=== PATIENT | female | born 1980 | race Caucasian/White ===

== ENCOUNTER 2016-12-03 22:26 | Emergency (ER) | payer OTHER ==
[~2016-12-03] VITALS: Ht 157.5 cm; Wt 65.0 kg
[~2016-12-03 22:26] MED LIST: BUSP10 PO; SOMA350T PO; VIST50CA PO
[2016-12-03 22:33] VITALS: BP 161/77; PULSE 98; RESP 18; TEMP 97.9; O2SAT 18; O2SAT 98
--- NOTE | 2016-12-03 22:41 | PD ---
HPI Chief Complaint: Fall Time Seen by Provider: 22:34 Travel History International Travel<30 days: No Contact w/Intl Traveler<30days: No Traveled to known affect area: No History of Present Illness HPI This is a 36-year-old female who presents to the emergency department having fallen in the bathroom being found by her . The patient hit her head. The patient has been drinking alcohol today. She also took some of her ' s Xanax yesterday. She says she's been very depressed. She is a full-time student and she has 4 children. She has been hospitalized at [facility] before in the setting of depression. She says her problems with alcohol have been more recent. She does intermittently have thoughts of hurting herself and she think she needs to talk to a psychiatrist. [facility] Past Medical History Arthritis: No Bipolar Disorder: Yes Depression: Yes Cancer: No Cardiovascular Problems: Yes (htn ) Cerebrovascular Accident: No Diabetes: No Diminished Hearing: No Endocrine: No Gastrointestinal Disorders: No Genitourinary: No Headaches: Yes Hypertension: Yes Immune Disorder: No Implanted Vascular Access Dvce: No Musculoskeletal: Yes (SCOLIOSIS) Neurologic: Yes (MIGRAINES, HEADACHES) Psychiatric: No Reproductive: No Respiratory: No Immunizations Current: Yes Migraines: No Seizures: No Influenza Vaccination: No ?: Not LMP: 2012- tubal : 5 Para: 4 Miscarriage: 1 Tubal Ligation: Yes (2011) Past Surgical History Abdominal Surgery: Yes (gastric bypass: 2008) Cardiac Surgery: No Section: Yes (X2) Ear Surgery: No Endocrine Surgery: No Eye Surgery: No Genitourinary Surgery: No Gynecologic Surgery: Yes (C SECTION, TUBAL LIGATION) Oral Surgery: No Thoracic Surgery: No Other Surgery: Yes (GASTRIC BYPASS, TUMMY TUCK, BREAST LIFT) Social History Alcohol Use: Yes ("I AM AN ALCOHOLIC, DRINK 4 TIMES PER WEEK" STATED 05/13/16) Tobacco Use: No Substance Use: No Allergies-Medications (Allergen,Severity, Reaction): Coded Allergies: No Known Allergies (Verified , 12/03/16) Reported Meds & Prescriptions Reported Meds & Active Scripts Active No Active Prescriptions or Reported Medications Review of Systems Except as stated in HPI: all other systems reviewed are Neg Physical Exam Narrative GENERAL:Well appearing, no acute distress SKIN: Warm and dry. HEAD: Atraumatic. Normocephalic. EYES: Pupils equal and round. No injection or drainage. ENT: Moist mucous membranes NECK: Trachea midline. CARDIOVASCULAR: Regular rate and rhythm. No murmur appreciated. RESPIRATORY: Clear to auscultation. Breath sounds equal bilaterally. GASTROINTESTINAL: Abdomen soft, non-tender, nondistended. MUSCULOSKELETAL: No obvious deformities. NEUROLOGICAL: Awake and alert. No obvious cranial nerve deficits. Moving all extremities. Some slurred speech. PSYCHIATRIC: Depressed mood. Poor insight and judgment. Data Data Last Documented VS Vital Signs Date Time Temp Pulse Resp B/P Pulse Ox O2 Delivery O2 Flow Rate FiO2 12/04/16 04:20 92 14 126/65 98 Room Air 12/03/16 22:33 97.9 Orders Complete Blood Count With Diff (12/03/16 22:38) Comprehensive Metabolic Panel (12/03/16 22:38) Alcohol (Ethanol) (12/03/16 22:38) Drug Screen, Random Urine (12/03/16 22:38) ^ Insert Iv (12/03/16 22:38) Sodium Chlor 0.9% 1000 Ml Inj (Ns 1000 M (12/03/16 22:45) Tylenol (Acetaminophen) (12/03/16 22:38) Salicylates (Aspirin) (12/03/16 22:38) Ct Brain W/O Iv Contrast(Rout) (12/03/16 ) Ed Urine Pregnancytest Poc (12/03/16 22:38) Thiamine Inj (Thiamine Inj) (12/03/16 22:45) Psych Screen (12/04/16 00:10) Labs Laboratory Tests Test 12/03/16 12/03/16 22:45 22:53 White Blood Count 7.2 TH/MM3 Red Blood Count 4.60 MIL/MM3 Hemoglobin 9.0 GM/DL Hematocrit 29.2 % Mean Corpuscular Volume 63.6 FL Mean Corpuscular Hemoglobin 19.5 PG Mean Corpuscular Hemoglobin 30.7 % Concent Red Cell Distribution Width 17.3 % Platelet Count 362 TH/MM3 Mean Platelet Volume 7.2 FL Neutrophils (%) (Auto) 60.1 % Lymphocytes (%) (Auto) 28.2 % Monocytes (%) (Auto) 8.0 % Eosinophils (%) (Auto) 2.5 % Basophils (%) (Auto) 1.2 % Neutrophils # (Auto) 4.3 TH/MM3 Lymphocytes # (Auto) 2.0 TH/MM3 Monocytes # (Auto) 0.6 TH/MM3 Eosinophils # (Auto) 0.2 TH/MM3 Basophils # (Auto) 0.1 TH/MM3 CBC Comment AUTO DIFF Differential Comment AUTO DIFF CONFIRMED Platelet Estimate NORMAL Platelet Morphology Comment NORMAL Ovalocytes 1+ Acanthocytes OCC Keratocytes OCC Sodium Level 146 MEQ/L Potassium Level 3.4 MEQ/L Chloride Level 112 MEQ/L Carbon Dioxide Level 23.2 MEQ/L Anion Gap 11 MEQ/L Blood Urea Nitrogen 5 MG/DL Creatinine 0.72 MG/DL Estimat Glomerular Filtration 92 ML/MIN Rate Random Glucose 108 MG/DL Calcium Level 8.5 MG/DL Total Bilirubin LESS THAN 0.1 MG/DL Aspartate Amino Transf 21 U/L (AST/SGOT) Alanine Aminotransferase 21 U/L (ALT/SGPT) Alkaline Phosphatase 92 U/L Total Protein 7.7 GM/DL Albumin 3.7 GM/DL Urine Opiates Screen NEG Acetaminophen Level LESS THAN 2.0 MCG/ML Urine Barbiturates Screen NEG Urine Amphetamines Screen NEG Urine Benzodiazepines Screen NEG Urine Cocaine Screen NEG Urine Cannabinoids Screen NEG Ethyl Alcohol Level 297 MG/DL Salicylates Level LESS THAN 1.7 MG/DL MDM Medical Decision Making Medical Screen Exam Complete: Yes Emergency Medical Condition: Yes Interpretation(s) Afebrile, mild tachycardia, hypertensive Anemia Mild hypokalemia Alcohol [address] head: No acute process Differential Diagnosis Intracranial hemorrhage, electrolyte abnormality, alcohol intoxication, substance intoxication Narrative Course This is a 36-year-old female who presents to the emergency department having had a closed head injury in the setting of alcohol intoxication. She expressed some depression when I was speaking to her when intoxicated. She was placed in a monitor and an IV was established. Labs were obtained which were reassuring with the exception of an elevated alcohol level. CT the head was negative for intracranial hemorrhage. She was ablated by psychiatry and found not to have any emergent needs at this time. Patient will be discharged home. Diagnosis Primary Impression: Closed head injury Qualified Code: S09.90XA - Closed head injury, initial encounter Additional Impression: Alcohol intoxication Qualified Code: F10.120 - Alcohol intoxication, uncomplicated Patient Instructions: General Instructions Additional Instructions: Follow up with Lucio Schwarz in regards to psychiatric or substance related issues at: [phone] [place] [id number] Med/Other Pt SpecificInfo: No Change to Meds Scripts No Active Prescriptions or Reported Meds Disposition: 01 DISCHARGE HOME Condition: Stable Marci Walton MD Dec 03, 2016 22:41
[2016-12-03] MEDS ORDERED: THIAMINE INJ 100 MG in SODIUM CHLORIDE 0.9% INJ 100 ML IV ONE (22:45)
[2016-12-03] MEDS ORDERED: SODIUM CHLOR 0.9% 1000 ML INJ 1,000 ML IV ONE (22:45)
[2016-12-03 22:53] VITALS: BP 143/69; PULSE 107; RESP 18; O2SAT 98
[2016-12-03 23:01] LABS: AUTOMATED NEUTROPHIL # 4.3 TH/MM3 (1.8-7.7); BASOPHIL # 0.1 TH/MM3 (0-0.2); BASOPHIL % 1.2 % (0.0-2.0); EOSINOPHIL # 0.2 TH/MM3 (0-0.4); EOSINOPHIL % 2.5 % (0.0-4.0); HEMATOCRIT 29.2 % (35.0-46.0); LYMPH % 28.2 % (9.0-44.0); MEAN CELL VOLUME 63.6 FL (80.0-100.0); MEAN CORPUSCULAR HEMOGLOBIN 19.5 PG (27.0-34.0); MEAN CORPUSCULAR HGB CONC 30.7 % (32.0-36.0); NEUT % 60.1 % (16.0-70.0); PLATELET COUNT 362 TH/MM3 (150-450); RED CELL DISTRIBUTION WIDTH 17.3 % (11.6-17.2); WHITE BLOOD COUNT 7.2 TH/MM3 (4.0-11.0)
[2016-12-03 23:05] LABS: HEMO FLAGS AUTO DIFF
[2016-12-03 23:08] LABS: AMPHETAMINE, URINE NEG (NEG); BARBITURATES, URINE NEG (NEG); COCAINE, URINE NEG (NEG)
[2016-12-03 23:13] LABS: ALT (GPT) 21 U/L (10-53); ANION GAP 11 MEQ/L (5-15); AST (GOT) 21 U/L (15-37); BICARBONATE 23.2 MEQ/L (21.0-32.0); BLOOD UREA NITROGEN 5 MG/DL (7-18); CHLORIDE 112 MEQ/L (98-107); GLOMERULAR FILTRATION RATE 92 ML/MIN (>89); POTASSIUM 3.4 MEQ/L (3.5-5.1); SODIUM (NA) 146 MEQ/L (136-145)
[2016-12-03 23:15] LABS: ACETAMINOPHEN LESS THAN 2.0 MCG/ML (10.0-30.0); ALKALINE PHOSPHATASE 92 U/L (45-117); TOTAL BILIRUBIN ADULT LESS THAN 0.1 MG/DL (0.2-1.0)
[2016-12-03 23:33] LABS: ACANTHOCYTES OCC (NORMAL); KERATOCYTES OCC (NORMAL); PLATELET ESTIMATE SMEAR NORMAL (NORMAL); PLATELET MORPHOLOGY NORMAL (NORMAL)
[2016-12-03 23:34] LABS: OVALOCYTES 1+ (NORMAL); SCAN/DIFF AUTO DIFF CONFIRMED
--- NOTE | 2016-12-03 23:41 | RADRPT ---
EXAM DATE/TIME: 12/03/2016 23:21 [facility] COMPARISON: CT BRAIN W/O CONTRAST, May 13, 2016, 23:56. INDICATIONS : Fell and hit head. RADIATION DOSE: 56.35 CTDIvol (mGy) MEDICAL HISTORY : Hypertension. SURGICAL HISTORY : None. ENCOUNTER: Initial ACUITY: 1 day PAIN SCALE: 5/10 LOCATION: cranial TECHNIQUE: Multiple contiguous axial images were obtained of the head. Using automated exposure control and adj ustment of the mA and/or kV according to patient size, radiation dose was kept as low as reasonably a chievable to obtain optimal diagnostic quality images. FINDINGS: CEREBRUM: The ventricles are normal for age. No evidence of midline shift, mass lesion, hemorrhage or acute in farction. No extra-axial fluid collections are seen. POSTERIOR FOSSA: The cerebellum and brainstem are intact. The 4th ventricle is midline. The cerebellopontine angle i s unremarkable. EXTRACRANIAL: The visualized portion of the orbits is intact. SKULL: The calvaria is intact. No evidence of skull fracture. CONCLUSION: Normal examination. Naun Priest MD on December 03, 2016 at 23:39 Board Certified Radiologist. This report was verified electronically.
[2016-12-04 04:20] VITALS: BP 126/65; PULSE 92; RESP 14; O2SAT 98
[2017-01-11] MEDS ORDERED: BUTA1CAP PO (16:24)
[2017-01-11] MEDS ORDERED: ROPI2 PO (16:26)
[2017-01-11] MEDS ORDERED: TOPA50TA7 PO (16:27)
[2017-01-11] MEDS ORDERED: PROZ40CA PO (16:27)
[2017-01-11] MEDS ORDERED: ZIPR40 PO (16:27)
[2017-01-11] MEDS ORDERED: FERR1TAB36 PO (17:41)
[2017-01-20] MEDS ORDERED: AMLO10 PO (14:41)
[2017-01-20] MEDS ORDERED: ROPI2 PO (14:41)
[2017-01-20] MEDS ORDERED: FERR1TAB36 PO (14:41)
[2017-02-02] MEDS ORDERED: LORA-474 PO (14:45)
[2017-02-02] MEDS ORDERED: ZOFR4TAB3 SL (14:46)
[2017-02-09] MEDS ORDERED: BUTA1CAP PO (15:16)
[2017-02-25] MEDS ORDERED: LACT10SO PO (11:19)
[2017-03-11] MEDS ORDERED: LORA-474 PO (10:51)
[2017-03-11] MEDS ORDERED: PERC10TA27 PO (10:59)
[2017-03-11] MEDS ORDERED: DEXA4TAB PO (10:59)
[2017-03-11] MEDS ORDERED: PROM25TA5 PO (10:59)
[2017-03-11] MEDS ORDERED: PROT40TA PO (10:59)
[2017-03-11] MEDS ORDERED: CARA1SUS3 PO (10:59)
[2017-03-11] MEDS ORDERED: MUPI2OIN TOPICAL (11:04)
[2017-03-11] MEDS ORDERED: BACT800T5 PO (11:04)
[2017-03-25] MEDS ORDERED: VITA500C9 CHEW (11:31)
[2017-03-25] MEDS ORDERED: [UNRECOGNIZED DRUG - CODE] RECTAL (11:32)
[2017-04-14] MEDS ORDERED: CYAN1000P IM (12:05)
[2017-04-14] MEDS ORDERED: BUTA1CAP PO (12:18)
[2017-04-19] MEDS ORDERED: AUGM875T3 PO (10:47)
[2017-04-30] MEDS ORDERED: BUTA1CAP PO (16:10)
== END 2016-12-04 07:18 | disposition home or self-care (01) ==
LOC: NEPE 22:26 → NEPA 12-04 07:18
DX: S09.90XA Unspecified injury of head, initial encounter (principal); F10.120 Alcohol abuse with intoxication, uncomplicated; I10 Essential (primary) hypertension; D64.9 Anemia, unspecified; E87.6 Hypokalemia; F32.9 Major depressive disorder, single episode, unspecified; Z86.59 Personal history of other mental and behavioral disorders; Z87.39 Personal history of other diseases of the musculoskeletal system and connective tissue; Z86.69 Personal history of other diseases of the nervous system and sense organs; W19.XXXA Unspecified fall, initial encounter; Y92.002 Bathroom of unspecified non-institutional (private) residence as the place of occurrence of the external cause
CPT/HCPCS: 70450; 80053; 80307; 80320; 84703; 85025; 96365; 99284; J3411; J7030; 80329; G0480

== ENCOUNTER 2016-12-07 13:38 | Emergency (ER) | payer OTHER ==
[~2016-12-07] VITALS: Ht 157.5 cm; Wt 67.0 kg
[2016-12-07 13:41] VITALS: BP 162/91; PULSE 86; RESP 16; TEMP 98.8; O2SAT 100
[2016-12-07] MEDS ORDERED: ACETAMINOPHEN/HYDROcodone 325 MG/5 MG TAB PO ONE (14:15)
--- NOTE | 2016-12-07 14:28 | RADHPO ---
EXAM DATE/TIME: 12/07/2016 14:12 [facility] COMPARISON: No previous studies available for comparison. INDICATIONS : Right foot pain after fall MEDICAL HISTORY : None. SURGICAL HISTORY : None. ENCOUNTER: Initial ACUITY: 1 day PAIN SCORE: 10/10 LOCATION: Right first digit. FINDINGS: Three view examination of the right foot demonstrates no soft tissue swelling, dislocation, or fractu re. The tarsal bones appear intact. The interphalangeal and metatarsophalangeal joints are intact. The calcaneus is intact. Bony mineralization is normal. CONCLUSION: Negative for fracture or dislocation. Followup in 7-10 days is suggested if symptoms persist. Dustin Loja MD FACR on December 07, 2016 at 14:26 Board Certified Radiologist. This report was verified electronically.
[2016-12-07] MEDS ORDERED: ULTR50TA5 PO ×2 (14:35→14:37)
--- NOTE | 2016-12-07 14:36 | PD ---
HPI Chief Complaint: Injury Time Seen by Provider: 13:52 Travel History International Travel<30 days: No Contact w/Intl Traveler<30days: No Traveled to known affect area: No History of Present Illness HPI Patient 36-year-old female presents emergency department for evaluation of right great toe and foot pain. Patient states she is walking the house and stubbed her toe on her son's toy approximately 45 minutes prior to arrival. States had immediate pain and has noticed bruising and swelling since. Isolates the pain to the right great toe MTP joint. Denies any other injuries. Denies any injuries to head neck back and other extremities abdomen torso. Otherwise healthy takes no blood thinners. PFSH Past Medical History Arthritis: No Bipolar Disorder: Yes Depression: Yes Cancer: No Cardiovascular Problems: Yes (htn ) Cerebrovascular Accident: No Diabetes: No Diminished Hearing: No Endocrine: No Gastrointestinal Disorders: No Genitourinary: No Headaches: Yes Hypertension: Yes Immune Disorder: No Implanted Vascular Access Dvce: No Musculoskeletal: Yes (SCOLIOSIS) Neurologic: Yes (MIGRAINES, HEADACHES) Psychiatric: No Reproductive: No Respiratory: No Immunizations Current: Yes Migraines: No Seizures: No Tetanus Vaccination: Unknown ?: Not LMP: ENDOMETRIAL ABLATION : 5 Para: 4 Miscarriage: 1 Tubal Ligation: Yes (2011) Past Surgical History Abdominal Surgery: Yes (gastric bypass: 2008) Cardiac Surgery: No Section: Yes (X2) Ear Surgery: No Endocrine Surgery: No Eye Surgery: No Genitourinary Surgery: No Gynecologic Surgery: Yes (C SECTION, TUBAL LIGATION) Neurologic Surgery: No Oral Surgery: No Thoracic Surgery: No Other Surgery: Yes (GASTRIC BYPASS, TUMMY TUCK, BREAST LIFT) Social History Alcohol Use: Yes ("I AM AN ALCOHOLIC, DRINK 4 TIMES PER WEEK" STATED 05/13/16) Tobacco Use: No Substance Use: Yes (ALCOHOL) Allergies-Medications (Allergen,Severity, Reaction): Coded Allergies: No Known Allergies (Verified , 12/07/16) Reported Meds & Prescriptions Reported Meds & Active Scripts Active Ultram (Tramadol HCl) 50 Mg Tab 50 Mg PO Q8H PRN Physical Exam Narrative GENERAL: Well-nourished, well-developed patient. SKIN: Warm and dry. HEAD: Normocephalic. EYES: No scleral icterus. No injection or drainage. NECK: Supple, trachea midline. No JVD or lymphadenopathy. CARDIOVASCULAR: Regular rate and rhythm without murmurs, gallops, or rubs. RESPIRATORY: Breath sounds equal bilaterally. No accessory muscle use. GASTROINTESTINAL: Abdomen soft, non-tender, nondistended. MUSCULOSKELETAL: Right lower extremity: There is some mild edema and bruising as well as tenderness to the right MTP joint. The bruising extends to the mid foot. Ankle is normal, and he is normal. Patient is a in emergency department albeit antalgic. Left lower extremity shows no apparent traumatic injury to foot ankle knee or hip. BACK: Nontender without obvious deformity. No midline CT or L-spine tenderness. Data Data Last Documented VS Vital Signs Date Time Temp Pulse Resp B/P Pulse Ox O2 Delivery O2 Flow Rate FiO2 12/07/16 13:41 98.8 86 16 162/91 100 Orders Foot, Complete ([id number]) (12/07/16 ) Acetamin-Hydrocod 325-5 Mg ([place] 5-325 (12/07/16 14:15) Splint Or Brace Apply/Monitor (12/07/16 14:38) Shoe Cast (12/07/16 ) MDM Medical Decision Making Medical Screen Exam Complete: Yes Emergency Medical Condition: Yes Differential Diagnosis Fracture, strain, contusion, sprain. Narrative Course Patient was given pain medicine emerge department if she has a ride home. X- rays obtain official read is negative however I believe I see a very subtle nondisplaced intra-articular fracture of the proximal phalanx of the great toe. I discussed this with the patient and recommended hard sole shoe and repeat x- rays in a week to 2 weeks. Need follow-up with her primary care physician. Otherwise symptomatically management. Diagnosis Primary Impression: Contusion of right great toe without damage to nail Qualified Code: S90.111A - Contusion of right great toe without damage to nail , initial encounter Additional Instructions: If he still hurting and weak recommend repeat x-rays with her primary care physician. There may be a small hairline fracture of the proximal phalanx of the right great toe. Med/Other Pt SpecificInfo: Prescription(s) given Scripts Tramadol (Ultram)50 Mg Tab50 Mg PO Q8H PRN (PAIN) #10 TAB Ref 0 Prov:Atif Miller MD 12/07/16 Disposition: 01 DISCHARGE HOME Condition: Stable Atif Miller MD Dec 07, 2016 14:36
[2017-01-11] MEDS ORDERED: BUTA1CAP PO (16:24)
[2017-01-11] MEDS ORDERED: ROPI2 PO (16:26)
[2017-01-11] MEDS ORDERED: PROZ40CA PO (16:27)
[2017-01-11] MEDS ORDERED: TOPA50TA7 PO (16:27)
[2017-01-11] MEDS ORDERED: ZIPR40 PO (16:27)
[2017-01-11] MEDS ORDERED: FERR1TAB36 PO (17:41)
[2017-01-20] MEDS ORDERED: ROPI2 PO (14:41)
[2017-01-20] MEDS ORDERED: AMLO10 PO (14:41)
[2017-01-20] MEDS ORDERED: FERR1TAB36 PO (14:41)
[2017-02-02] MEDS ORDERED: LORA-474 PO (14:45)
[2017-02-02] MEDS ORDERED: ZOFR4TAB3 SL (14:46)
[2017-02-09] MEDS ORDERED: BUTA1CAP PO (15:16)
[2017-02-25] MEDS ORDERED: LACT10SO PO (11:19)
[2017-03-11] MEDS ORDERED: LORA-474 PO (10:51)
[2017-03-11] MEDS ORDERED: DEXA4TAB PO (10:59)
[2017-03-11] MEDS ORDERED: CARA1SUS3 PO (10:59)
[2017-03-11] MEDS ORDERED: PROT40TA PO (10:59)
[2017-03-11] MEDS ORDERED: PERC10TA27 PO (10:59)
[2017-03-11] MEDS ORDERED: PROM25TA5 PO (10:59)
[2017-03-11] MEDS ORDERED: MUPI2OIN TOPICAL (11:04)
[2017-03-11] MEDS ORDERED: BACT800T5 PO (11:04)
[2017-03-25] MEDS ORDERED: VITA500C9 CHEW (11:31)
[2017-03-25] MEDS ORDERED: [UNRECOGNIZED DRUG - CODE] RECTAL (11:32)
[2017-04-14] MEDS ORDERED: CYAN1000P IM (12:05)
[2017-04-14] MEDS ORDERED: BUTA1CAP PO (12:18)
[2017-04-19] MEDS ORDERED: AUGM875T3 PO (10:47)
[2017-04-30] MEDS ORDERED: BUTA1CAP PO (16:10)
== END 2016-12-07 14:50 | disposition home or self-care (01) ==
LOC: PHEFT 13:38
DX: S90.111A Contusion of right great toe without damage to nail, initial encounter (principal); I10 Essential (primary) hypertension; Z86.79 Personal history of other diseases of the circulatory system; Z87.39 Personal history of other diseases of the musculoskeletal system and connective tissue; Z86.69 Personal history of other diseases of the nervous system and sense organs; Z86.59 Personal history of other mental and behavioral disorders; W22.09XA Striking against other stationary object, initial encounter; Y92.009 Unspecified place in unspecified non-institutional (private) residence as the place of occurrence of the external cause
CPT/HCPCS: 73630; 99283; L3260

== ENCOUNTER 2016-12-30 01:15 | Emergency (ER) | payer OTHER ==
[~2016-12-30 01:15] MED LIST changes: -BUSP10 PO; -SOMA350T PO; +ULTR50TA5 PO; -VIST50CA PO
[2016-12-30 01:25] VITALS: BP 166/90; PULSE 82; RESP 16; TEMP 98; O2SAT 98
[2016-12-30] MEDS ORDERED: ONDANSETRON ODT 4 MG TAB PO ONE (01:45)
--- NOTE | 2016-12-30 01:50 | PD ---
HPI Chief Complaint: Psychiatric Symptoms Time Seen by Provider: 01:41 Travel History International Travel<30 days: No Contact w/Intl Traveler<30days: No Traveled to known affect area: No History of Present Illness HPI 36-year-old white female presents to emergency department under [place] act by PD. She had called police notifying that she was feeling increasingly depressed and suicidal. She admits to drinking too high alcohol content beers tonight. She states she has a history of bipolar disorder but does not take any medications. She also has a history of hypertension which is also untreated. She has had thoughts of cutting herself. 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 She is raising 5 boys at home. She denies any toxic ingestions. No homicidal ideation. She feels very overwhelmed. She had some nausea and vomiting earlier today. She also states that she has had dumping syndrome since having gastric bypass. Her diabetes has resolved after her weight loss from her gastric bypass. PFSH Past Medical History Narrative Medical Bipolar, hypertension, diabetes Arthritis: No Bipolar Disorder: Yes Depression: Yes Cancer: No Cardiovascular Problems: Yes (htn ) Cerebrovascular Accident: No Diabetes: No Diminished Hearing: No Endocrine: No Gastrointestinal Disorders: No Genitourinary: No Headaches: Yes Hypertension: Yes Immune Disorder: No Implanted Vascular Access Dvce: No Musculoskeletal: Yes (SCOLIOSIS) Neurologic: Yes (MIGRAINES, HEADACHES) Psychiatric: Yes (BIPOLAR ) Reproductive: No Respiratory: No Immunizations Current: Yes Migraines: No Seizures: No Tetanus Vaccination: < 5 Years ?: Not LMP: 08/2016 : 6 Para: 5 Miscarriage: 1 Tubal Ligation: Yes (2011) Past Surgical History Narrative Surgical Gastric bypass, bowel obstruction, C-sections 3, tubal ligation, tummy tuck, breast lift Abdominal Surgery: Yes (gastric bypass: 2009) Cardiac Surgery: No Section: Yes (X2) Ear Surgery: No Endocrine Surgery: No Eye Surgery: No Genitourinary Surgery: No Gynecologic Surgery: Yes (C SECTION, TUBAL LIGATION) Neurologic Surgery: No Oral Surgery: No Thoracic Surgery: No Other Surgery: Yes (GASTRIC BYPASS, TUMMY TUCK, BREAST LIFT) Social History Alcohol Use: Yes (3X PER WEEK ) Tobacco Use: No Substance Use: Yes (ALCOHOL) Allergies-Medications (Allergen,Severity, Reaction): Coded Allergies: No Known Allergies (Verified , 12/07/16) Reported Meds & Prescriptions Reported Meds & Active Scripts Active No Active Prescriptions or Reported Medications Review of Systems Except as stated in HPI: all other systems reviewed are Neg General / Constitutional: No: Fever, Chills Eyes: No: Diploplia HENT: No: Headaches, Lightheadedness Cardiovascular: No: Chest Pain or Discomfort, Palpitations Respiratory: No: Cough, Shortness of Breath Gastrointestinal: Positive: Nausea, Vomiting, Diarrhea, Loss of Appetite, No: Abdominal Pain, Indigestion Genitourinary: No: Frequency, Dysuria Musculoskeletal: No: Myalgias, Arthralgias Skin: No Rash, No Itching Neurologic: No: Weakness, Dizziness Psychiatric: Positive: Depression, Suicidal Ideations, Mood Disorder, Substance Abuse, No: Anxiety, Disorder of Thought, Homicidal Ideation Physical Exam Narrative GENERAL: Well-nourished, well-developed patient. Slurred speech and appears intoxicated SKIN: Warm and dry. HEAD: Normocephalic and atraumatic. EYES: No scleral icterus. No injection or drainage. ENT: No nasal drainage noted. Mucous membranes pink. Airway patent. NECK: Supple, trachea midline. Moves head freely without obvious discomfort. CARDIOVASCULAR: Regular rate and rhythm without murmurs, gallops, or rubs. RESPIRATORY: Breath sounds equal bilaterally. No accessory muscle use. GASTROINTESTINAL: Abdomen soft, non-tender, nondistended. EXTREMITIES: No cyanosis or edema. BACK: Nontender without obvious deformity. No CVA tenderness. NEURO: Patient is alert and oriented. no sensorimotor deficits. Nonfocal. Slurred speech. PSYCH: No delusions. No auditory or visual hallucinations. Data Data Last Documented VS Vital Signs Date Time Temp Pulse Resp B/P Pulse Ox O2 Delivery O2 Flow Rate FiO2 12/30/16 01:27 16 12/30/16 01:25 98.0 82 166/90 98 Orders Complete Blood Count With Diff (12/30/16 01:38) Comprehensive Metabolic Panel (12/30/16 01:38) Urinalysis - C+S If Indicated (12/30/16 01:38) Ed Urine Pregnancytest Poc (12/30/16 01:38) Psych Screen (12/30/16 01:38) Drug Screen, Random Urine (12/30/16 01:38) Alcohol (Ethanol) (12/30/16 01:38) Salicylates (Aspirin) (12/30/16 01:38) Tylenol (Acetaminophen) (12/30/16 01:38) Ondansetron Odt (Zofran Odt) (12/30/16 01:45) Lipase (12/30/16 01:38) Potassium Chloride (Kcl) (12/30/16 03:00) Labs Laboratory Tests Test 12/30/16 01:45 White Blood Count 12.2 TH/MM3 Red Blood Count 4.81 MIL/MM3 Hemoglobin 8.8 GM/DL Hematocrit 29.2 % Mean Corpuscular Volume 60.8 FL Mean Corpuscular Hemoglobin 18.4 PG Mean Corpuscular Hemoglobin 30.2 % Concent Red Cell Distribution Width 17.5 % Platelet Count 385 TH/MM3 Mean Platelet Volume 8.4 FL Neutrophils (%) (Auto) 64.2 % Lymphocytes (%) (Auto) 26.7 % Monocytes (%) (Auto) 6.0 % Eosinophils (%) (Auto) 1.5 % Basophils (%) (Auto) 1.6 % Neutrophils # (Auto) 7.8 TH/MM3 Lymphocytes # (Auto) 3.2 TH/MM3 Monocytes # (Auto) 0.7 TH/MM3 Eosinophils # (Auto) 0.2 TH/MM3 Basophils # (Auto) 0.2 TH/MM3 CBC Comment AUTO DIFF Differential Comment AUTO DIFF CONFIRMED Platelet Estimate NORMAL Platelet Morphology Comment NORMAL Ovalocytes 1+ Acanthocytes OCC Keratocytes OCC Urine Color COLORLESS Urine Turbidity CLEAR Urine pH 5.5 Urine Specific Laura 1.001 Urine Protein NEG mg/dL Urine Glucose (UA) NEG mg/dL Urine Ketones NEG mg/dL Urine Occult Blood NEG Urine Nitrite NEG Urine Bilirubin NEG Urine Urobilinogen LESS THAN 2.0 MG/DL Urine Leukocyte Esterase NEG Urine RBC LESS THAN 1 /hpf Urine WBC LESS THAN 1 /hpf Urine Squamous Epithelial 1 /hpf Cells Microscopic Urinalysis Comment CULT NOT INDICATED Sodium Level 141 MEQ/L Potassium Level 3.2 MEQ/L Chloride Level 108 MEQ/L Carbon Dioxide Level 20.6 MEQ/L Anion Gap 12 MEQ/L Blood Urea Nitrogen 3 MG/DL Creatinine 0.65 MG/DL Estimat Glomerular Filtration 104 ML/MIN Rate Random Glucose 104 MG/DL Calcium Level 8.3 MG/DL Total Bilirubin 0.2 MG/DL Aspartate Amino Transf 14 U/L (AST/SGOT) Alanine Aminotransferase 17 U/L (ALT/SGPT) Alkaline Phosphatase 101 U/L Total Protein 7.8 GM/DL Albumin 3.8 GM/DL Lipase 290 U/L Salicylates Level LESS THAN 1.7 MG/DL Urine Opiates Screen NEG Urine Barbiturates Screen NEG Urine Amphetamines Screen NEG Urine Benzodiazepines Screen NEG Urine Cocaine Screen NEG Urine Cannabinoids Screen NEG Ethyl Alcohol Level 258 MG/DL MDM Medical Decision Making Medical Screen Exam Complete: Yes Emergency Medical Condition: Yes Medical Record Reviewed: Yes Interpretation(s) Laboratory Tests Test 12/30/16 01:45 White Blood Count 12.2 TH/MM3 Red Blood Count 4.81 MIL/MM3 Hemoglobin 8.8 GM/DL Hematocrit 29.2 % Mean Corpuscular Volume 60.8 FL Mean Corpuscular Hemoglobin 18.4 PG Mean Corpuscular Hemoglobin 30.2 % Concent Red Cell Distribution Width 17.5 % Platelet Count 385 TH/MM3 Mean Platelet Volume 8.4 FL Neutrophils (%) (Auto) 64.2 % Lymphocytes (%) (Auto) 26.7 % Monocytes (%) (Auto) 6.0 % Eosinophils (%) (Auto) 1.5 % Basophils (%) (Auto) 1.6 % Neutrophils # (Auto) 7.8 TH/MM3 Lymphocytes # (Auto) 3.2 TH/MM3 Monocytes # (Auto) 0.7 TH/MM3 Eosinophils # (Auto) 0.2 TH/MM3 Basophils # (Auto) 0.2 TH/MM3 CBC Comment AUTO DIFF Differential Comment AUTO DIFF CONFIRMED Platelet Estimate NORMAL Platelet Morphology Comment NORMAL Ovalocytes 1+ Acanthocytes OCC Keratocytes OCC Urine Color COLORLESS Urine Turbidity CLEAR Urine pH 5.5 Urine Specific Laura 1.001 Urine Protein NEG mg/dL Urine Glucose (UA) NEG mg/dL Urine Ketones NEG mg/dL Urine Occult Blood NEG Urine Nitrite NEG Urine Bilirubin NEG Urine Urobilinogen LESS THAN 2.0 MG/DL Urine Leukocyte Esterase NEG Urine RBC LESS THAN 1 /hpf Urine WBC LESS THAN 1 /hpf Urine Squamous Epithelial 1 /hpf Cells Microscopic Urinalysis Comment CULT NOT INDICATED Sodium Level 141 MEQ/L Potassium Level 3.2 MEQ/L Chloride Level 108 MEQ/L Carbon Dioxide Level 20.6 MEQ/L Anion Gap 12 MEQ/L Blood Urea Nitrogen 3 MG/DL Creatinine 0.65 MG/DL Estimat Glomerular Filtration 104 ML/MIN Rate Random Glucose 104 MG/DL Calcium Level 8.3 MG/DL Total Bilirubin 0.2 MG/DL Aspartate Amino Transf 14 U/L (AST/SGOT) Alanine Aminotransferase 17 U/L (ALT/SGPT) Alkaline Phosphatase 101 U/L Total Protein 7.8 GM/DL Albumin 3.8 GM/DL Lipase 290 U/L Salicylates Level LESS THAN 1.7 MG/DL Urine Opiates Screen NEG Urine Barbiturates Screen NEG Urine Amphetamines Screen NEG Urine Benzodiazepines Screen NEG Urine Cocaine Screen NEG Urine Cannabinoids Screen NEG Ethyl Alcohol Level 258 MG/DL Differential Diagnosis MDM: High Differential diagnoses: Schizophrenia, schizoaffective disorder, bipolar, anxiety, depression, adjustment reaction, mood disorder NOS, ODD, depressive disorder NOS, dementia, dementia with agitation, psychosis NOS, substance induced mood disorder, intermittent explosive disorder, Asperger syndrome, infection,electrolyte abnormality, malingering. Narrative Course Mental health screening discussed with the patient. Psychiatric screen ordered. The patient is medically cleared. Patient given 20 mEq potassium by mouth. This in under that she has anemia on her last ER visit. This is alcohol induced mood disorder, bipolar Diagnosis Primary Impression: Alcohol-induced mood disorder Additional Impressions: Bipolar 1 disorder, depressed Chronic anemia Hypokalemia Patient Instructions: General Instructions Scripts No Active Prescriptions or Reported Meds Disposition: 01 DISCHARGE HOME Condition: Stable Yg Sandoval Dec 30, 2016 01:49
[2016-12-30 02:10] LABS: AUTOMATED NEUTROPHIL # 7.8 TH/MM3 (1.8-7.7); BASOPHIL # 0.2 TH/MM3 (0-0.2); BASOPHIL % 1.6 % (0.0-2.0); EOSINOPHIL # 0.2 TH/MM3 (0-0.4); EOSINOPHIL % 1.5 % (0.0-4.0); HEMATOCRIT 29.2 % (35.0-46.0); LYMPH % 26.7 % (9.0-44.0); LYMPHOCYTE # 3.2 TH/MM3 (1.0-4.8); MEAN CELL VOLUME 60.8 FL (80.0-100.0); MEAN CORPUSCULAR HEMOGLOBIN 18.4 PG (27.0-34.0); MEAN CORPUSCULAR HGB CONC 30.2 % (32.0-36.0); NEUT % 64.2 % (16.0-70.0); PLATELET COUNT 385 TH/MM3 (150-450); RED BLOOD COUNT 4.81 MIL/MM3 (4.00-5.30); RED CELL DISTRIBUTION WIDTH 17.5 % (11.6-17.2); WHITE BLOOD COUNT 12.2 TH/MM3 (4.0-11.0)
[2016-12-30 02:14] LABS: HEMO FLAGS AUTO DIFF
[2016-12-30 02:22] LABS: BLOOD, URINE NEG (NEG); GLUCOSE,URINE NEG (NEG); KETONE, URINE NEG (NEG); NITRITE,URINE NEG (NEG); PH, URINE 5.5 (5.0-8.5); SQUAMOUS EPITHELIAL CELL URINE 1 /hpf (0-5); URINE COLOR COLORLESS (YELLW/STRAW)
[2016-12-30 02:26] LABS: COMMENT (UR) CULT NOT INDICATED; CULTURE IF INDICATED CULT NOT INDICATED
[2016-12-30 02:29] LABS: AMPHETAMINE, URINE NEG (NEG); BARBITURATES, URINE NEG (NEG); COCAINE, URINE NEG (NEG)
[2016-12-30 02:41] LABS: ACANTHOCYTES OCC (NORMAL); ANION GAP 12 MEQ/L (5-15); AST (GOT) 14 U/L (15-37); BICARBONATE 20.6 MEQ/L (21.0-32.0); BLOOD UREA NITROGEN 3 MG/DL (7-18); CHLORIDE 108 MEQ/L (98-107); GLOMERULAR FILTRATION RATE 104 ML/MIN (>89); KERATOCYTES OCC (NORMAL); OVALOCYTES 1+ (NORMAL); POTASSIUM 3.2 MEQ/L (3.5-5.1); SODIUM (NA) 141 MEQ/L (136-145)
[2016-12-30 02:42] LABS: PLATELET ESTIMATE SMEAR NORMAL (NORMAL); PLATELET MORPHOLOGY NORMAL (NORMAL); SCAN/DIFF AUTO DIFF CONFIRMED
[2016-12-30 02:46] LABS: ALKALINE PHOSPHATASE 101 U/L (45-117); ALT (GPT) 17 U/L (10-53); TOTAL BILIRUBIN ADULT 0.2 MG/DL (0.2-1.0)
[2016-12-30] MEDS ORDERED: POTASSIUM CHLORIDE 20 MEQ CONTROLLED RELEASE TAB PO ONE (03:00)
[2016-12-30 03:07] LABS: ACETAMINOPHEN LESS THAN 2.0 MCG/ML (10.0-30.0)
[2016-12-30 08:15] VITALS: BP 131/61; PULSE 98; RESP 18; O2SAT 98
[2016-12-30] MEDS ORDERED: chlordiazePOXIDE 25 MG CAP PO STA (08:46)
[2017-01-11] MEDS ORDERED: BUTA1CAP PO (16:24)
[2017-01-11] MEDS ORDERED: ROPI2 PO (16:26)
[2017-01-11] MEDS ORDERED: ZIPR40 PO (16:27)
[2017-01-11] MEDS ORDERED: PROZ40CA PO (16:27)
[2017-01-11] MEDS ORDERED: TOPA50TA7 PO (16:27)
[2017-01-11] MEDS ORDERED: FERR1TAB36 PO (17:41)
[2017-01-20] MEDS ORDERED: FERR1TAB36 PO (14:41)
[2017-01-20] MEDS ORDERED: ROPI2 PO (14:41)
[2017-01-20] MEDS ORDERED: AMLO10 PO (14:41)
[2017-02-02] MEDS ORDERED: LORA-474 PO (14:45)
[2017-02-02] MEDS ORDERED: ZOFR4TAB3 SL (14:46)
[2017-02-09] MEDS ORDERED: BUTA1CAP PO (15:16)
[2017-02-25] MEDS ORDERED: LACT10SO PO (11:19)
[2017-03-11] MEDS ORDERED: LORA-474 PO (10:51)
[2017-03-11] MEDS ORDERED: PROT40TA PO (10:59)
[2017-03-11] MEDS ORDERED: PERC10TA27 PO (10:59)
[2017-03-11] MEDS ORDERED: CARA1SUS3 PO (10:59)
[2017-03-11] MEDS ORDERED: PROM25TA5 PO (10:59)
[2017-03-11] MEDS ORDERED: DEXA4TAB PO (10:59)
[2017-03-11] MEDS ORDERED: BACT800T5 PO (11:04)
[2017-03-11] MEDS ORDERED: MUPI2OIN TOPICAL (11:04)
[2017-03-25] MEDS ORDERED: VITA500C9 CHEW (11:31)
[2017-03-25] MEDS ORDERED: [UNRECOGNIZED DRUG - CODE] RECTAL (11:32)
[2017-04-14] MEDS ORDERED: CYAN1000P IM (12:05)
[2017-04-14] MEDS ORDERED: BUTA1CAP PO (12:18)
[2017-04-19] MEDS ORDERED: AUGM875T3 PO (10:47)
[2017-04-30] MEDS ORDERED: BUTA1CAP PO (16:10)
== END 2016-12-30 10:12 ==
LOC: NEPA 01:15
DX: F10.94 Alcohol use, unspecified with alcohol-induced mood disorder (principal); F31.9 Bipolar disorder, unspecified; E87.6 Hypokalemia; D64.9 Anemia, unspecified; I10 Essential (primary) hypertension; E11.9 Type 2 diabetes mellitus without complications; M41.9 Scoliosis, unspecified; Y90.8 Blood alcohol level of 240 mg/100 ml or more
CPT/HCPCS: 80053; 80307; 80320; 80329; 81001; 83690; 85025; 99284; G0480

== ENCOUNTER 2017-02-18 18:02 | Emergency (ER) | payer OTHER ==
[~2017-02-18] VITALS: Ht 160 cm; Wt 58.0 kg
[~2017-02-18 18:02] MED LIST changes: +AMLO10 PO; +BUTA1CAP PO; +FERR1TAB36 PO; +LORA-474 PO; +PROZ40CA PO; +ROPI2 PO; +TOPA50TA7 PO; -ULTR50TA5 PO; +ZIPR40 PO; +ZOFR4TAB3 SL
[2017-02-18 18:08] VITALS: BP 152/97; PULSE 82; RESP 18; TEMP 98.1; O2SAT 100
[2017-02-18 18:27] LABS: BLOOD, URINE NEG (NEG); GLUCOSE,URINE NEG (NEG); KETONE, URINE NEG (NEG); PH, URINE 5.5 (5.0-8.5)
[2017-02-18 18:33] LABS: NITRITE,URINE POS (NEG); URINE COLOR YELLOW (YELLW/STRAW)
[2017-02-18 18:34] LABS: BACTERIA, URINE MANY /hpf; COMMENT (UR) CULTURE INDICATED; CULTURE IF INDICATED CULTURE INDICATED; SQUAMOUS EPITHELIAL CELL URINE 0-5 /hpf (0-5)
[2017-02-18] MEDS ORDERED: MACR100C2 PO (18:55)
--- NOTE | 2017-02-18 18:57 | PD ---
HPI Chief Complaint: Complaint Time Seen by Provider: 18:55 Travel History International Travel<30 days: No Contact w/Intl Traveler<30days: No Traveled to known affect area: No History of Present Illness HPI 36-year-old female presents to the emergency department for evaluation of low back pain, burning with urination and nausea with 1 episode of vomiting today. Patient states that all these symptoms began today. States that she had one episode of nonbloody nonbilious emesis. Describes the back pain as sharp on both sides. States that the back pain radiates to her abdomen. Denies any fever, chills, diarrhea, constipation, hematuria, vaginal discharge. Prior abdominal surgeries include section 3, tubal ligation, colectomy status post bowel obstruction. No other complaints. PFSH Past Medical History Arthritis: No Bipolar Disorder: Yes Depression: Yes Cancer: No Cardiovascular Problems: Yes (HTN) Cerebrovascular Accident: No Diabetes: No Diminished Hearing: No Endocrine: No Gastrointestinal Disorders: No Genitourinary: No Headaches: Yes Hypertension: Yes Immune Disorder: No Implanted Vascular Access Dvce: No Musculoskeletal: Yes (SCOLIOSIS) Neurologic: Yes (MIGRAINES, HEADACHES) Psychiatric: Yes (BIPOLAR ) Reproductive: No Respiratory: No Immunizations Current: Yes Migraines: No Seizures: No Influenza Vaccination: No ?: Not LMP: 20 MONTHS : 6 Para: 5 Miscarriage: 1 Tubal Ligation: Yes (2011) Past Surgical History Abdominal Surgery: Yes (gastric bypass: 2009) Cardiac Surgery: No Section: Yes (X2) Ear Surgery: No Endocrine Surgery: No Eye Surgery: No Genitourinary Surgery: No Gynecologic Surgery: Yes (C SECTION, TUBAL LIGATION) Neurologic Surgery: No Oral Surgery: No Thoracic Surgery: No Other Surgery: Yes (GASTRIC BYPASS, TUMMY TUCK, BREAST LIFT) Social History Alcohol Use: Yes (3X PER WEEK ) Tobacco Use: No Substance Use: Yes (ALCOHOL) Allergies-Medications (Allergen,Severity, Reaction): Coded Allergies: No Known Allergies (Verified , 02/18/17) Reported Meds & Prescriptions Reported Meds & Active Scripts Active Macrobid (Nitrofurantoin Monoh/Nitrofur Macro) 100 Mg Cap 100 Mg PO BID 10 Days Fioricet (Dfxjtadvkl-Mnimutdclpmio-Hptjgthq) 50-300-40 Mg Cap 1-2 Cap PO Q6H PRN Norvasc (Amlodipine Besylate) 10 Mg Tab 10 Mg PO DAILY Iron (Ferrous Sulfate) 325 Mg Tab 325 Mg PO BIDPC Take after a meal. Requip (Ropinirole HCl) 2 Mg Tab 2 Mg PO HS Reported Topamax (Topiramate) 50 Mg Tab 50 Mg PO BID Prozac (Fluoxetine HCl) 40 Mg Cap 40 Mg PO DAILY Geodon (Ziprasidone) 40 Mg Cap 40 Mg PO HS Review of Systems Except as stated in HPI: all other systems reviewed are Neg Physical Exam Narrative GENERAL: Well-nourished and well-developed pleasant female patient in no acute distress who is nontoxic appearing. SKIN: Warm and dry. HEAD: Normocephalic and atraumatic. EYES: No injection, drainage, or hyphema noted. PERRLA. EOMI. ENT: No nasal drainage noted. Oropharynx is clear. NECK: Supple and the trachea is midline. CARDIOVASCULAR: Regular rate and rhythm. RESPIRATORY: Breath sounds are equal bilaterally with no accessory muscle use, wheezing, rhonchi, or crackles. GASTROINTESTINAL: Abdomen is soft, non-tender, and nondistended. Negative McBurney's point. Negative Walton sign. No rebound tenderness or guarding. MUSCULOSKELETAL: No obvious deformities, swelling, cyanosis, or ecchymosis is present throughout the upper and lower extremities. Patient has full range of motion without any signs of neurovascular compromise. BACK: CVA tenderness bilaterally. NEUROLOGICAL: Awake, alert, and oriented. Normal speech and gait. Cranial nerves are grossly intact. Data Data Last Documented VS Vital Signs Date Time Temp Pulse Resp B/P Pulse Ox O2 Delivery O2 Flow Rate FiO2 02/18/17 18:08 98.1 82 18 152/97 100 Orders Urinalysis - C+S If Indicated (02/18/17 18:16) Urine Culture (02/18/17 18:20) Ed Urine Pregnancytest Poc (02/18/17 18:43) Labs Laboratory Tests Test 02/18/17 18:20 Urine Color YELLOW Urine Turbidity CLOUDY Urine pH 5.5 Urine Specific [place] 1.020 Urine Protein TRACE mg/dL Urine Glucose (UA) NEG mg/dL Urine Ketones NEG mg/dL Urine Occult Blood NEG Urine Nitrite POS Urine Bilirubin NEG Urine Leukocyte Esterase MOD Urine RBC 3-5 /hpf Urine WBC 25-49 /hpf Urine Squamous Epithelial 0-5 /hpf Cells Urine Bacteria MANY /hpf Microscopic Urinalysis Comment CULTURE INDICATED MDM Medical Decision Making Medical Screen Exam Complete: Yes Emergency Medical Condition: Yes Differential Diagnosis Pyelonephritis versus cystitis versus urethritis versus kidney stone Narrative Course 36-year-old female presents to the emergency department for evaluation of back pain and burning with urination. Patient is afebrile, vital signs are stable. Abdominal examination is benign. ED urine test is negative. Urinalysis shows positive nitrites, moderate leukocyte esterase, 25-49 white blood cells and many bacteria. This is consistent with a urinary tract infection. She'll be treated with Macrobid. Instructed to return to the emergency department should she have any worsening of symptoms. Patient verbalizes understanding and agreement with treatment plan. Diagnosis Primary Impression: Urinary tract infection Qualified Code: N39.0 - Urinary tract infection without hematuria, site unspecified Referrals: Primary Care Physician Patient Instructions: General Instructions, Urinary Tract Infection in Women ( ED) Additional Instructions: Take medication as prescribed. Follow-up with your Primary Care Physician. Return to the ED for any acute worsening of symptoms. Med/Other Pt SpecificInfo: Prescription(s) given Scripts Nitrofurantoin Monohydrate Macrocrystals (Macrobid)100 Mg Hyp263 Mg PO BID 10 Days Ref 0 Prov:Aris Jimenez MD 02/18/17 Disposition: 01 DISCHARGE HOME Condition: Stable Micaela Li Feb 18, 2017 18:56
[2017-02-25] MEDS ORDERED: LACT10SO PO (11:19)
[2017-03-11] MEDS ORDERED: LORA-474 PO (10:51)
[2017-03-11] MEDS ORDERED: PROM25TA5 PO (10:59)
[2017-03-11] MEDS ORDERED: DEXA4TAB PO (10:59)
[2017-03-11] MEDS ORDERED: CARA1SUS3 PO (10:59)
[2017-03-11] MEDS ORDERED: PERC10TA27 PO (10:59)
[2017-03-11] MEDS ORDERED: PROT40TA PO (10:59)
[2017-03-11] MEDS ORDERED: BACT800T5 PO (11:04)
[2017-03-11] MEDS ORDERED: MUPI2OIN TOPICAL (11:04)
[2017-03-25] MEDS ORDERED: VITA500C9 CHEW (11:31)
[2017-03-25] MEDS ORDERED: [UNRECOGNIZED DRUG - CODE] RECTAL (11:32)
[2017-04-14] MEDS ORDERED: CYAN1000P IM (12:05)
[2017-04-14] MEDS ORDERED: BUTA1CAP PO (12:18)
[2017-04-19] MEDS ORDERED: AUGM875T3 PO (10:47)
[2017-04-30] MEDS ORDERED: BUTA1CAP PO (16:10)
== END 2017-02-18 19:08 | disposition home or self-care (01) ==
LOC: PHEFT 18:02
DX: N39.0 Urinary tract infection, site not specified (principal); F31.9 Bipolar disorder, unspecified; I10 Essential (primary) hypertension; M41.9 Scoliosis, unspecified; Z98.84 Bariatric surgery status
CPT/HCPCS: 81001; 84703; 87077; 87086; 87186; 99283

== ENCOUNTER 2017-02-21 12:57 | Emergency (ER) | payer OTHER ==
[~2017-02-21] VITALS: Ht 157.5 cm; Wt 57.4 kg
[~2017-02-21 12:57] MED LIST changes: -LORA-474 PO; +MACR100C2 PO; -ZOFR4TAB3 SL
[2017-02-21 13:01] VITALS: BP 146/92; PULSE 101; RESP 16; TEMP 98.5; O2SAT 100
[2017-02-21] MEDS ORDERED: SODIUM CHLOR 0.9% 1000 ML INJ 1,000 ML IV SCH (13:11)
[2017-02-21] MEDS ORDERED: MORPHINE SULFATE 4 MG/ML INJ IV PUSH ONE (13:15)
[2017-02-21] MEDS ORDERED: ONDANSETRON HCL 4 MG/2 ML VIAL IVP ONE (13:15)
[2017-02-21] MEDS ORDERED: SODIUM CHLORIDE 0.9% FLUSH 10 ML FLUSH IV FLUSH PRN (13:15)
--- NOTE | 2017-02-21 13:20 | PD ---
HPI Chief Complaint: Abdominal Pain Time Seen by Provider: 13:04 Travel History International Travel<30 days: No Contact w/Intl Traveler<30days: No Traveled to known affect area: No History of Present Illness HPI The patient is a 36-year-old female who presents to the emergency department for abdominal pain. The patient notes a one-day history of abdominal pain, started this morning, was originally. Umbilical, now is located in the right lower quadrant. The patient states she was diagnosed with urinary tract infection several days ago, however, has no current dysuria, frequency, or urgency. The patient does note a history of 3 previous sections, endometrial ablation, tummy tuck, and surgery for previous small bowel obstruction. The patient also states she gastric bypass that was performed in [place], [place]. The patient then had surgery performed for small bowel obstruction by Dr. Rockwell. The patient denies any current fever , chills, or sweats. She does complain of nausea and states she's not had a bowel movement in 2 weeks. She has continued to pass flatus. Symptoms are moderate, there are no alleviating or exacerbating factors. PFSH Past Medical History Hx Anticoagulant Therapy: No Arthritis: No Bipolar Disorder: Yes Depression: Yes Cancer: No Cardiovascular Problems: Yes (HTN) Cerebrovascular Accident: No Diabetes: Yes (BORDERLINE) Diminished Hearing: No Endocrine: No Gastrointestinal Disorders: No Genitourinary: No Headaches: Yes Hypertension: Yes Immune Disorder: No Implanted Vascular Access Dvce: No Musculoskeletal: Yes (SCOLIOSIS) Neurologic: Yes (MIGRAINES, HEADACHES) Psychiatric: Yes (BIPOLAR ) Reproductive: No Respiratory: No Immunizations Current: Yes Migraines: No Seizures: No ?: Not : 6 Para: 5 Miscarriage: 1 Tubal Ligation: Yes (2011) Past Surgical History Abdominal Surgery: Yes (gastric bypass: 2008) Cardiac Surgery: No Section: Yes (X2) Ear Surgery: No Endocrine Surgery: No Eye Surgery: No Genitourinary Surgery: No Gynecologic Surgery: Yes (C SECTION, TUBAL LIGATION) Neurologic Surgery: No Oral Surgery: No Thoracic Surgery: No Other Surgery: Yes (GASTRIC BYPASS, TUMMY TUCK, BREAST LIFT) Social History Alcohol Use: Yes (3X PER WEEK ) Tobacco Use: No Substance Use: Yes (ALCOHOL) Allergies-Medications (Allergen,Severity, Reaction): Coded Allergies: No Known Allergies (Verified , 02/21/17) Reported Meds & Prescriptions Reported Meds & Active Scripts Active Macrobid (Nitrofurantoin Monoh/Nitrofur Macro) 100 Mg Cap 100 Mg PO BID 10 Days Fioricet (Cybpcgywir-Byqhmjzadhufj-Psbgkpvt) 50-300-40 Mg Cap 1-2 Cap PO Q6H PRN Norvasc (Amlodipine Besylate) 10 Mg Tab 10 Mg PO DAILY Iron (Ferrous Sulfate) 325 Mg Tab 325 Mg PO BIDPC Take after a meal. Requip (Ropinirole HCl) 2 Mg Tab 2 Mg PO HS Reported Topamax (Topiramate) 50 Mg Tab 50 Mg PO BID Prozac (Fluoxetine HCl) 40 Mg Cap 40 Mg PO DAILY Geodon (Ziprasidone) 40 Mg Cap 40 Mg PO HS Review of Systems Except as stated in HPI: all other systems reviewed are Neg General / Constitutional: No: Fever Cardiovascular: No: Chest Pain or Discomfort Respiratory: No: Shortness of Breath Gastrointestinal: Positive: Nausea, Abdominal Pain, Constipation, No: Vomiting , Diarrhea Genitourinary: No: Urgency, Frequency, Dysuria Musculoskeletal: No: Weakness Physical Exam Narrative GENERAL: Awake, alert, pleasant 36-year-old female who appears her stated age and is in no acute respiratory distress. SKIN: Focused skin assessment warm/dry. HEAD: Atraumatic. Normocephalic. EYES: Pupils equal and round. No scleral icterus. No injection or drainage. ENT: No nasal bleeding or discharge. Mucous membranes pink and moist. NECK: Trachea midline. No JVD. CARDIOVASCULAR: Regular rate and rhythm. No murmur appreciated. RESPIRATORY: No accessory muscle use. Clear to auscultation. Breath sounds equal bilaterally. GASTROINTESTINAL: Abdomen soft, tender palpation right lower quadrant and right upper quadrant. No rebound tenderness, guarding, or rigidity. No obvious distention. Back: No CVA tenderness. MUSCULOSKELETAL: No obvious deformities. No clubbing. No cyanosis. No edema. NEUROLOGICAL: Awake and alert. No obvious cranial nerve deficits. Motor grossly within normal limits. Normal speech. PSYCHIATRIC: Appropriate mood and affect; insight and judgment normal. Data Data Last Documented VS Vital Signs Date Time Temp Pulse Resp B/P Pulse Ox O2 Delivery O2 Flow Rate FiO2 02/21/17 13:49 91 16 160/83 99 Room Air 02/21/17 13:01 98.5 Orders Complete Blood Count With Diff (02/21/17 13:11) Comprehensive Metabolic Panel (02/21/17 13:11) Lipase (02/21/17 13:11) Lactic Acid (02/21/17 13:11) Urinalysis - C+S If Indicated (02/21/17 13:11) Ct Abd/Pel W Iv Contrast(Rout) (02/21/17 13:11) Iv Access Insert/Monitor (02/21/17 13:11) Ecg Monitoring (02/21/17 13:11) Oximetry (02/21/17 13:11) Morphine Inj (Morphine Inj) (02/21/17 13:15) Ondansetron Inj (Zofran Inj) (02/21/17 13:15) Sodium Chlor 0.9% 1000 Ml Inj (Ns 1000 M (02/21/17 13:11) Sodium Chloride 0.9% Flush (Ns Flush) (02/21/17 13:15) Oral Contrast - Adult (02/21/17 ) Diatrizoate Liq ( [place] Liq) (02/21/17 13:46) Urine Culture (02/21/17 13:10) Iohexol 350 Inj (Omnipaque 350 Inj) (02/21/17 15:13) Labs Laboratory Tests Test 02/21/17 02/21/17 13:10 13:30 Urine Collection Type CLEAN CATCH Urine Color YELLOW Urine Turbidity MARKED Urine pH 7.0 Urine Specific [place] 1.022 Urine Protein 30 mg/dL Urine Glucose (UA) NEG mg/dL Urine Ketones NEG mg/dL Urine Occult Blood TRACE Urine Nitrite NEG Urine Bilirubin NEG Urine Leukocyte Esterase SMALL Urine RBC 0-3 /hpf Urine WBC 15-19 /hpf Urine Squamous Epithelial > 8 /hpf Cells Urine Amorphous Sediment LARGE Urine Bacteria FEW /hpf Microscopic Urinalysis Comment CULTURE INDICATED Urine Collection Time 13:10 White Blood Count 7.4 TH/MM3 Red Blood Count 5.32 MIL/MM3 Hemoglobin 10.0 GM/DL Hematocrit 32.9 % Mean Corpuscular Volume 61.8 FL Mean Corpuscular Hemoglobin 18.8 PG Mean Corpuscular Hemoglobin 30.4 % Concent Red Cell Distribution Width 24.8 % Platelet Count 357 TH/MM3 Mean Platelet Volume 7.8 FL Neutrophils (%) (Auto) 70.3 % Lymphocytes (%) (Auto) 18.5 % Monocytes (%) (Auto) 9.1 % Eosinophils (%) (Auto) 1.6 % Basophils (%) (Auto) 0.5 % Neutrophils # (Auto) 5.2 TH/MM3 Lymphocytes # (Auto) 1.4 TH/MM3 Monocytes # (Auto) 0.7 TH/MM3 Eosinophils # (Auto) 0.1 TH/MM3 Basophils # (Auto) 0.0 TH/MM3 CBC Comment AUTO DIFF Differential Comment AUTO DIFF CONFIRMED Target Cells 1+ Ovalocytes 1+ Acanthocytes OCC Keratocytes OCC Sodium Level 143 MEQ/L Potassium Level 3.3 MEQ/L Chloride Level 108 MEQ/L Carbon Dioxide Level 22.0 MEQ/L Anion Gap 13 MEQ/L Blood Urea Nitrogen 6 MG/DL Creatinine 0.70 MG/DL Estimat Glomerular Filtration 95 ML/MIN Rate Random Glucose 105 MG/DL Lactic Acid Level 1.3 mmol/L Calcium Level 8.6 MG/DL Total Bilirubin 0.2 MG/DL Aspartate Amino Transf 24 U/L (AST/SGOT) Alanine Aminotransferase 43 U/L (ALT/SGPT) Alkaline Phosphatase 104 U/L Total Protein 7.3 GM/DL Albumin 3.4 GM/DL Lipase 310 U/L MDM Medical Decision Making Medical Screen Exam Complete: Yes Emergency Medical Condition: Yes Medical Record Reviewed: Yes Interpretation(s) Laboratory Tests Test 02/21/17 02/21/17 13:10 13:30 Urine Collection Type CLEAN CATCH Urine Color YELLOW Urine Turbidity MARKED Urine pH 7.0 Urine Specific [place] 1.022 Urine Protein 30 mg/dL Urine Glucose (UA) NEG mg/dL Urine Ketones NEG mg/dL Urine Occult Blood TRACE Urine Nitrite NEG Urine Bilirubin NEG Urine Leukocyte Esterase SMALL Urine RBC 0-3 /hpf Urine WBC 15-19 /hpf Urine Squamous Epithelial > 8 /hpf Cells Urine Amorphous Sediment LARGE Urine Bacteria FEW /hpf Microscopic Urinalysis Comment CULTURE INDICATED Urine Collection Time 13:10 White Blood Count 7.4 TH/MM3 Red Blood Count 5.32 MIL/MM3 Hemoglobin 10.0 GM/DL Hematocrit 32.9 % Mean Corpuscular Volume 61.8 FL Mean Corpuscular Hemoglobin 18.8 PG Mean Corpuscular Hemoglobin 30.4 % Concent Red Cell Distribution Width 24.8 % Platelet Count 357 TH/MM3 Mean Platelet Volume 7.8 FL Neutrophils (%) (Auto) 70.3 % Lymphocytes (%) (Auto) 18.5 % Monocytes (%) (Auto) 9.1 % Eosinophils (%) (Auto) 1.6 % Basophils (%) (Auto) 0.5 % Neutrophils # (Auto) 5.2 TH/MM3 Lymphocytes # (Auto) 1.4 TH/MM3 Monocytes # (Auto) 0.7 TH/MM3 Eosinophils # (Auto) 0.1 TH/MM3 Basophils # (Auto) 0.0 TH/MM3 CBC Comment AUTO DIFF Sodium Level 143 MEQ/L Potassium Level 3.3 MEQ/L Chloride Level 108 MEQ/L Carbon Dioxide Level 22.0 MEQ/L Anion Gap 13 MEQ/L Blood Urea Nitrogen 6 MG/DL Creatinine 0.70 MG/DL Estimat Glomerular Filtration 95 ML/MIN Rate Random Glucose 105 MG/DL Lactic Acid Level 1.3 mmol/L Calcium Level 8.6 MG/DL Total Bilirubin 0.2 MG/DL Aspartate Amino Transf 24 U/L (AST/SGOT) Alanine Aminotransferase 43 U/L (ALT/SGPT) Alkaline Phosphatase 104 U/L Total Protein 7.3 GM/DL Albumin 3.4 GM/DL Lipase 310 U/L CT of the abdomen and pelvis reveals a 3.1 cm right adnexal cyst with trace free fluid in the pelvis. No bowel obstruction or free air. Mild biliary ductal dilatation to 13 mm of the common bile duct. Postoperative gastric bypass surgery and small bowel surgery. Differential Diagnosis Differential diagnosis includes partial small bowel obstruction, colitis, appendicitis, pyelonephritis, nephrolithiasis, atypical cholecystitis, pancreatitis, dehydration. Narrative Course IV was established, labs are drawn and sent, and the patient was placed on cardiac telemetry monitoring and continuous pulse oximetry monitoring. The patient was administered morphine, Zofran, and IV fluids. UA was sent to lab. CT of the abdomen and pelvis with IV and oral contrast was ordered. UA does reveal WBCs, last UA also WBCs blood culture was negative. Laboratory evaluation is otherwise unremarkable. CT the abdomen and pelvis reveals a 3.1 cm right adnexal cyst with trace free fluid in the pelvis, pain may be secondary to ovarian cyst. No evidence of appendicitis. The patient was noted of mild biliary ductal dilatation to 13 mm the common bile duct, and the gallbladder is mildly distended, however, LFTs, lipase, white count normal. The patient was reevaluated at 3:40 PM, her pain was now 1/10. The patient be discharged home in an inflammatory's and pain medication. She is currently taking nitrofurantoin and has no UTI symptoms. Diagnosis Primary Impression: Abdominal pain Qualified Code: R10.31 - Right lower quadrant abdominal pain Additional Impression: Adnexal cyst Patient Instructions: General Instructions Additional Instructions: Medications as directed. Please provide the patient a copy of her CT results and lab results at discharge. Follow-up with her primary physician. Return if symptoms worsen or progress. Med/Other Pt SpecificInfo: Prescription(s) given Scripts Ibuprofen 600 Mg [id number] Mg PO Q6H PRN (Pain/Inflammation) #20 TAB Ref 0 Prov:Wild Urbina MD 02/21/17 Hydrocodone-Acetaminophen ([place])5-325 mg Tab1 Tab PO Q6H PRN (PAIN) #20 TAB Ref 0 Prov:Wild Urbina MD 02/21/17 Disposition: 01 DISCHARGE HOME Condition: Stable Wild Urbina MD Feb 21, 2017 13:20
[2017-02-21 13:41] LABS: AUTOMATED NEUTROPHIL # 5.2 TH/MM3 (1.8-7.7); BASOPHIL % 0.5 % (0.0-2.0); EOSINOPHIL # 0.1 TH/MM3 (0-0.4); EOSINOPHIL % 1.6 % (0.0-4.0); HEMATOCRIT 32.9 % (35.0-46.0); LYMPH % 18.5 % (9.0-44.0); LYMPHOCYTE # 1.4 TH/MM3 (1.0-4.8); MEAN CELL VOLUME 61.8 FL (80.0-100.0); MEAN CORPUSCULAR HEMOGLOBIN 18.8 PG (27.0-34.0); MEAN CORPUSCULAR HGB CONC 30.4 % (32.0-36.0); MONO % 9.1 % (0.0-8.0); NEUT % 70.3 % (16.0-70.0); PLATELET COUNT 357 TH/MM3 (150-450); RED BLOOD COUNT 5.32 MIL/MM3 (4.00-5.30); RED CELL DISTRIBUTION WIDTH 24.8 % (11.6-17.2); WHITE BLOOD COUNT 7.4 TH/MM3 (4.0-11.0)
[2017-02-21 13:42] LABS: BLOOD, URINE TRACE (NEG); GLUCOSE,URINE NEG (NEG); KETONE, URINE NEG (NEG); NITRITE,URINE NEG (NEG)
[2017-02-21 13:43] LABS: HEMO FLAGS AUTO DIFF
[2017-02-21 13:45] VITALS: RESP 16; O2SAT 99
[2017-02-21] MEDS ORDERED: DIATRIZOATE MEGLUM/DIATRIZOATE SOD 9 ML CUP ONE (13:46)
[2017-02-21 13:48] LABS: METHOD OF COLLECTION CLEAN CATCH; URINE COLOR YELLOW (YELLW/STRAW)
[2017-02-21 13:49] VITALS: BP 160/83; PULSE 91; RESP 16; O2SAT 99
[2017-02-21 13:49] LABS: RBC, URINE 0-3 /hpf (0-3); SQUAMOUS EPITHELIAL CELL URINE > 8 /hpf (0-5); WBC, URINE 15-19 /hpf (0-5)
[2017-02-21 13:50] LABS: BACTERIA, URINE FEW /hpf
[2017-02-21 13:52] LABS: CULTURE IF INDICATED CULTURE INDICATED
[2017-02-21 13:54] LABS: CHLORIDE 108 MEQ/L (98-107); POTASSIUM 3.3 MEQ/L (3.5-5.1); SODIUM (NA) 143 MEQ/L (136-145)
[2017-02-21 13:58] LABS: ANION GAP 13 MEQ/L (5-15)
[2017-02-21 13:59] LABS: BLOOD UREA NITROGEN 6 MG/DL (7-18)
[2017-02-21 14:01] LABS: ALT (GPT) 43 U/L (10-53); AST (GOT) 24 U/L (15-37); GLOMERULAR FILTRATION RATE 95 ML/MIN (>89)
[2017-02-21 14:03] LABS: TOTAL BILIRUBIN ADULT 0.2 MG/DL (0.2-1.0)
[2017-02-21 14:04] LABS: ALKALINE PHOSPHATASE 104 U/L (45-117)
[2017-02-21 14:30] LABS: COMMENT (UR) CULTURE INDICATED
[2017-02-21 14:43] LABS: ACANTHOCYTES OCC (NORMAL); KERATOCYTES OCC (NORMAL); OVALOCYTES 1+ (NORMAL); TARGET CELLS 1+ (NORMAL)
[2017-02-21 14:44] LABS: SCAN/DIFF AUTO DIFF CONFIRMED
[2017-02-21 14:45] VITALS: BP 171/96; PULSE 78; RESP 16; O2SAT 100
[2017-02-21] MEDS ORDERED: IOHEXOL 350 MG/ML 10 ML VIAL (for RAD DIAG) IV ONE (15:13)
--- NOTE | 2017-02-21 15:37 | RADHPO ---
EXAM DATE/TIME: 02/21/2017 15:02 [facility] COMPARISON: No previous studies available for comparison. INDICATIONS : Right lower quadrant pain. IV CONTRAST: 90 cc Omnipaque 350 (iohexol) IV ORAL CONTRAST: Partial prescribed oral contrast ingested. RADIATION DOSE: 5.74 CTDIvol (mGy) MEDICAL HISTORY : Hypertension. SURGICAL HISTORY : Gastric bypass. Tubal ligation.Small bowel obstruction surgery ENCOUNTER: Initial ACUITY: 1 day PAIN SCALE: 4/10 LOCATION: Right lower quadrant TECHNIQUE: Volumetric scanning of the abdomen and pelvis was performed. Using automated exposure control and ad justment of the mA and/or kV according to patient size, radiation dose was kept as low as reasonably achievable to obtain optimal diagnostic quality images. FINDINGS: Lung bases are clear. Postoperative gastric bypass surgery. No acute findings in the spleen, adrenals , kidneys or pancreas. The gallbladder is mildly distended and there is biliary ductal dilatation to about 13 mm. Cassia are noted in the small bowel on the right. Currently there is no obstruction. Trace free flui d in the pelvis. No free air. The appendix is not definitively visualized but no inflammatory changes are seen in the right lower quadrant. There is a 3.1 cm cyst in the right adnexal region. Trace free fluid in the pelvis. CONCLUSION: 1. 3.1 cm right adnexal cyst with trace free fluid in the pelvis. No bowel obstruction or free air. 2. Mild biliary ductal dilatation to 13 mm at the common bile duct. 3. Postoperative gastric bypass surgery and small bowel surgery. Yg Damico MD on February 21, 2017 at 15:22 Board Certified Radiologist. This report was verified electronically.
[2017-02-21] MEDS ORDERED: NORC5TAB PO (15:44)
[2017-02-21] MEDS ORDERED: IBUP-232 PO (15:44)
[2017-02-21 15:45] VITALS: BP 141/80; PULSE 80; RESP 16; O2SAT 99
[2017-02-25] MEDS ORDERED: LACT10SO PO (11:19)
[2017-03-11] MEDS ORDERED: LORA-474 PO (10:51)
[2017-03-11] MEDS ORDERED: CARA1SUS3 PO (10:59)
[2017-03-11] MEDS ORDERED: PROM25TA5 PO (10:59)
[2017-03-11] MEDS ORDERED: DEXA4TAB PO (10:59)
[2017-03-11] MEDS ORDERED: PERC10TA27 PO (10:59)
[2017-03-11] MEDS ORDERED: PROT40TA PO (10:59)
[2017-03-11] MEDS ORDERED: BACT800T5 PO (11:04)
[2017-03-11] MEDS ORDERED: MUPI2OIN TOPICAL (11:04)
[2017-03-25] MEDS ORDERED: VITA500C9 CHEW (11:31)
[2017-03-25] MEDS ORDERED: [UNRECOGNIZED DRUG - CODE] RECTAL (11:32)
[2017-04-14] MEDS ORDERED: CYAN1000P IM (12:05)
[2017-04-14] MEDS ORDERED: BUTA1CAP PO (12:18)
[2017-04-19] MEDS ORDERED: AUGM875T3 PO (10:47)
[2017-04-30] MEDS ORDERED: BUTA1CAP PO (16:10)
== END 2017-02-21 16:04 | disposition home or self-care (01) ==
LOC: PHED 12:57
DX: R10.31 Right lower quadrant pain (principal); R82.90 Unspecified abnormal findings in urine; R11.0 Nausea; I10 Essential (primary) hypertension; E11.9 Type 2 diabetes mellitus without complications; Z98.84 Bariatric surgery status
CPT/HCPCS: 74177; 80053; 81001; 83605; 83690; 85025; 87086; 96361; 96374; 96375; 99284; J2270; J2405; J7030; Q9963; Q9967

== ENCOUNTER 2017-03-14 21:34 | Inpatient (IN) | payer OTHER ==
[~2017-03-14] VITALS: Ht 157.5 cm; Wt 68.6 kg
[~2017-03-14 21:34] MED LIST changes: +BACT800T5 PO; +CARA1SUS3 PO; +DEXA4TAB PO; +LORA-474 PO; -MACR100C2 PO; +MUPI2OIN TOPICAL; +PERC10TA27 PO; +PROM25TA5 PO; +PROT40TA PO
[2017-03-14] MEDS ORDERED: SODIUM CHLOR 0.9% 1000 ML INJ 1,000 ML IV SCH (21:50)
[2017-03-14 21:56] VITALS: BP 176/86; PULSE 103; RESP 20; TEMP 98.7; O2SAT 100
--- NOTE | 2017-03-14 21:56 | PD ---
HPI Chief Complaint: Abdominal Pain Time Seen by Provider: 21:54 Travel History International Travel<30 days: No Contact w/Intl Traveler<30days: No History of Present Illness HPI 36-year-old female presents to the ED for evaluation of 3 week history of abdominal pain. Patient states pain was initially in the lower part of the abdomen but over the last week is localized to the epigastric and right upper quadrants. Quality is constant,crampy, worsened by eating. Accompanied by nausea, vomiting, and pale, watery diarrhea. Patient states "I can't keep anything down." She endorses chills, has not measured a fever at home. She states that she was evaluated at [facility] last week and CT showed "dilated gallbladder duct." She followed up with her PCP, Dr. Lazcano and states that she is in the process of arranging an appointment with Dr. Aiken, general surgery. The patient states that her PCP told her to come to the ED for worsening of symptoms. PFSH Past Medical History Hx Anticoagulant Therapy: No Arthritis: No Bipolar Disorder: Yes Depression: Yes Cancer: No Cardiovascular Problems: Yes (HTN) Cerebrovascular Accident: No Diabetes: Yes (BORDERLINE) Diminished Hearing: No Endocrine: No Gastrointestinal Disorders: No Genitourinary: No Headaches: Yes Hypertension: Yes Immune Disorder: No Implanted Vascular Access Dvce: No Musculoskeletal: Yes (SCOLIOSIS) Neurologic: Yes (MIGRAINES, HEADACHES) Psychiatric: Yes (BIPOLAR ) Reproductive: No Respiratory: No Immunizations Current: Yes Migraines: No Seizures: No : 6 Para: 5 Miscarriage: 1 Tubal Ligation: Yes (2011) Past Surgical History Abdominal Surgery: Yes (gastric bypass: 2008) Cardiac Surgery: No Section: Yes (X2) Ear Surgery: No Endocrine Surgery: No Eye Surgery: No Genitourinary Surgery: No Gynecologic Surgery: Yes (C SECTION, TUBAL LIGATION) Neurologic Surgery: No Oral Surgery: No Thoracic Surgery: No Other Surgery: Yes (GASTRIC BYPASS, TUMMY TUCK, BREAST LIFT) Social History Alcohol Use: Yes (OCC) Tobacco Use: No (NEVER) Substance Use: Yes (SNORTED METH 1 WEEK AGO) Allergies-Medications (Allergen,Severity, Reaction): Coded Allergies: No Known Allergies (Verified , 03/14/17) Reported Meds & Prescriptions Reported Meds & Active Scripts Active Mupirocin Topical (Mupirocin) 2 % Oint 1 Applic TOPICAL BID Bactrim DS (Sulfamethoxazole-Trimethoprim) 800-160 Mg Tab 1 Tab PO BID Carafate Liq (Sucralfate) 1 Gm/10 Ml Susp 1 Gm PO QID on empty stomach Percocet (Oxycodone-Acetaminophen) 10-325 mg Tab 1 Tab PO Q6H PRN Phenergan (Promethazine HCl) 25 Mg Tab 25 Mg PO Q6H PRN Dexamethasone 4 Mg Tab 4 Mg PO DAILY Protonix (Pantoprazole Sodium) 40 Mg Tab 40 Mg PO DAILY Ativan (Lorazepam) 1 Mg Tab 1 Mg PO Q8H PRN Fioricet (Dfeyviskvj-Jruuzasdgasdy-Swweoxdj) 50-300-40 Mg Cap 1-2 Cap PO Q6H PRN Norvasc (Amlodipine Besylate) 10 Mg Tab 10 Mg PO DAILY Iron (Ferrous Sulfate) 325 Mg Tab 325 Mg PO BIDPC Take after a meal. Reported Topamax (Topiramate) 50 Mg Tab 50 Mg PO BID Prozac (Fluoxetine HCl) 40 Mg Cap 40 Mg PO DAILY Geodon (Ziprasidone) 40 Mg Cap 40 Mg PO HS Review of Systems Except as stated in HPI: all other systems reviewed are Neg Physical Exam Narrative GENERAL: Well-nourished, well-developed white female in no acute distress. SKIN: Focused skin assessment warm/dry. HEAD: Normocephalic. EYES: No scleral icterus. No injection or drainage. NECK: Supple, trachea midline. No JVD or lymphadenopathy. CARDIOVASCULAR: Regular rate and rhythm without murmurs, gallops, or rubs. 2+ DP and radial pulses bilaterally. RESPIRATORY: Breath sounds clear and equal bilaterally. No accessory muscle use. GASTROINTESTINAL: Abdomen soft, nondistended, tender to palpation in the right upper quadrant and epigastric areas. No palpable masses. No hepatosplenomegaly. MUSCULOSKELETAL: No cyanosis, or edema. BACK: Nontender without obvious deformity. No CVA tenderness. Data Data Last Documented VS Vital Signs Date Time Temp Pulse Resp B/P Pulse Ox O2 Delivery O2 Flow Rate FiO2 03/14/17 21:59 20 03/14/17 21:59 99 Room Air 03/14/17 21:56 98.7 103 176/86 Orders Complete Blood Count With Diff (03/14/17 21:50) Comprehensive Metabolic Panel (03/14/17 21:50) Lipase (03/14/17 21:50) Lactic Acid (03/14/17 21:50) Urinalysis - C+S If Indicated (03/14/17 21:50) Iv Access Insert/Monitor (03/14/17 21:50) Ecg Monitoring (03/14/17 21:50) Oximetry (03/14/17 21:50) NPO (03/14/17 21:50) Morphine Inj (Morphine Inj) (03/14/17 22:00) Sodium Chlor 0.9% 1000 Ml Inj (Ns 1000 M (03/14/17 21:50) Sodium Chloride 0.9% Flush (Ns Flush) (03/14/17 22:00) Us Abdomen Gallbladder (03/14/17 ) Labs Laboratory Tests Test 03/14/17 03/14/17 22:00 22:30 White Blood Count 8.9 TH/MM3 Red Blood Count 4.00 MIL/MM3 Hemoglobin 8.0 GM/DL Hematocrit 26.1 % Mean Corpuscular Volume 65.3 FL Mean Corpuscular Hemoglobin 20.0 PG Mean Corpuscular Hemoglobin 30.7 % Concent Red Cell Distribution Width 27.1 % Platelet Count 267 TH/MM3 Mean Platelet Volume 8.5 FL Neutrophils (%) (Auto) 64.3 % Lymphocytes (%) (Auto) 23.5 % Monocytes (%) (Auto) 9.3 % Eosinophils (%) (Auto) 2.4 % Basophils (%) (Auto) 0.5 % Neutrophils # (Auto) 5.7 TH/MM3 Lymphocytes # (Auto) 2.1 TH/MM3 Monocytes # (Auto) 0.8 TH/MM3 Eosinophils # (Auto) 0.2 TH/MM3 Basophils # (Auto) 0.0 TH/MM3 CBC Comment AUTO DIFF Differential Comment AUTO DIFF CONFIRMED Platelet Estimate NORMAL Platelet Morphology Comment NORMAL Tear Drop Cells 1+ Ovalocytes 1+ Sodium Level 143 MEQ/L Potassium Level 3.8 MEQ/L Chloride Level 111 MEQ/L Carbon Dioxide Level 22.9 MEQ/L Anion Gap 9 MEQ/L Blood Urea Nitrogen 11 MG/DL Creatinine 0.65 MG/DL Estimat Glomerular Filtration 104 ML/MIN Rate Random Glucose 86 MG/DL Lactic Acid Level 1.4 mmol/L Calcium Level 7.5 MG/DL Total Bilirubin LESS THAN 0.1 MG/DL Aspartate Amino Transf 34 U/L (AST/SGOT) Alanine Aminotransferase 42 U/L (ALT/SGPT) Alkaline Phosphatase 87 U/L Total Protein 6.2 GM/DL Albumin 2.8 GM/DL Lipase 556 U/L Urine Color LIGHT-YELLOW Urine Turbidity CLEAR Urine pH 7.5 Urine Specific Gates 1.009 Urine Protein NEG mg/dL Urine Glucose (UA) NEG mg/dL Urine Ketones NEG mg/dL Urine Occult Blood NEG Urine Nitrite NEG Urine Bilirubin NEG Urine Urobilinogen LESS THAN 2.0 MG/DL Urine Leukocyte Esterase NEG Urine RBC LESS THAN 1 /hpf Urine WBC 1 /hpf Urine Squamous Epithelial 2 /hpf Cells Urine Mucus FEW /lpf Microscopic Urinalysis Comment CULT NOT INDICATED MDM Medical Decision Making Medical Screen Exam Complete: Yes Emergency Medical Condition: Yes Differential Diagnosis Cholecystitis versus pancreatitis versus small bowel obstruction versus gastroparesis versus gastritis versus other Narrative Course 36-year-old female presents to the ED via EMS for evaluation of 3 week history of abdominal pain. Patient states pain was initially in the lower part of the abdomen but over the last week is localized to the epigastric and right upper quadrants. Quality is constant,crampy, worsened by eating. Accompanied by nausea, vomiting, and pale, watery diarrhea. Patient states "I can't keep anything down." She endorses chills, has not measured a fever at home. She states that she was evaluated at [facility] last week and CT showed "dilated gallbladder duct." She followed up with her PCP, Dr. Lazcano and states that she is in the process of arranging an appointment with Dr. Aiken, general surgery. The patient states that her PCP told her to come to the ED for worsening of symptoms. She was administered Phenergan en route. Vitals reviewed. Physical exam reveals epigastric and right upper quadrant tenderness to palpation, otherwise unremarkable. Was established. Patient was placed on continuous monitoring. She was administered 4 mg morphine and 1 L of normal saline IV. CBC: WBC 8.9. Hemoglobin 8.0. LFTs: AST 34, ALT 42. Bilirubin < 0.1 Lactic 1.4. Lipase: 566 UA: No culture indicated. Ultrasound pending at this time. Dr. Walton will follow this patient. Please see her note for disposition. Zo Raman March 14, 2017 21:56
[2017-03-14 21:59] VITALS: O2SAT 99
[2017-03-14] MEDS ORDERED: SODIUM CHLORIDE 0.9% FLUSH 10 ML FLUSH IV FLUSH PRN (22:00)
[2017-03-14] MEDS ORDERED: MORPHINE SULFATE 4 MG/ML INJ IV PUSH ONE (22:00)
[2017-03-14 22:12] LABS: AUTOMATED NEUTROPHIL # 5.7 TH/MM3 (1.8-7.7); BASOPHIL % 0.5 % (0.0-2.0); EOSINOPHIL # 0.2 TH/MM3 (0-0.4); EOSINOPHIL % 2.4 % (0.0-4.0); HEMATOCRIT 26.1 % (35.0-46.0); HEMO FLAGS AUTO DIFF; LYMPH % 23.5 % (9.0-44.0); LYMPHOCYTE # 2.1 TH/MM3 (1.0-4.8); MEAN CELL VOLUME 65.3 FL (80.0-100.0); MEAN CORPUSCULAR HGB CONC 30.7 % (32.0-36.0); MONO % 9.3 % (0.0-8.0); NEUT % 64.3 % (16.0-70.0); PLATELET COUNT 267 TH/MM3 (150-450); RED CELL DISTRIBUTION WIDTH 27.1 % (11.6-17.2); WHITE BLOOD COUNT 8.9 TH/MM3 (4.0-11.0)
[2017-03-14 22:39] LABS: OVALOCYTES 1+ (NORMAL); PLATELET ESTIMATE SMEAR NORMAL (NORMAL); PLATELET MORPHOLOGY NORMAL (NORMAL); SCAN/DIFF AUTO DIFF CONFIRMED; TEARDROP RBCS 1+ (NORMAL)
[2017-03-14 22:46] LABS: ANION GAP 9 MEQ/L (5-15); AST (GOT) 34 U/L (15-37); BICARBONATE 22.9 MEQ/L (21.0-32.0); BLOOD UREA NITROGEN 11 MG/DL (7-18); CHLORIDE 111 MEQ/L (98-107); GLOMERULAR FILTRATION RATE 104 ML/MIN (>89); POTASSIUM 3.8 MEQ/L (3.5-5.1); SODIUM (NA) 143 MEQ/L (136-145)
[2017-03-14 22:49] LABS: BLOOD, URINE NEG (NEG); COMMENT (UR) CULT NOT INDICATED; CULTURE IF INDICATED CULT NOT INDICATED; GLUCOSE,URINE NEG (NEG); KETONE, URINE NEG (NEG); MUCUS URINE FEW /lpf (OCC); NITRITE,URINE NEG (NEG); PH, URINE 7.5 (5.0-8.5); SQUAMOUS EPITHELIAL CELL URINE 2 /hpf (0-5); URINE COLOR LIGHT-YELLOW (YELLW/STRAW)
[2017-03-14 22:49] LABS: ALKALINE PHOSPHATASE 87 U/L (45-117); ALT (GPT) 42 U/L (10-53); TOTAL BILIRUBIN ADULT LESS THAN 0.1 MG/DL (0.2-1.0)
[2017-03-14 23:15] VITALS: BP 168/80; PULSE 96; RESP 18; O2SAT 96
--- NOTE | 2017-03-14 23:48 | RADRPT ---
EXAM DATE/TIME: 03/14/2017 22:39 [facility] COMPARISON: CT ABDOMEN & PELVIS W CONTRAST, February 21, 2017, 15:02. INDICATIONS : Right upper quadrant pain, nausea and vomiting. MEDICAL HISTORY : Hypertension. Migraines. . Borderline diabetes. Scoliosis. Bipolar disorder. Depression. SURGICAL HISTORY : Tubal ligation. section. Gastric bypass. Tummy tuck. Breast lift. ENCOUNTER: Initial ACUITY: 1 month PAIN SCORE: 4/10 LOCATION: Right upper quadrant MEASUREMENTS: LIVER: 14.7 cm length COMMON DUCT: 7 mm RIGHT KIDNEY: 11.3 x 5.5 x 5.2 cm FINDINGS: LIVER: Normal echotexture without focal lesion or ductal dilatation. Hepatopedal flow within the portal vein . COMMON DUCT: No intraluminal mass or stone visualized. GALLBLADDER: Multiple calcified gallstones. The gallbladder is well-distended. The gallbladder wall is at the uppe r range of normal in terms of thickness measuring 3 mm. No pericholecystic fluid. PANCREAS: Totally obscured by bowel gas. RIGHT KIDNEY: No evidence of hydronephrosis, stone, or mass. CONCLUSION: 1. Multiple calcified gallstones without pericholecystic fluid or gallbladder wall thickening. Common bile duct is just out of range of normal. 2. Pancreas totally obscured by bowel gas. J Carlos Chang Jr., MD on March 14, 2017 at 23:43 Board Certified Radiologist. This report was verified electronically.
[2017-03-15] VITALS (7 sets, daily range): BP systolic 108–172; BP diastolic 44–94; PULSE 78–86; RESP 16–18; TEMP 96.2–98.3; O2SAT 95–97
[2017-03-15] MEDS ORDERED: MORPHINE SULFATE 4 MG/ML INJ IV PUSH ONE
--- NOTE | 2017-03-15 00:23 | RADRPT ---
EXAM DATE/TIME: 03/15/2017 00:06 [facility] COMPARISON: No previous studies available for comparison. INDICATIONS : Abdominal pain, nausea, vomiting, diarrhea. MEDICAL HISTORY : Hypertension. Diabetes mellitus type II. SURGICAL HISTORY : section. Tubal ligation. Gastric bypass. ENCOUNTER: Initial ACUITY: 1 week PAIN SCORE: 10/10 LOCATION: Umbilical FINDINGS: Supine views of the abdomen were performed. The abdominal bowel gas pattern is normal. No abnormal masses, calcifications, or organomegaly is seen. The osseous structures are unremarkable. CONCLUSION: Normal examination. J Carlos Chang Jr., MD on March 15, 2017 at 0:21 Board Certified Radiologist. This report was verified electronically.
--- NOTE | 2017-03-15 01:40 | HHI.HP ---
[facility] Service Family Medicine Primary Care Physician Conor Lazcano MD Admission Diagnosis Diagnoses: International Travel<30 Days: No Contact w/Intl Traveler<30days: No Known Affected Area: No History of Present Illness 36 year old female presents to the ED with complaints of epigastric and RUQ abdominal pain ongoing for one week. She states her pain started about one week ago in her periumbilical area and at that time it was a 10/10. She states the pain has been intermittent, sharp and severe in nature, sometimes radiating to her back mostly her right lower back, and seems to be worsened with meals. She also endorses intermittent fevers, chills, and night sweats at home over this past week. She endorses nausea, vomiting, and diarrhea over the past week. She states she has had about 6-7 episodes of diarrhea daily over this past week, and does states she had seen visible blood in her stool earlier in the week. Denies melena. She states she has vomited shortly after eating; color of emesis is the food she eats. Denies hematemesis or bilious emesis. She lives at home with her and four children who she states have all been healthy recently with no fevers, GI symptoms, or recent illnesses. She denies recent travel. She denies any urinary symptoms. She was seen here in the ED on 02/21/17 with complaints of abdominal pain x1 day and had an abdomen/pelvis CT at that time which noted mild biliary ductal dilatation to 13 mm at the common bile duct and mild distension of the gallbladder. At that time she had normal LFTs, normal lipase, normal bilirubin, no leukocytosis, and her pain has improved following morphine and she was discharged from the ED. She now states her pain started occurring one week ago and is currently a 10/10 and remains periumbilical and also mid-upper abdomen and RUQ pain. (Jayy Guillen MD R1) Review of Systems Constitutional: COMPLAINS OF: Fever, Chills, Night Sweats Respiratory: DENIES: Cough, Hemoptysis, Shortness of breath Cardiovascular: DENIES: Chest pain Gastrointestinal: COMPLAINS OF: Abdominal pain, Bloody stools, Diarrhea, Nausea , Vomiting, DENIES: Black stools, Constipation Genitourinary: DENIES: Urinary frequency, Hematuria, Dysuria Musculoskeletal: DENIES: Neck pain Integumentary: DENIES: Rash Neurologic: DENIES: Headache (Jayy Guillen MD R1) Past Family Social History Past Medical History Depression Alcohol-induced mood disorder Small bowel obstruction Seizures Iron deficiency anemia HTN Past Surgical History 1998 Tonsillectomy 1989 Tubal ligation 2011 Gastric bypass 2012 Mastopexy Abdominoplasty Laparoscopic lysis of adhesions November 2014 Reported Medications Reported Meds & Active Scripts Active Mupirocin Topical (Mupirocin) 2 % Oint 1 Applic TOPICAL BID Bactrim DS (Sulfamethoxazole-Trimethoprim) 800-160 Mg Tab 1 Tab PO BID Carafate Liq (Sucralfate) 1 Gm/10 Ml Susp 1 Gm PO QID on empty stomach Percocet (Oxycodone-Acetaminophen) 10-325 mg Tab 1 Tab PO Q6H PRN Phenergan (Promethazine HCl) 25 Mg Tab 25 Mg PO Q6H PRN Dexamethasone 4 Mg Tab 4 Mg PO DAILY Protonix (Pantoprazole Sodium) 40 Mg Tab 40 Mg PO DAILY Ativan (Lorazepam) 1 Mg Tab 1 Mg PO Q8H PRN Fioricet (Qbuynkdjnl-Vbtinnksovqby-Llctcoyk) 50-300-40 Mg Cap 1-2 Cap PO Q6H PRN Norvasc (Amlodipine Besylate) 10 Mg Tab 10 Mg PO DAILY Iron (Ferrous Sulfate) 325 Mg Tab 325 Mg PO BIDPC Take after a meal. Reported Topamax (Topiramate) 50 Mg Tab 50 Mg PO BID Prozac (Fluoxetine HCl) 40 Mg Cap 40 Mg PO DAILY Geodon (Ziprasidone) 40 Mg Cap 40 Mg PO HS (Jayy Guillen MD R1) Allergies: Coded Allergies: No Known Allergies (Verified , 03/14/17) Family History Mother age 48 from complications from unknown surgery Patient states she has a strong family history of gallbladder issues on her mothers side She has 2 siblings, one sister has anxiety and depression Social History Etoh: occasional use Tobacco: denies Illicit drug use: denied; however per ED note patient snorted meth one week ago No recent travel Lives with and four children (Jayy Guillen MD R1) Physical Exam Vital Signs Vital Signs Date Time Temp Pulse Resp B/P Pulse Ox O2 Delivery O2 Flow Rate FiO2 03/15/17 00:45 85 16 172/88 97 Room Air 03/14/17 23:15 96 18 168/80 96 Room Air 03/14/17 21:59 20 03/14/17 21:59 99 Room Air 03/14/17 21:56 98.7 103 20 176/86 100 Physical Exam GENERAL: NAD, lying comfortably in bed NEURO: AOx3. Normal speech. milk inspector grossly intact. SKIN: Warm and dry. ~1.5 x 1 cm erythematous area in the superior aspect of her intergluteal cleft, no drainage, slightly tender to palpation. HEAD: Normocephalic. Atraumatic. EYES: PERRL. EOMI. No scleral icterus. No injection or drainage. ENT: No nasal drainage. Moist mucous membranes. No oral ulcers or lesions. NECK: Supple, trachea midline. No JVD or lymphadenopathy. CARDIOVASCULAR: Regular rate and rhythm without murmurs, rubs, or gallops. Peripheral pulses 2+. Capillary refill < 2 seconds. RESPIRATORY: Breath sounds clear to auscultation and equal bilaterally, without wheezes, rales, or rhonchi. No accessory muscle use. GASTROINTESTINAL: Abdomen soft, mildly tender to palpation along mid-upper abdomen and RUQ, nontender in LUQ LLQ and RLQ, nondistended, normal BS. No organomegaly or masses. No rebound tenderness in any quadrant. No guarding. MUSCULOSKELETAL: No edema, cyanosis, or clubbing. Normal range of motion. BACK: Nontender without obvious deformity. Laboratory Laboratory Tests Test 03/14/17 03/14/17 22:00 22:30 White Blood Count 8.9 Red Blood Count 4.00 Hemoglobin 8.0 Hematocrit 26.1 Mean Corpuscular Volume 65.3 Mean Corpuscular Hemoglobin 20.0 Mean Corpuscular Hemoglobin 30.7 Concent Red Cell Distribution Width 27.1 Platelet Count 267 Mean Platelet Volume 8.5 Neutrophils (%) (Auto) 64.3 Lymphocytes (%) (Auto) 23.5 Monocytes (%) (Auto) 9.3 Eosinophils (%) (Auto) 2.4 Basophils (%) (Auto) 0.5 Neutrophils # (Auto) 5.7 Lymphocytes # (Auto) 2.1 Monocytes # (Auto) 0.8 Eosinophils # (Auto) 0.2 Basophils # (Auto) 0.0 CBC Comment AUTO DIFF Differential Comment AUTO DIFF CONFIRMED Platelet Estimate NORMAL Platelet Morphology Comment NORMAL Tear Drop Cells 1+ Ovalocytes 1+ Sodium Level 143 Potassium Level 3.8 Chloride Level 111 Carbon Dioxide Level 22.9 Anion Gap 9 Blood Urea Nitrogen 11 Creatinine 0.65 Estimat Glomerular Filtration 104 Rate Random Glucose 86 Lactic Acid Level 1.4 Calcium Level 7.5 Total Bilirubin LESS THAN 0.1 Aspartate Amino Transf 34 (AST/SGOT) Alanine Aminotransferase 42 (ALT/SGPT) Alkaline Phosphatase 87 Total Protein 6.2 Albumin 2.8 Lipase 556 Urine Color LIGHT-YELLOW Urine Turbidity CLEAR Urine pH 7.5 Urine Specific Robertson 1.009 Urine Protein NEG Urine Glucose (UA) NEG Urine Ketones NEG Urine Occult Blood NEG Urine Nitrite NEG Urine Bilirubin NEG Urine Urobilinogen LESS THAN 2.0 Urine Leukocyte Esterase NEG Urine RBC LESS THAN 1 Urine WBC 1 Urine Squamous Epithelial 2 Cells Urine Mucus FEW Microscopic Urinalysis Comment CULT NOT INDICATED (Jayy Guillen MD R1) Result Diagram: 03/14/17219903/14/172199 Septic Shock Reassessment Heart: Regular rate and rhythm Lungs: Clear Skin: Warm, Dry Peripheral Pulses: Bounding Right Radial Bounding Left Radial Bounding Right Dorsalis Pedis Bounding Left Dorsalis Pedis Bounding Right Posterior Tibial Bounding Left Posterior Tibial Capillary Refill: <2 seconds (Jayy Guillen MD R1) Assessment and Plan Assessment and Plan 36 year old female presents with complaints of epigastric and RUQ abdominal pain ongoing for one week associated with intermittent fevers, nausea, vomiting , and diarrhea. She will be admitted and managed for the following: Code Status Full code Discussed Condition With Dr. Delgado (Jayy Guillen MD R1) Attending Attestation Patient seen and examined. Case reviewed and discussed with the resident team. Agree with plan of care as discussed with me and documented in the resident note. pt seen on admission (Nita Iverson MD) Problem List: (1) RUQ abdominal pain Status: Acute Plan: - Patient presents with mid-upper and RUQ abdominal pain x1 week associated with fevers, nausea, and vomiting - Her abdominal exam is more benign than expected, abdomen is soft, mild TTP in mid-upper and RUQ, no guarding, no rebound tenderness - Patient is afebrile in the ED, without leukocytosis, LFTs are normal, however she does have a mildly elevated lipase to 556 - Lipase was nml at 310 at time of last presentation on 02/21/17 - RUQ US shows multiple calcified gallstones without pericholecystic fluid or gallbladder wall thickening; common bile duct measured at 7mm - KUB nml - Her presentation seems to most fit symptomatic cholelithiasis, however there is a concern for gallstone pancreatitis - Her common bile duct measuring 7mm stratifies patient as intermediate risk of having a common bile duct stone; will obtain an MRCP for further imaging - Consult general surgery - Pain control with IV morphine - Keep NPO (2) Hypertension Status: Chronic Plan: Likely elevated due to pain Continue to monitor vitals q4h Hold PO home medications at this time (3) Anemia Status: Chronic Plan: Hgb 8.0 on admission, microcytic Patient did endorse visible blood in her stool earlier in the week Obtain hemoccult Trend Hgb in the AM and consider further workup or GI consult if needed (4) Nutrition, metabolism, and development symptoms Status: Acute Plan: Fluids: NS at 98 cc/hr Electrolytes WNLs Diet: NPO except PO meds Protonix 40 mg IV daily for GI prophylaxis DVT prophylaxis: b/l SCDs Depression/Anxiety: continue home Prozac and Geodon Continue PO Topamax for seizures (Jayy Guillen MD R1) Physician Certification 2 Midnight Certification Type: Admission for Inpatient Services Order for Inpatient Services The services are ordered in accordance with Medicare regulations or non- Medicare payer requirements, as applicable. In the case of services not specified as inpatient-only, they are appropriately provided as inpatient services in accordance with the 2-midnight benchmark. Estimated LOS (days): 2 days is the estimated time the patient will need to remain in the hospital, assuming treatment plan goals are met and no additional complications. Post-Hospital Plan: Home (Jayy Guillen MD R1) Problem Qualifiers (1) Hypertension: Qualified Code: I10 - Essential hypertension (2) Anemia: Qualified Code: D64.9 - Anemia, unspecified type Jayy Guillen MD R1 March 15, 2017 01:40 Nita Iverson MD March 16, 2017 12:43
[2017-03-15] MEDS ORDERED: ACETAMINOPHEN 325 MG TAB PO PRN (02:30)
[2017-03-15] MEDS ORDERED: ONDANSETRON HCL 4 MG/2 ML VIAL IVP PRN (02:30)
[2017-03-15] MEDS ORDERED: NALOXONE HCL 0.4 MG/ML AMP IV PRN ×2 (02:30)
[2017-03-15] MEDS: SODIUM CHLORIDE 0.9% FLUSH 10 ML FLUSH IV FLUSH SCH ×3 (02:30→21:00)
[2017-03-15] MEDS ORDERED: SODIUM CHLORIDE 0.9% FLUSH 10 ML FLUSH IV FLUSH PRN ×2 (02:30→17:00)
--- NOTE | 2017-03-15 02:33 | PD ---
Data Data Last Documented VS Vital Signs Date Time Temp Pulse Resp B/P Pulse Ox O2 Delivery O2 Flow Rate FiO2 03/15/17 00:45 85 16 172/88 97 Room Air 03/14/17 21:56 98.7 Orders Complete Blood Count With Diff (03/14/17 21:50) Comprehensive Metabolic Panel (03/14/17 21:50) Lipase (03/14/17 21:50) Lactic Acid (03/14/17 21:50) Urinalysis - C+S If Indicated (03/14/17 21:50) Iv Access Insert/Monitor (03/14/17 21:50) Ecg Monitoring (03/14/17 21:50) Oximetry (03/14/17 21:50) NPO (03/14/17 21:50) Morphine Inj (Morphine Inj) (03/14/17 22:00) Sodium Chlor 0.9% 1000 Ml Inj (Ns 1000 M (03/14/17 21:50) Sodium Chloride 0.9% Flush (Ns Flush) (03/14/17 22:00) Us Abdomen Gallbladder (03/14/17 ) Abdomen, Kub Only (03/14/17 ) Morphine Inj (Morphine Inj) (03/15/17 00:00) Admit Order (Ed Use Only) (03/15/17 01:43) Labs Laboratory Tests Test 03/14/17 03/14/17 22:00 22:30 White Blood Count 8.9 TH/MM3 Red Blood Count 4.00 MIL/MM3 Hemoglobin 8.0 GM/DL Hematocrit 26.1 % Mean Corpuscular Volume 65.3 FL Mean Corpuscular Hemoglobin 20.0 PG Mean Corpuscular Hemoglobin 30.7 % Concent Red Cell Distribution Width 27.1 % Platelet Count 267 TH/MM3 Mean Platelet Volume 8.5 FL Neutrophils (%) (Auto) 64.3 % Lymphocytes (%) (Auto) 23.5 % Monocytes (%) (Auto) 9.3 % Eosinophils (%) (Auto) 2.4 % Basophils (%) (Auto) 0.5 % Neutrophils # (Auto) 5.7 TH/MM3 Lymphocytes # (Auto) 2.1 TH/MM3 Monocytes # (Auto) 0.8 TH/MM3 Eosinophils # (Auto) 0.2 TH/MM3 Basophils # (Auto) 0.0 TH/MM3 CBC Comment AUTO DIFF Differential Comment AUTO DIFF CONFIRMED Platelet Estimate NORMAL Platelet Morphology Comment NORMAL Tear Drop Cells 1+ Ovalocytes 1+ Sodium Level 143 MEQ/L Potassium Level 3.8 MEQ/L Chloride Level 111 MEQ/L Carbon Dioxide Level 22.9 MEQ/L Anion Gap 9 MEQ/L Blood Urea Nitrogen 11 MG/DL Creatinine 0.65 MG/DL Estimat Glomerular Filtration 104 ML/MIN Rate Random Glucose 86 MG/DL Lactic Acid Level 1.4 mmol/L Calcium Level 7.5 MG/DL Total Bilirubin LESS THAN 0.1 MG/DL Aspartate Amino Transf 34 U/L (AST/SGOT) Alanine Aminotransferase 42 U/L (ALT/SGPT) Alkaline Phosphatase 87 U/L Total Protein 6.2 GM/DL Albumin 2.8 GM/DL Lipase 556 U/L Urine Color LIGHT-YELLOW Urine Turbidity CLEAR Urine pH 7.5 Urine Specific [place] 1.009 Urine Protein NEG mg/dL Urine Glucose (UA) NEG mg/dL Urine Ketones NEG mg/dL Urine Occult Blood NEG Urine Nitrite NEG Urine Bilirubin NEG Urine Urobilinogen LESS THAN 2.0 MG/DL Urine Leukocyte Esterase NEG Urine RBC LESS THAN 1 /hpf Urine WBC 1 /hpf Urine Squamous Epithelial 2 /hpf Cells Urine Mucus FEW /lpf Microscopic Urinalysis Comment CULT NOT INDICATED MDM Supervised Visit with LACI: Yes Narrative Course The history, exam, and medical decision-making in the associated midlevel provider note were completed with my assistance. I reviewed and agree with the findings presented. I attest that I had a [id number] encounter with the patient on the same day, and personally performed and documented my assessment and findings in the medical record. *My assessment and Findings: This is a 36-year-old female who presents to the emergency department with epigastric and right upper quadrant abdominal pain. This is been going on for 1 week and this is her second visit to the emergency department with the symptoms. She is placed on a monitor and an IV was established. Right upper quadrant ultrasound demonstrates cholelithiasis. Patient has a lipase in the 500s. KUB is reassuring. I suspect the patient has symptomatic cholelithiasis. Given her lipase is trending upward, it's possible that the patient is developing early gallstone pancreatitis. I think it's reasonable to keep her in observation for pain control and to consult Gen. surgery for possible cholecystectomy.. Admitting Information Admitting Physician Requests: Observation Highet,Marci H. MD March 15, 2017 02:33
[2017-03-15] MEDS: SODIUM CHLOR 0.9% 1000 ML INJ 1,000 ML IV SCH ×2 (02:46→13:00)
[2017-03-15] MEDS: MORPHINE SULFATE 4 MG/ML INJ IV PRN ×3 (03:08→13:00)
[2017-03-15] MEDS ORDERED: MORPHINE SULFATE 4 MG/ML INJ IV PRN ×3 (04:30→20:00)
[2017-03-15 04:38] LABS: BETA HCG QUANT LESS THAN 1 MIU/ML (0-5)
[2017-03-15 07:13] LABS: AUTOMATED NEUTROPHIL # 4.3 TH/MM3 (1.8-7.7); BASOPHIL % 0.6 % (0.0-2.0); EOSINOPHIL # 0.2 TH/MM3 (0-0.4); EOSINOPHIL % 2.1 % (0.0-4.0); LYMPH % 32.8 % (9.0-44.0); LYMPHOCYTE # 2.5 TH/MM3 (1.0-4.8); MEAN CELL VOLUME 65.5 FL (80.0-100.0); MEAN CORPUSCULAR HEMOGLOBIN 20.8 PG (27.0-34.0); MEAN CORPUSCULAR HGB CONC 31.8 % (32.0-36.0); MONO % 8.5 % (0.0-8.0); PLATELET COUNT 262 TH/MM3 (150-450); RED BLOOD COUNT 3.97 MIL/MM3 (4.00-5.30); RED CELL DISTRIBUTION WIDTH 27.2 % (11.6-17.2); WHITE BLOOD COUNT 7.6 TH/MM3 (4.0-11.0)
[2017-03-15 07:15] LABS: ALT (GPT) 36 U/L (10-53); ANION GAP 6 MEQ/L (5-15); AST (GOT) 23 U/L (15-37); BICARBONATE 24.4 MEQ/L (21.0-32.0); BLOOD UREA NITROGEN 6 MG/DL (7-18); CHLORIDE 113 MEQ/L (98-107); GLOMERULAR FILTRATION RATE 151 ML/MIN (>89); POTASSIUM 3.7 MEQ/L (3.5-5.1); SODIUM (NA) 143 MEQ/L (136-145)
[2017-03-15 07:16] LABS: HEMO FLAGS AUTO DIFF
[2017-03-15 07:18] LABS: ALKALINE PHOSPHATASE 82 U/L (45-117); TOTAL BILIRUBIN ADULT 0.1 MG/DL (0.2-1.0)
[2017-03-15] MEDS ORDERED: ONDANSETRON HCL 4 MG/2 ML VIAL IV PUSH ONE (07:43)
[2017-03-15] MEDS ORDERED: NEOSTIGMINE 3 MG/3 ML SYR IV ONE (07:43)
[2017-03-15] MEDS ORDERED: PROPOFOL 200 MG/20 ML AMP IV ONE (07:43)
[2017-03-15 08:20] LABS: OVALOCYTES 1+ (NORMAL); SCAN/DIFF AUTO DIFF CONFIRMED
--- NOTE | 2017-03-15 08:38 | MB ---
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 The pain has been occurring for approximately a week, occurring in the epigastrium associated with nausea and vomiting. Pain radiates to the back. She was seen at [facility], thought to have gallstone a week ago and was told she would need to have a HIDA scan. The pain persisted. She presented to her family physician and as there was no improvement she followed up at [facility] for further evaluation. The patient states the pain continues. No change in bowel habits or chest pains or shortness of breath. PAST MEDICAL HISTORY Her past medical history is significant for: 1. Morbid obesity status post gastric bypass. 2. Iron deficiency anemia. 3. Hypertension. 4. Depression. PAST SURGICAL HISTORY Her surgical history is significant for: 1. Laparoscopic lysis of adhesions for bowel obstruction. 2. Abdominoplasty. 3. Tubal ligation. 4. Mastopexy. MEDICATIONS She is on medication at home that includes: 1. Norvasc. 2. Iron. 3. Protonix. 4. Phenergan. 5. Percocet. 6. Dexamethasone. ALLERGIES NO KNOWN DRUG ALLERGIES. SOCIAL HISTORY She denies tobacco use. She does drink alcohol occasionally. FAMILY HISTORY Noncontributory. PHYSICAL EXAMINATION GENERAL: On exam the patient is laying in bed, in no acute distress. HEENT: Her pupils are equal and reactive. Sclerae anicteric. NECK: Without JVD. RESPIRATIONS: Clear. CARDIOVASCULAR: Regular. GASTROINTESTINAL: Soft, positive tenderness in the epigastrium. MUSCULOSKELETAL: No deformities. NEUROLOGIC: Nonfocal. LABORATORY DATA Her hemoglobin is 8.3, lipase is 556, AST 34, ALT 42. IMAGING STUDIES Ultrasound reveals multiple gallstones with mildly dilated common bile duct. ASSESSMENT This is a patient status post Mary-en-Y gastric bypass, now with what looks like gallstone pancreatitis. The patient is scheduled to undergo MRCP. Will await results of that. If there is no stones within her duct, will plan for laparoscopic cholecystectomy. If there is stones within the duct, will get interventional radiology evaluation to evaluate for percutaneous removal prior to lap poornima. MD AHMET Manzano /7:39 AM 8:15 AM
--- NOTE | 2017-03-15 09:06 | RADRPT ---
EXAM DATE/TIME: 03/15/2017 08:22 [place] COMPARISON: No previous studies available for comparison. INDICATIONS : Abdominal pain. MEDICAL HISTORY : Hypertension. Seizures. SURGICAL HISTORY : section. Gastric bypass. Tonsillectomy. ENCOUNTER: Initial ACUITY: 2 day PAIN SCORE: 5/10 LOCATION: Abdomen TECHNIQUE: Multiplanar, multisequence magnetic resonance imaging of the abdomen was performed. High-resolution 3D dataset was utilized to reconstruct maximum-intensity projection (MIP) images. FINDINGS: There are large stones in a prominent gallbladder. The common duct is mildly dilated however I do no t see a common duct stone. Liver and spleen are free of focal defects. Kidneys are grossly unremarkable. CONCLUSION: 1. Multiple large gallstones with a prominent common duct. I cannot see a stone within the common d uct. 2. There is no intrahepatic biliary duct dilatation. Dustin Loja MD FACR on March 15, 2017 at 8:56 Board Certified Radiologist. This report was verified electronically.
[2017-03-15] MEDS: FLUoxetine HCL 20 MG CAP PO SCH (09:16)
[2017-03-15] MEDS: TOPIRAMATE 25 MG TAB PO SCH ×2 (09:16→21:00)
[2017-03-15] MEDS: PANTOPRAZOLE SODIUM 40 MG VIAL IV SCH (09:16)
[2017-03-15] MEDS: MUPIROCIN 2% OINT 22 GM TUBE TOPICAL SCH ×2 (10:31→21:00)
[2017-03-15] MEDS ORDERED: ePHEDrine/NS 25 MG/5 ML SYR IV ONE (12:00)
--- NOTE | 2017-03-15 13:01 | PD.CONS ---
HPI History of Present Illness This is a 36 year old female who came to the emergency room for evaluation of abdominal pain with associated nausea, vomiting, diarrhea, fever, and chills. She reports that her symptoms began suddenly about 1 week ago. She is somewhat her pain began it was around her umbilicus, but quickly migrated to her right upper quadrant and she describes this now as a constant dull ache in her right upper quadrant with intermittent shooting sharp pains that radiate to her back. She has associated nausea and vomiting with bilious material. She also reports that she was having diarrhea, although she reports that this has since resolved. She's had fever and chills at home and therefore came to the emergency room for further evaluation. She has never had this pain before. She has had multiple abdominal surgeries and does have a history of small bowel obstruction treated with exploratory lap fluoroscopy with lysis of adhesions about a year and a half ago. Of note she also has a history of gastric bypass surgery. Her lipase was mildly elevated. Her LFTs are normal. . Ultrasound of her gallbladder (03/14/17) revealed multiple calcified gallstones without pericholecystic fluid or gallbladder wall thickening. Common bile duct is just out of range of normal. Pancreas totally obscured by bowel gas. General surgery evaluated the patient and ordered an MRCP and GI evaluation. MRCP without contrast (03/15/17) revealed multiple large gallstones with a prominent common duct. I cannot see a stone within the common duct. There is no intrahepatic biliary duct dilatation. The patient reports that Dr. Rockwell was then this morning and the plan is for her to go for a laparoscopic cholecystectomy later today. (Kaleigh Torres) PFSH Past Medical History Iron deficiency anemia Hypertension Depression History of small bowel obstruction Past Surgical History Damir-en-Y gastric bypass Exploratory laparoscopy with lysis of adhesions Tonsillectomy Tubal ligation Abdominoplasty Mastopexy (Kaleigh Torres) Coded Allergies: No Known Allergies (Verified , 03/14/17) Medications Allergies Coded Allergies Type Severity Reaction Last Updated Verified No Known Allergies 03/14/17 Yes Active Scripts Medications Dose Route/Sig Days Date Category Dose Instructions Mupirocin Topical (Mupirocin) 2 % Oint 1 Applic TOPICAL BID 03/11/17 Rx Bactrim DS (Sulfamethoxazole-Trimethoprim) 800-160 Mg Tab 1 Tab PO BID 03/11/17 Rx Carafate Liq (Sucralfate) 1 Gm/10 Ml Susp 1 Gm PO QID 03/11/17 Rx on empty stomach Percocet (Oxycodone-Acetaminophen) 10-325 mg Tab 1 Tab PO Q6H PRN 03/11/17 Rx Phenergan (Promethazine HCl) 25 Mg Tab 25 Mg PO Q6H PRN 03/11/17 Rx Dexamethasone 4 Mg Tab 4 Mg PO DAILY 03/11/17 Rx Protonix (Pantoprazole Sodium) 40 Mg Tab 40 Mg PO DAILY 03/11/17 Rx Ativan (Lorazepam) 1 Mg Tab 1 Mg PO Q8H PRN 03/11/17 Rx Fioricet (Qwnwxljvoj-Bghrgmirwwahe-Phkddihv) 50-300-40 Mg Cap 1-2 Cap PO Q6H PRN 02/09/17 Rx Norvasc (Amlodipine Besylate) 10 Mg Tab 10 Mg PO DAILY 01/20/17 Rx Iron (Ferrous Sulfate) 325 Mg Tab 325 Mg PO BIDPC 01/20/17 Rx Take after a meal. Topamax (Topiramate) 50 Mg Tab 50 Mg PO BID 01/11/17 Reported Prozac (Fluoxetine HCl) 40 Mg Cap 40 Mg PO DAILY 01/11/17 Reported Geodon (Ziprasidone) 40 Mg Cap 40 Mg PO HS 01/11/17 Reported Family History Maternal grandfather had lung cancer Social History No tobacco use occasional alcohol (Kaleigh Torres) Review of Systems Constitutional: COMPLAINS OF: Fatigue, Fever, Chills Cardiovascular: DENIES: Chest pain Gastrointestinal: COMPLAINS OF: Abdominal pain, Constipation, Diarrhea, Nausea , Vomiting, Swelling of Abdomen, DENIES: Black stools, Bloody stools Musculoskeletal: COMPLAINS OF: Back pain Integumentary: DENIES: Rash, Jaundice Psychiatric: DENIES: Confusion (Kaleigh Torres) GI Exam Vitals I&O Vital Signs Date Time Temp Pulse Resp B/P Pulse Ox O2 Delivery O2 Flow Rate FiO2 03/15/17 12:07 98.3 78 17 158/86 96 03/15/17 08:03 98.0 78 18 155/91 96 03/15/17 03:59 86 16 154/94 97 03/15/17 03:08 99 16 161/44 100 03/15/17 00:45 85 16 172/88 97 Room Air 03/14/17 23:15 96 18 168/80 96 Room Air 03/14/17 21:59 20 03/14/17 21:59 99 Room Air 03/14/17 21:56 98.7 103 20 176/86 100 Imaging Last Impressions Gall Bladder Ultrasound 03/14/17 0000 Signed Impressions: Service Date/Time: Tuesday, March 14, 2017 22:39 - CONCLUSION: 1. Multiple calcified gallstones without pericholecystic fluid or gallbladder wall thickening. Common bile duct is just out of range of normal. 2. Pancreas totally obscured by bowel gas. J Carlos Chang Jr., MD Abdomen X-Ray 03/14/17 0000 Signed Impressions: Service Date/Time: Wednesday, March 15, 2017 00:06 - CONCLUSION: Normal examination. J Carlos Chang Jr., MD Laboratory Test 03/14/17 03/14/17 03/15/17 22:00 22:30 06:03 Lactic Acid Level 1.4 mmol/L White Blood Count 8.9 TH/MM3 7.6 TH/MM3 Red Blood Count 4.00 MIL/MM3 3.97 MIL/MM3 Hemoglobin 8.0 GM/DL 8.3 GM/DL Hematocrit 26.1 % 26.0 % Mean Corpuscular Volume 65.3 FL 65.5 FL Mean Corpuscular Hemoglobin 20.0 PG 20.8 PG Mean Corpuscular Hemoglobin 30.7 % 31.8 % Concent Red Cell Distribution Width 27.1 % 27.2 % Platelet Count 267 TH/MM3 262 TH/MM3 Mean Platelet Volume 8.5 FL 8.7 FL Neutrophils (%) (Auto) 64.3 % 56.0 % Lymphocytes (%) (Auto) 23.5 % 32.8 % Monocytes (%) (Auto) 9.3 % 8.5 % Eosinophils (%) (Auto) 2.4 % 2.1 % Basophils (%) (Auto) 0.5 % 0.6 % Neutrophils # (Auto) 5.7 TH/MM3 4.3 TH/MM3 Lymphocytes # (Auto) 2.1 TH/MM3 2.5 TH/MM3 Monocytes # (Auto) 0.8 TH/MM3 0.6 TH/MM3 Eosinophils # (Auto) 0.2 TH/MM3 0.2 TH/MM3 Basophils # (Auto) 0.0 TH/MM3 0.0 TH/MM3 CBC Comment AUTO DIFF AUTO DIFF Differential Comment AUTO DIFF AUTO DIFF CONFIRMED CONFIRMED Platelet Estimate NORMAL Platelet Morphology Comment NORMAL Tear Drop Cells 1+ Ovalocytes 1+ 1+ Sodium Level 143 MEQ/L 143 MEQ/L Potassium Level 3.8 MEQ/L 3.7 MEQ/L Chloride Level 111 MEQ/L 113 MEQ/L Carbon Dioxide Level 22.9 MEQ/L 24.4 MEQ/L Anion Gap 9 MEQ/L 6 MEQ/L Blood Urea Nitrogen 11 MG/DL 6 MG/DL Creatinine 0.65 MG/DL 0.47 MG/DL Estimat Glomerular Filtration 104 ML/MIN 151 ML/MIN Rate Random Glucose 86 MG/DL 83 MG/DL Calcium Level 7.5 MG/DL 8.0 MG/DL Total Bilirubin LESS THAN 0.1 0.1 MG/DL MG/DL Aspartate Amino Transf 34 U/L 23 U/L (AST/SGOT) Alanine Aminotransferase 42 U/L 36 U/L (ALT/SGPT) Alkaline Phosphatase 87 U/L 82 U/L Total Protein 6.2 GM/DL 5.7 GM/DL Albumin 2.8 GM/DL 2.8 GM/DL Lipase 556 U/L Human Chorionic Gonadotropin, LESS THAN 1 Quant MIU/ML Urine Color LIGHT-YELLOW Urine Turbidity CLEAR Urine pH 7.5 Urine Specific [place] 1.009 Urine Protein NEG mg/dL Urine Glucose (UA) NEG mg/dL Urine Ketones NEG mg/dL Urine Occult Blood NEG Urine Nitrite NEG Urine Bilirubin NEG Urine Urobilinogen LESS THAN 2.0 MG/DL Urine Leukocyte Esterase NEG Urine RBC LESS THAN 1 /hpf Urine WBC 1 /hpf Urine Squamous Epithelial 2 /hpf Cells Urine Mucus FEW /lpf Microscopic Urinalysis Comment CULT NOT INDICATED Physical Examination HEENT: Normocephalic; atraumatic; no jaundice. CHEST: CTA CARDIAC: RRR ABDOMEN: Soft, nondistended, moderate RUQ tenderness; no hepatosplenomegaly; bowel sounds are present in all four quadrants. EXTREMITIES: No clubbing, cyanosis, or edema. SKIN: Normal; no rash; no jaundice. SERVICE DESK LEAD: No focal deficits; alert and oriented times three. (Kaleigh Torres) Assessment and Plan Plan ASSESSMENT: - GS pancreatitis with abdominal pain, n/v. GB US (03/14/17) revealed multiple calcified gallstones without pericholecystic fluid or gallbladder wall thickening. Common bile duct is just out of range of normal. Pancreas totally obscured by bowel gas. MRCP without contrast (03/15/17) revealed multiple large gallstones with a prominent common duct. I cannot see a stone within the common duct. There is no intrahepatic biliary duct dilatation. GS following, plan is for lap. cholecystectomy today. LFTs stable. NPO. PPI. IVF - Anemia with hx of DOUG. Pt with hx of damir-en-y gastric bypass. - HTN per primary PLAN: - NPO - PPI - Monitor labs - Supportive care - GS following, plan for lap. cholecystectomy today - Pt seen and examined by Dr. Marie and myself and this note is written on her behalf (Kaleigh Torres) Physician Comments seen, examined agree with above (Alla Marie MD) Kaleigh Torres March 15, 2017 13:01 Alla Marie MD March 15, 2017 19:24
[2017-03-15] MEDS ORDERED: BUPIVACAINE/EPINEPHRINE 0.5% PF 30 ML VIAL ONE (15:05)
[2017-03-15] MEDS ORDERED: VANCOMYCIN HCL 1000 MG VIAL ONE (15:42)
[2017-03-15] MEDS ORDERED: ceFAZolin 2 GM PREMIX 50 ML ONE (15:43)
[2017-03-15] MEDS ORDERED: metroNIDAZOLE 500 MG INJ 100 ML IV ONE (15:45)
[2017-03-15] MEDS ORDERED: fentaNYL CITRATE 250 MCG/5 ML AMP ONE (15:48)
[2017-03-15 16:04] LABS: AMPHETAMINE, URINE NEG (NEG); BARBITURATES, URINE POS (NEG); COCAINE, URINE NEG (NEG)
[2017-03-15] MEDS ORDERED: Post-op Orders (for Pharmacy) MISC XX ONE (17:00)
[2017-03-15] MEDS ORDERED: ACETAMINOPHEN/HYDROcodone 325 MG/5 MG TAB PO PRN (17:00)
[2017-03-15] MEDS ORDERED: ONDANSETRON HCL 4 MG/2 ML VIAL IV PRN (17:00)
[2017-03-15] MEDS ORDERED: MAGNESIUM HYDROXIDE SUSP 30 ML CUP PO PRN (17:00)
[2017-03-15] MEDS ORDERED: *morphine SULFATE 8 MG/ML PERIprocedure ONLY ONE ×3 (17:29→17:49)
[2017-03-15] MEDS: D5-NS + KCL 20 MEQ INJ 1,000 ML IV SCH (17:44)
[2017-03-15] MEDS ORDERED: DO NOT ADM ANY ANTICOAGULANT DRUGS PRN ×2 (17:45)
[2017-03-15] MEDS ORDERED: ZIPRASIDONE HCL 40 MG CAP PO SCH (21:00)
[2017-03-15] MEDS: DOCUSATE SODIUM 100 MG CAP PO SCH (21:00)
[2017-03-15] MEDS ORDERED: SERO100T PO (21:03)
[2017-03-15] MEDS ORDERED: QUEtiapine FUMARATE 100 MG TAB PO SCH (21:15)
[2017-03-16] MEDS: metroNIDAZOLE 500 MG INJ 100 ML IV SCH ×2 (00:03→08:17)
[2017-03-16] MEDS: D5-NS + KCL 20 MEQ INJ 1,000 ML IV SCH ×2 (00:03→09:00)
[2017-03-16 03:35] VITALS: BP 113/57; PULSE 62; RESP 17; TEMP 96; O2SAT 97
[2017-03-16] MEDS: ACETAMINOPHEN/HYDROcodone 325 MG/5 MG TAB PO PRN ×4 (03:50→15:16)
[2017-03-16 07:20] LABS: AUTOMATED NEUTROPHIL # 6.6 TH/MM3 (1.8-7.7); BASOPHIL % 0.2 % (0.0-2.0); EOSINOPHIL % 0.2 % (0.0-4.0); HEMATOCRIT 25.7 % (35.0-46.0); LYMPH % 12.8 % (9.0-44.0); LYMPHOCYTE # 1.1 TH/MM3 (1.0-4.8); MEAN CELL VOLUME 65.5 FL (80.0-100.0); MEAN CORPUSCULAR HEMOGLOBIN 20.8 PG (27.0-34.0); MEAN CORPUSCULAR HGB CONC 31.7 % (32.0-36.0); NEUT % 77.8 % (16.0-70.0); PLATELET COUNT 256 TH/MM3 (150-450); RED BLOOD COUNT 3.92 MIL/MM3 (4.00-5.30); WHITE BLOOD COUNT 8.4 TH/MM3 (4.0-11.0)
[2017-03-16 07:24] LABS: HEMO FLAGS AUTO DIFF
[2017-03-16 07:27] LABS: APTT (PATIENT) 23.6 SEC (24.3-30.1); INTERNATIONAL NORMALIZED RATIO 1.1 RATIO; PROTHROMBIN TIME - PATIENT 11.8 SEC (9.8-11.6)
[2017-03-16 07:48] LABS: ALKALINE PHOSPHATASE 123 U/L (45-117); ALT (GPT) 76 U/L (10-53); ANION GAP 5 MEQ/L (5-15); AST (GOT) 81 U/L (15-37); BICARBONATE 26.9 MEQ/L (21.0-32.0); BLOOD UREA NITROGEN 4 MG/DL (7-18); CHLORIDE 111 MEQ/L (98-107); GLOMERULAR FILTRATION RATE 134 ML/MIN (>89); POTASSIUM 4.5 MEQ/L (3.5-5.1); SODIUM (NA) 143 MEQ/L (136-145); TOTAL BILIRUBIN ADULT 0.2 MG/DL (0.2-1.0)
[2017-03-16 08:00] VITALS: BP 112/63; PULSE 69; RESP 16; TEMP 97.6; O2SAT 100
[2017-03-16] MEDS: PANTOPRAZOLE SODIUM 40 MG VIAL IV SCH (08:16)
[2017-03-16] MEDS: DOCUSATE SODIUM 100 MG CAP PO SCH (08:17)
[2017-03-16] MEDS: FLUoxetine HCL 20 MG CAP PO SCH (08:17)
[2017-03-16] MEDS: TOPIRAMATE 25 MG TAB PO SCH (08:23)
[2017-03-16] MEDS: SODIUM CHLORIDE 0.9% FLUSH 10 ML FLUSH IV FLUSH SCH (08:28)
[2017-03-16] MEDS: MUPIROCIN 2% OINT 22 GM TUBE TOPICAL SCH (08:28)
[2017-03-16 09:14] LABS: ACANTHOCYTES OCC (NORMAL); KERATOCYTES OCC (NORMAL); OVALOCYTES 1+ (NORMAL)
[2017-03-16 09:15] LABS: SCAN/DIFF AUTO DIFF CONFIRMED
--- NOTE | 2017-03-16 10:29 | HHI.PR ---
Subjective Subjective Notes 36yo female POD#1 laparoscopic cholecystectomy. Sitting up in bed. In no acute distress. Tolerating liquid diet Objective Vitals/I&O Vital Signs, 24 Hour Date Time Temp Pulse Resp B/P Pulse Ox O2 Delivery O2 Flow Rate FiO2 03/16/17 08:00 97.6 69 16 112/63 100 03/16/17 03:35 96.0 62 17 113/57 97 03/15/17 23:28 96.2 78 17 108/55 95 03/15/17 20:00 97.7 84 17 143/78 96 03/15/17 19:52 Nasal Cannula 2.00 03/15/17 19:00 98.5 88 13 159/77 98 Nasal Cannula 2 03/15/17 18:00 76 14 143/74 98 Nasal Cannula 2 03/15/17 17:45 83 14 151/80 100 Nasal Cannula 2 03/15/17 17:30 70 14 150/83 100 Nasal Cannula 2 03/15/17 17:15 63 12 152/76 100 Nasal Cannula 2 03/15/17 17:08 98.5 69 13 176/80 100 Nasal Cannula 2 03/15/17 12:07 98.3 78 17 158/86 96 Allergies Coded Allergies No Known Allergies (Verified03/14/17) Intake/Outtake 03/16/17 03/16/17 11:00 23:00 Intake Total 1146 ml Balance 1146 ml Laboratory Tests per Kathia Test 03/16/17 05:49 White Blood Count 8.4 TH/MM3 Red Blood Count 3.92 MIL/MM3 Sodium Level 143 MEQ/L Potassium Level 4.5 MEQ/L Blood Urea Nitrogen 4 MG/DL Active Scripts Active Mupirocin Topical (Mupirocin) 2 % Oint 1 Applic TOPICAL BID Bactrim DS (Sulfamethoxazole-Trimethoprim) 800-160 Mg Tab 1 Tab PO BID Carafate Liq (Sucralfate) 1 Gm/10 Ml Susp 1 Gm PO QID on empty stomach Percocet (Oxycodone-Acetaminophen) 10-325 mg Tab 1 Tab PO Q6H PRN Phenergan (Promethazine HCl) 25 Mg Tab 25 Mg PO Q6H PRN Dexamethasone 4 Mg Tab 4 Mg PO DAILY Protonix (Pantoprazole Sodium) 40 Mg Tab 40 Mg PO DAILY Ativan (Lorazepam) 1 Mg Tab 1 Mg PO Q8H PRN Fioricet (Srcmhlradi-Epuaveyhpyunl-Twhiggty) 50-300-40 Mg Cap 1-2 Cap PO Q6H PRN Norvasc (Amlodipine Besylate) 10 Mg Tab 10 Mg PO DAILY Iron (Ferrous Sulfate) 325 Mg Tab 325 Mg PO BIDPC Take after a meal. Reported Seroquel (Quetiapine Fumarate) 100 Mg Tab 100 Mg PO HS Topamax (Topiramate) 50 Mg Tab 50 Mg PO BID Prozac (Fluoxetine HCl) 40 Mg Cap 40 Mg PO DAILY Geodon (Ziprasidone) 40 Mg Cap 40 Mg PO HS Vital Signs Date Time Temp Pulse Resp B/P Pulse Ox O2 Delivery O2 Flow Rate FiO2 03/16/17 08:00 97.6 69 16 112/63 100 03/15/17 19:52 Nasal Cannula 2.00 Labs Laboratory Tests Test 03/16/17 05:49 White Blood Count 8.4 Red Blood Count 3.92 Hemoglobin 8.2 Hematocrit 25.7 Mean Corpuscular Volume 65.5 Mean Corpuscular Hemoglobin 20.8 Mean Corpuscular Hemoglobin 31.7 Concent Red Cell Distribution Width 27.0 Platelet Count 256 Mean Platelet Volume 8.7 Neutrophils (%) (Auto) 77.8 Lymphocytes (%) (Auto) 12.8 Monocytes (%) (Auto) 9.0 Eosinophils (%) (Auto) 0.2 Basophils (%) (Auto) 0.2 Neutrophils # (Auto) 6.6 Lymphocytes # (Auto) 1.1 Monocytes # (Auto) 0.8 Eosinophils # (Auto) 0.0 Basophils # (Auto) 0.0 CBC Comment AUTO DIFF Differential Comment AUTO DIFF CONFIRMED Ovalocytes 1+ Acanthocytes OCC Keratocytes OCC Prothrombin Time 11.8 Prothromb Time International 1.1 Ratio Activated Partial 23.6 Thromboplast Time Sodium Level 143 Potassium Level 4.5 Chloride Level 111 Carbon Dioxide Level 26.9 Anion Gap 5 Blood Urea Nitrogen 4 Creatinine 0.52 Estimat Glomerular Filtration 134 Rate Random Glucose 112 Calcium Level 8.3 Total Bilirubin 0.2 Aspartate Amino Transf 81 (AST/SGOT) Alanine Aminotransferase 76 (ALT/SGPT) Alkaline Phosphatase 123 Total Protein 5.8 Albumin 2.6 Lipase 141 Radiology Last Impressions Cholangiopancreatography MRI 03/15/17 0000 Signed Impressions: Service Date/Time: Wednesday, March 15, 2017 08:22 - CONCLUSION: 1. Multiple large gallstones with a prominent common duct. I cannot see a stone within the common duct. 2. There is no intrahepatic biliary duct dilatation. Dustin Loja MD FACR Gall Bladder Ultrasound 03/14/17 0000 Signed Impressions: Service Date/Time: Tuesday, March 14, 2017 22:39 - CONCLUSION: 1. Multiple calcified gallstones without pericholecystic fluid or gallbladder wall thickening. Common bile duct is just out of range of normal. 2. Pancreas totally obscured by bowel gas. J Carlos Chang Jr., MD Abdomen X-Ray 03/14/17 0000 Signed Impressions: Service Date/Time: Wednesday, March 15, 2017 00:06 - CONCLUSION: Normal examination. J Carlos Chang Jr., MD Cardiovascular: Regular Lungs: Clear Abdomen: Post-op tenderness Extremities: Perfused Wound Wound : Wound Location: Abdomen Appearance: Clean & Dry A/P Assessment and Plan Continue to increase frequent ambulation Advance diet as tolerated Low fat diet for 1 month The exam, history, and the medical decision-making described in the above note were completed with the assistance of the mid-level provider. I reviewed and agree with the findings presented. I attest that I had a [id number] encounter with the patient on the same day, and personally performed and documented my assessment and findings in the medical record. Discharge Planning Ok for discharge from a surgical standpoint Follow up with Dr. Aiken 10-14 days Ying Spencer March 16, 2017 10:29 Geovanny Aiken MD March 24, 2017 09:28
--- NOTE | 2017-03-16 10:31 | HHI.HP ---
[facility] Service Family Medicine Primary Care Physician Conor Lazcano MD Admission Diagnosis Diagnoses: (1) RUQ abdominal pain Diagnosis: Principal (2) Hypertension Diagnosis: Principal (3) Anemia Diagnosis: Principal (4) Nutrition, metabolism, and development symptoms Diagnosis: Principal International Travel<30 Days: No Contact w/Intl Traveler<30days: No Known Affected Area: No History of Present Illness Ms Porras is a 36 year old female who presented to the ED with complaints of epigastric and RUQ abdominal pain ongoing for one week. She states her pain started about one week ago in her periumbilical area and at that time it was a 10/10. She states the pain has been intermittent, sharp and severe in nature, sometimes radiating to her back mostly her right lower back, and seems to be worsened with meals. She also endorses intermittent fevers, chills, and night sweats at home over this past week. She endorses nausea, vomiting, and diarrhea over the past week. She states she has had about 6-7 episodes of diarrhea daily over this past week, and does states she had seen visible blood in her stool earlier in the week. Denies melena. She states she has vomited shortly after eating; color of emesis is the food she eats. Denies hematemesis or bilious emesis. She lives at home with her and four children who she states have all been healthy recently with no fevers, GI symptoms, or recent illnesses. She denies recent travel. She denies any urinary symptoms. She was seen here in the ED on 02/21/17 with complaints of abdominal pain x1 day and had an abdomen/pelvis CT at that time which noted mild biliary ductal dilatation to 13 mm at the common bile duct and mild distension of the gallbladder. At that time she had normal LFTs, normal lipase, normal bilirubin, no leukocytosis, and her pain had improved following morphine and she was discharged from the ED. She now states her pain started occurring one week ago and was a 10/10 on admission and remained periumbilical and also mid-upper abdomen and RUQ pain. She was fortunate to have her cholecystectomy yesterday and feels much improved today. She is hungry and her pain is greatly diminished. Review of Systems Other Constitutional: COMPLAINS OF: Fever, Chills, Night Sweats Respiratory: DENIES: Cough, Hemoptysis, Shortness of breath Cardiovascular: DENIES: Chest pain Gastrointestinal: COMPLAINS OF: Abdominal pain, Bloody stools, Diarrhea, Nausea , Vomiting, DENIES: Black stools, Constipation Genitourinary: DENIES: Urinary frequency, Hematuria, Dysuria Musculoskeletal: DENIES: Neck pain Integumentary: DENIES: Rash Neurologic: DENIES: Headache Past Family Social History Past Medical History Depression Alcohol-induced mood disorder Small bowel obstruction Seizures Iron deficiency anemia HTN Past Surgical History x 3 total Tonsillectomy 1989 Tubal ligation 2011 Gastric bypass 2012 Mastopexy Abdominoplasty Laparoscopic lysis of adhesions November 2014 Allergies: Coded Allergies: No Known Allergies (Verified , 03/14/17) Family History Mother age 48 from complications from unknown surgery Patient states she has a strong family history of gallbladder issues on her mothers side She has 2 siblings, one sister has anxiety and depression Social History Etoh: occasional use Tobacco: denies Illicit drug use: denied; however per ED note patient snorted meth one week ago No recent travel Lives with and four children Physical Exam Vital Signs Vital Signs Date Time Temp Pulse Resp B/P Pulse Ox O2 Delivery O2 Flow Rate FiO2 03/16/17 08:00 97.6 69 16 112/63 100 03/16/17 03:35 96.0 62 17 113/57 97 03/15/17 23:28 96.2 78 17 108/55 95 03/15/17 20:00 97.7 84 17 143/78 96 03/15/17 19:52 Nasal Cannula 2.00 03/15/17 19:00 98.5 88 13 159/77 98 Nasal Cannula 2 03/15/17 18:00 76 14 143/74 98 Nasal Cannula 2 03/15/17 17:45 83 14 151/80 100 Nasal Cannula 2 03/15/17 17:30 70 14 150/83 100 Nasal Cannula 2 03/15/17 17:15 63 12 152/76 100 Nasal Cannula 2 03/15/17 17:08 98.5 69 13 176/80 100 Nasal Cannula 2 03/15/17 12:07 98.3 78 17 158/86 96 Physical Exam GENERAL: NAD, lying comfortably in bed NEURO: AOx3. Normal speech. 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 SKIN: Warm and dry. ~1.5 x 1 cm erythematous area in the superior aspect of her intergluteal cleft, no drainage, slightly tender to palpation. HEAD: Normocephalic. Atraumatic. EYES: PERRL. EOMI. No scleral icterus. No injection or drainage. ENT: No nasal drainage. Moist mucous membranes. No oral ulcers or lesions. NECK: Supple, trachea midline. No JVD or lymphadenopathy. CARDIOVASCULAR: Regular rate and rhythm without murmurs, rubs, or gallops. Peripheral pulses 2+. Capillary refill < 2 seconds. RESPIRATORY: Breath sounds clear to auscultation and equal bilaterally, without wheezes, rales, or rhonchi. No accessory muscle use. GASTROINTESTINAL: Abdomen soft, mildly tender to palpation along mid-upper abdomen and RUQ, nontender in LUQ LLQ and RLQ, nondistended, normal BS. No organomegaly or masses. No rebound tenderness in any quadrant. No guarding. MUSCULOSKELETAL: No edema, cyanosis, or clubbing. Normal range of motion. BACK: Nontender without obvious deformity. Laboratory Laboratory Tests Test 03/16/17 05:49 White Blood Count 8.4 Red Blood Count 3.92 Hemoglobin 8.2 Hematocrit 25.7 Mean Corpuscular Volume 65.5 Mean Corpuscular Hemoglobin 20.8 Mean Corpuscular Hemoglobin 31.7 Concent Red Cell Distribution Width 27.0 Platelet Count 256 Mean Platelet Volume 8.7 Neutrophils (%) (Auto) 77.8 Lymphocytes (%) (Auto) 12.8 Monocytes (%) (Auto) 9.0 Eosinophils (%) (Auto) 0.2 Basophils (%) (Auto) 0.2 Neutrophils # (Auto) 6.6 Lymphocytes # (Auto) 1.1 Monocytes # (Auto) 0.8 Eosinophils # (Auto) 0.0 Basophils # (Auto) 0.0 CBC Comment AUTO DIFF Differential Comment AUTO DIFF CONFIRMED Ovalocytes 1+ Acanthocytes OCC Keratocytes OCC Prothrombin Time 11.8 Prothromb Time International 1.1 Ratio Activated Partial 23.6 Thromboplast Time Sodium Level 143 Potassium Level 4.5 Chloride Level 111 Carbon Dioxide Level 26.9 Anion Gap 5 Blood Urea Nitrogen 4 Creatinine 0.52 Estimat Glomerular Filtration 134 Rate Random Glucose 112 Calcium Level 8.3 Total Bilirubin 0.2 Aspartate Amino Transf 81 (AST/SGOT) Alanine Aminotransferase 76 (ALT/SGPT) Alkaline Phosphatase 123 Total Protein 5.8 Albumin 2.6 Lipase 141 Result Diagram: 03/16/17 0549 03/16/17 0549 Assessment and Plan Assessment and Plan 36 year old female presented with complaints of epigastric and RUQ abdominal pain ongoing for one week associated with intermittent fevers, nausea, vomiting , and diarrhea. She was admitted and managed for the following: Anticipate D/C home as early as today if she continues to do well and can take po fluids and pain meds Problem List: (1) RUQ abdominal pain Status: Acute Plan: - Patient presented with mid-upper and RUQ abdominal pain x1 week associated with fevers, nausea, and vomiting - Her abdominal exam is more benign than expected, abdomen is soft, mild TTP in mid-upper and RUQ, no guarding, no rebound tenderness, much better today after surgery - Patient is afebrile in the ED, without leukocytosis, LFTs are normal, however she does have a mildly elevated lipase to 556 - Lipase was nml at 310 at time of last presentation on 02/21/17 - RUQ US shows multiple calcified gallstones without pericholecystic fluid or gallbladder wall thickening; common bile duct measured at 7mm - KUB nml - Her presentation seems to most fit symptomatic cholelithiasis, however there is a concern for gallstone pancreatitis - Her common bile duct measuring 7mm stratifies patient as intermediate risk of having a common bile duct stone; will obtain an MRCP for further imaging - Consulted general surgery, appreciate their help - Pain control with IV morphine - Keep NPO (2) Hypertension Status: Chronic Plan: Likely elevated due to pain Continue to monitor vitals q4h Hold PO home medications at this time (3) Anemia Status: Chronic Plan: Hgb 8.0 on admission, microcytic Patient did endorse visible blood in her stool earlier in the week Obtain hemoccult Trend Hgb in the AM and consider further workup or GI consult if needed (4) Nutrition, metabolism, and development symptoms Status: Acute Plan: Fluids: NS at 98 cc/hr, can heplock once taking po Electrolytes WNLs Diet: will likely advance diet today Protonix 40 mg IV daily for GI prophylaxis DVT prophylaxis: b/l SCDs Depression/Anxiety: continue home Prozac and Geodon Continue PO Topamax for seizures Physician Certification 2 Midnight Certification Type: Admission for Inpatient Services Order for Inpatient Services The services are ordered in accordance with Medicare regulations or non- Medicare payer requirements, as applicable. In the case of services not specified as inpatient-only, they are appropriately provided as inpatient services in accordance with the 2-midnight benchmark. Estimated LOS (days): 3 3 days is the estimated time the patient will need to remain in the hospital, assuming treatment plan goals are met and no additional complications. Post-Hospital Plan: Home Problem Qualifiers (1) Hypertension: Qualified Code: I10 - Essential hypertension (2) Anemia: Qualified Code: D64.9 - Anemia, unspecified type Nita Iverson MD March 16, 2017 10:31
[2017-03-16 12:00] VITALS: BP 131/77; PULSE 59; RESP 16; TEMP 97.7; O2SAT 100
[2017-03-16] MEDS ORDERED: NORC5TAB PO (14:12)
[2017-03-16] MEDS ORDERED: DOCU1CAP39 PO (14:13)
--- NOTE | 2017-03-16 14:17 | HHI.DCPOC ---
Discharge Care Plan Diagnosis: (1) Cholelithiasis (2) Status post cholecystectomy Goals to Promote Your Health * To prevent worsening of your condition and complications * To maintain your health at the optimal level Directions to Meet Your Goals Take your medications as prescribed Follow your dietary instruction Follow activity as directed Keep your appointments as scheduled Take your immunizations and boosters as scheduled If your symptoms worsen call your PCP, if no PCP go to Urgent Care Center or Emergency Room Smoking is Dangerous to Your Health. Avoid second hand smoke Call the 24-hour hour crisis hotline for domestic abuse at Arabella Moralez MD R1 March 16, 2017 14:17
[2017-03-16] MEDS ORDERED: ENOXAPARIN SODIUM 30 MG/0.3 ML SYRINGE SQ SCH (16:15)
--- NOTE | 2017-03-17 08:26 | MP ---
cc: GEOVANNY AIKEN DATE OF SURGERY: 03/15/2017 1980 PREOPERATIVE DIAGNOSIS Gallstone pancreatitis with cholelithiasis. POSTOPERATIVE DIAGNOSIS Gallstone pancreatitis with cholelithiasis. PROCEDURE Laparoscopic cholecystectomy. SURGEON Geovanny Aiken MD ANESTHESIA General endotracheal anesthesia. ESTIMATED BLOOD LOSS Scant. FINDINGS Distended gallbladder with stones. SPECIMEN Gallbladder with stones. COMPLICATIONS None. OPERATION The patient was brought to the operating room and placed on the operating table in a supine position. A bilateral sequential inflation device was placed on the lower extremities. General anesthesia was instituted, antibiotics initiated. The abdomen was prepped and draped sterilely. A point in the periumbilical region was anesthetized with 0.25% Marcaine with epinephrine. A skin incision was made. A 5 mm Optiview port was placed under direct vision, a pneumoperitoneum created. Under direct vision a 12 mm subxiphoid and two 5 mm right upper quadrant ports were placed. Prior to placement of all ports the skin and peritoneum were anesthetized with 0.25% Marcaine with epinephrine. The patient was placed in reverse Trendelenburg position, right side up. The gallbladder was retracted into the upper abdomen. The infundibulum was retracted. Calot's triangle was opened. The hepatoduodenal ligament was incised. The cystic artery was identified. It was circumferentially dissected with the Harmonic scalpel and then divided with the Harmonic scalpel. The cystic duct was identified, circumferentially dissected and divided with the Harmonic scalpel. The gallbladder was removed from the liver bed using the Harmonic scalpel. It was retrieved from the peritoneal cavity in an Endopouch through the 12 mm port site. The operative site was inspected. Hemostasis was present. There was no evidence of bile leak. CO2 was released. All ports were removed. All skin incisions were closed with 4-0 Monocryl. The abdominal wall was cleaned and a sterile dressing placed. The patient was awakened and taken to the recovery room. ADDENDUM The patient's abdominal cavity was inspected. She was noted to have a gastric bypass, antegastric, antecolic, no evidence of dilation of the small bowel proximally or distally. She had a small defect at her enteroenterostomy that was closed with 2-0 silk sutures. Gastric pouch appeared within normal limits as well. MD DANIEL Manzano/TESSA /6:30 PM /8:16 AM
[2017-03-25] MEDS ORDERED: VITA500C9 CHEW (11:31)
[2017-03-25] MEDS ORDERED: [UNRECOGNIZED DRUG - CODE] RECTAL (11:32)
[2017-04-14] MEDS ORDERED: CYAN1000P IM (12:05)
[2017-04-14] MEDS ORDERED: BUTA1CAP PO (12:18)
[2017-04-19] MEDS ORDERED: AUGM875T3 PO (10:47)
[2017-04-30] MEDS ORDERED: BUTA1CAP PO (16:10)
== END 2017-03-16 16:45 | disposition home or self-care (01) | DRG 418 ==
LOC: NEPC 21:34 → NEDA 03-15 01:43 → UNDOADMOB 03-15 01:44 → NEDA 03-15 01:44 → NEPHCDU 03-15 03:19 → NEDA 03-15 03:19 → OBSVTOIN 03-15 12:26 → INTOOBSV 03-15 16:59 → OBSVTOIN 03-15 16:59 → N07B 03-15 18:13 → NEPHCDU 03-15 18:13 → N07B 03-15 18:13 → N06A 03-15 19:51 → N07B 03-15 19:51 → N06A 03-15 19:51 → UNDODISOB 03-16 16:45
PROVIDERS: ADMIT Family Medicine; ATTEND Family Medicine
PROC: 0FT44ZZ Resection of Gallbladder, Percutaneous Endoscopic Approach (ICD-10-PCS; principal; 2017-03-15 15:38)
DX: K85.10 Biliary acute pancreatitis without necrosis or infection (principal); K80.10 Calculus of gallbladder with chronic cholecystitis without obstruction; M41.9 Scoliosis, unspecified; I10 Essential (primary) hypertension; K80.20 Calculus of gallbladder without cholecystitis without obstruction; D50.9 Iron deficiency anemia, unspecified; F31.9 Bipolar disorder, unspecified; F41.9 Anxiety disorder, unspecified; Z80.1 Family history of malignant neoplasm of trachea, bronchus and lung; Z81.8 Family history of other mental and behavioral disorders; Z98.84 Bariatric surgery status
CPT/HCPCS: 74000; 74181; 76377; 76705; 80053; 80307; 81001; 83605; 83690; 84702; 85025; 85610; 85730; 88304; 96361; 96374; 96376; C9113; J0690; J2270; J2405; J2710; J3010; J3370; J3480; J7030

== ENCOUNTER 2017-04-19 17:34 | Observation (INO) | payer OTHER ==
[2017-04-19] VITALS (7 sets, daily range): BP systolic 159–176; BP diastolic 87–105; PULSE 80–95; RESP 16–20; TEMP 98.5–99.1; O2SAT 97–100
[~2017-04-19] VITALS: Ht 157.5 cm; Wt 57.8 kg
[~2017-04-19 17:34] MED LIST changes: +AUGM875T3 PO; -BACT800T5 PO; -DEXA4TAB PO; -MUPI2OIN TOPICAL; -PERC10TA27 PO; -ROPI2 PO; +SERO100T PO; +VITA500C9 CHEW; +[UNRECOGNIZED DRUG - CODE] RECTAL
[2017-04-19] MEDS ORDERED: MORPHINE SULFATE 4 MG/ML INJ IV PUSH ONE ×2 (18:00→19:00)
[2017-04-19] MEDS ORDERED: ONDANSETRON HCL 4 MG/2 ML VIAL IVP ONE (18:00)
[2017-04-19] MEDS ORDERED: SODIUM CHLORIDE 0.9% FLUSH 10 ML FLUSH IV FLUSH PRN ×2 (18:00→20:45)
--- NOTE | 2017-04-19 18:06 | PD ---
HPI Chief Complaint: Abdominal Pain Time Seen by Provider: 17:49 Travel History International Travel<30 days: No Contact w/Intl Traveler<30days: No Traveled to known affect area: No History of Present Illness HPI 36yo F with PMH gallstone pancreatitis with cholelithiasis s/p laparoscopic cholecystectomy on 03/15/17 presents to the ED with c/o epigastric pain that radiates to right scapula. States it feels exactly like the last time she had pancreatitis. Pain is constant, dull. +Chills. +Nausea. Tactile fever. + Nonbloody diarrhea. Pt states she was called by her PMD and started on augmentin today for kidney infection after she gave him urine last . Denies any chest pain, sob, vomiting, dysuria, hematuria, vaginal bleeding or discharge, focal weakness or numbness. PFSH Past Medical History Hx Anticoagulant Therapy: No Arthritis: No Bipolar Disorder: Yes Depression: Yes Cancer: No Cardiovascular Problems: Yes (HTN) Cerebrovascular Accident: No Diabetes: Yes (BORDERLINE) Diminished Hearing: No Endocrine: No Gastrointestinal Disorders: No Genitourinary: No Headaches: Yes Hypertension: Yes Immune Disorder: No Implanted Vascular Access Dvce: No Musculoskeletal: Yes (SCOLIOSIS) Neurologic: Yes (MIGRAINES, HEADACHES) Psychiatric: Yes (BIPOLAR ) Reproductive: No Respiratory: No Immunizations Current: Yes Migraines: No Seizures: No ?: Not LMP: ABLASION : 6 Para: 5 Miscarriage: 1 Tubal Ligation: Yes (2011) Past Surgical History Abdominal Surgery: Yes (gastric bypass: 2009) Cardiac Surgery: No Section: Yes (X2) Ear Surgery: No Endocrine Surgery: No Eye Surgery: No Genitourinary Surgery: No Gynecologic Surgery: Yes (C SECTION, TUBAL LIGATION) Neurologic Surgery: No Oral Surgery: No Thoracic Surgery: No Other Surgery: Yes (GASTRIC BYPASS, TUMMY TUCK, BREAST LIFT) Social History Alcohol Use: Yes (OCC) Tobacco Use: No (NEVER) Substance Use: No Allergies-Medications (Allergen,Severity, Reaction): Coded Allergies: No Known Allergies (Verified , 04/19/17) Reported Meds & Prescriptions Reported Meds & Active Scripts Active Augmentin (Amoxicillin-Clavulanate) 875-125 Mg Tab 1 Tab PO BID Fioricet (Fhrycbxpla-Xyxzpnkplicyc-Szzrjlfu) 50-300-40 Mg Cap 1-2 Cap PO Q6H PRN Ativan (Lorazepam) 1 Mg Tab 1 Mg PO Q8H PRN Reported Ferrous Sulfate DR (Ferrous Sulfate) 324 Mg Tabdr 324 Mg PO BIDPC Seroquel (Quetiapine Fumarate) 100 Mg Tab 100 Mg PO HS Topamax (Topiramate) 50 Mg Tab 50 Mg PO BID Prozac (Fluoxetine HCl) 40 Mg Cap 20 Mg PO DAILY Geodon (Ziprasidone) 40 Mg Cap 80 Mg PO HS Review of Systems Except as stated in HPI: all other systems reviewed are Neg Physical Exam Narrative GENERAL: 36yo F in mild distress. SKIN: Focused skin assessment warm/dry. HEAD: Atraumatic. Normocephalic. EYES: Pupils equal and round. No scleral icterus. No injection or drainage. CARDIOVASCULAR: Regular rate and rhythm. No murmur appreciated. RESPIRATORY: No accessory muscle use. Clear to auscultation. Breath sounds equal bilaterally. GASTROINTESTINAL: Abdomen soft, +TTP epigastric, RUQ, and suprapubic region. No rebound tenderness or guarding. BACK: +TTP right scapula. No CVA tenderness. MUSCULOSKELETAL: No obvious deformities. No clubbing. No cyanosis. No edema. NEUROLOGICAL: Awake and alert. No obvious cranial nerve deficits. Motor grossly within normal limits. Normal speech. PSYCHIATRIC: Appropriate mood and affect; insight and judgment normal. Data Data Last Documented VS Vital Signs Date Time Temp Pulse Resp B/P Pulse Ox O2 Delivery O2 Flow Rate FiO2 04/19/17 20:30 90 16 167/87 98 Room Air 04/19/17 19:35 98.5 Orders Basic Metabolic Panel (Bmp) (04/19/17 18:00) Complete Blood Count With Diff (04/19/17 18:00) Lipase (04/19/17 18:00) Prothrombin Time / Inr (Pt) (04/19/17 18:00) Act Partial Throm Time (Ptt) (04/19/17 18:00) Urinalysis - C+S If Indicated (04/19/17 18:00) Iv Access Insert/Monitor (04/19/17 18:00) Ecg Monitoring (04/19/17 18:00) Oximetry (04/19/17 18:00) Morphine Inj (Morphine Inj) (04/19/17 18:00) Ondansetron Inj (Zofran Inj) (04/19/17 18:00) Sodium Chloride 0.9% Flush (Ns Flush) (04/19/17 18:00) Hepatic Functional Panel (04/19/17 18:00) Ed Urine Pregnancytest Poc (04/19/17 18:01) Ct Abd/Pel W Iv Contrast(Rout) (04/19/17 ) Morphine Inj (Morphine Inj) (04/19/17 19:00) Iohexol 350 Inj (Omnipaque 350 Inj) (04/19/17 19:34) Drug Screen, Random Urine (04/19/17 20:42) Tylenol (Acetaminophen) (04/19/17 20:43) Admit Order (Ed Use Only) (04/19/17 ) ^ Saline Lock (04/19/17 20:43) Resp Oxygen Ty C Titrat 1-4 L (04/19/17 ) Notify Dr: Other (04/19/17 20:43) Labs Laboratory Tests Test 04/19/17 04/19/17 18:05 18:15 Urine Color YELLOW Urine Turbidity HAZY Urine pH 6.5 Urine Specific [place] 1.020 Urine Protein NEG mg/dL Urine Glucose (UA) NEG mg/dL Urine Ketones NEG mg/dL Urine Occult Blood NEG Urine Nitrite NEG Urine Bilirubin NEG Urine Leukocyte Esterase TRACE Urine WBC 6-8 /hpf Urine Squamous Epithelial 0-5 /hpf Cells Urine Bacteria RARE /hpf Urine Mucus FEW /lpf Microscopic Urinalysis Comment CULT NOT INDICATED Urine Opiates Screen POS Urine Barbiturates Screen POS Urine Amphetamines Screen NEG Urine Benzodiazepines Screen NEG Urine Cocaine Screen NEG Urine Cannabinoids Screen NEG White Blood Count 10.4 TH/MM3 Red Blood Count 4.17 MIL/MM3 Hemoglobin 9.2 GM/DL Hematocrit 28.7 % Mean Corpuscular Volume 68.9 FL Mean Corpuscular Hemoglobin 22.2 PG Mean Corpuscular Hemoglobin 32.2 % Concent Red Cell Distribution Width 18.6 % Platelet Count 421 TH/MM3 Mean Platelet Volume 7.1 FL Neutrophils (%) (Auto) 79.0 % Lymphocytes (%) (Auto) 12.3 % Monocytes (%) (Auto) 7.6 % Eosinophils (%) (Auto) 0.8 % Basophils (%) (Auto) 0.3 % Neutrophils # (Auto) 8.2 TH/MM3 Lymphocytes # (Auto) 1.3 TH/MM3 Monocytes # (Auto) 0.8 TH/MM3 Eosinophils # (Auto) 0.1 TH/MM3 Basophils # (Auto) 0.0 TH/MM3 CBC Comment AUTO DIFF Differential Comment AUTO DIFF CONFIRMED Ovalocytes 1+ Prothrombin Time 11.5 SEC Prothromb Time International 1.0 RATIO Ratio Activated Partial 26.3 SEC Thromboplast Time Sodium Level 140 MEQ/L Potassium Level 3.6 MEQ/L Chloride Level 108 MEQ/L Carbon Dioxide Level 24.0 MEQ/L Anion Gap 8 MEQ/L Blood Urea Nitrogen 8 MG/DL Creatinine 0.63 MG/DL Estimat Glomerular Filtration 108 ML/MIN Rate Random Glucose 113 MG/DL Calcium Level 8.4 MG/DL Total Bilirubin 0.2 MG/DL Direct Bilirubin 0.1 MG/DL Indirect Bilirubin 0.1 MG/DL Aspartate Amino Transf 596 U/L (AST/SGOT) Alanine Aminotransferase 144 U/L (ALT/SGPT) Alkaline Phosphatase 258 U/L Total Protein 7.8 GM/DL Albumin 3.2 GM/DL Lipase 213 U/L Acetaminophen Level LESS THAN 2.0 MCG/ML MDM Medical Decision Making Medical Screen Exam Complete: Yes Emergency Medical Condition: Yes Differential Diagnosis Acute pancreatitis vs. choledocholithiasis vs. pyelonephritis vs. partial obstruction vs. hepatitis Narrative Course 36yo F with epigastric abdominal pain that radiates to RUQ and right upper back today. Pt given zofran and morphine 4mg which helped with pain and nausea. States she still have pain but better. Abdomen is needle loom tender in RUQ. Labs reviewed, no leukocytosis. H/H low but at baseline. Elevated AST/ALT, alk phos compare to last. Lipase normal. UA negative for leukocyte or nitrite. culture not indicated. Pt given another 4mg IV morphine. Sign out to next team to follow up with CTa/p and reevaluate for disposition. Diagnosis Primary Impression: Abdominal pain Qualified Code: R10.11 - Right upper quadrant abdominal pain Eunice Bailey DO Apr 19, 2017 18:06
[2017-04-19 18:26] LABS: BLOOD, URINE NEG (NEG); GLUCOSE,URINE NEG (NEG); KETONE, URINE NEG (NEG); NITRITE,URINE NEG (NEG); PH, URINE 6.5 (5.0-8.5)
[2017-04-19 18:30] LABS: AUTOMATED NEUTROPHIL # 8.2 TH/MM3 (1.8-7.7); BASOPHIL % 0.3 % (0.0-2.0); EOSINOPHIL # 0.1 TH/MM3 (0-0.4); EOSINOPHIL % 0.8 % (0.0-4.0); HEMATOCRIT 28.7 % (35.0-46.0); LYMPH % 12.3 % (9.0-44.0); LYMPHOCYTE # 1.3 TH/MM3 (1.0-4.8); MEAN CELL VOLUME 68.9 FL (80.0-100.0); MEAN CORPUSCULAR HEMOGLOBIN 22.2 PG (27.0-34.0); MEAN CORPUSCULAR HGB CONC 32.2 % (32.0-36.0); MONO % 7.6 % (0.0-8.0); PLATELET COUNT 421 TH/MM3 (150-450); RED BLOOD COUNT 4.17 MIL/MM3 (4.00-5.30); RED CELL DISTRIBUTION WIDTH 18.6 % (11.6-17.2); WHITE BLOOD COUNT 10.4 TH/MM3 (4.0-11.0)
[2017-04-19 18:31] LABS: URINE COLOR YELLOW (YELLW/STRAW)
[2017-04-19 18:33] LABS: BACTERIA, URINE RARE /hpf; COMMENT (UR) CULT NOT INDICATED; CULTURE IF INDICATED CULT NOT INDICATED; MUCUS URINE FEW /lpf (OCC); SQUAMOUS EPITHELIAL CELL URINE 0-5 /hpf (0-5)
[2017-04-19 18:39] LABS: HEMO FLAGS AUTO DIFF
[2017-04-19 18:42] LABS: POTASSIUM 3.6 MEQ/L (3.5-5.1)
[2017-04-19 18:47] LABS: APTT (PATIENT) 26.3 SEC (24.3-30.1); PROTHROMBIN TIME - PATIENT 11.5 SEC (9.8-11.6)
[2017-04-19 18:50] LABS: INDIRECT BILIRUBIN 0.1 MG/DL (0.0-0.8); TOTAL BILIRUBIN ADULT 0.2 MG/DL (0.2-1.0)
--- NOTE | 2017-04-19 19:12 | PD ---
Physical Exam Date Seen by Provider: Apr 19, 2017 Time Seen by Provider: 19:04 Narrative accepted in transfer of care from Dr Bailey Data Data Last Documented VS Vital Signs Date Time Temp Pulse Resp B/P Pulse Ox O2 Delivery O2 Flow Rate FiO2 04/19/17 19:35 98.5 04/19/17 19:35 16 04/19/17 19:00 98 Room Air 04/19/17 19:00 80 176/95 Orders Basic Metabolic Panel (Bmp) (04/19/17 18:00) Complete Blood Count With Diff (04/19/17 18:00) Lipase (04/19/17 18:00) Prothrombin Time / Inr (Pt) (04/19/17 18:00) Act Partial Throm Time (Ptt) (04/19/17 18:00) Urinalysis - C+S If Indicated (04/19/17 18:00) Iv Access Insert/Monitor (04/19/17 18:00) Ecg Monitoring (04/19/17 18:00) Oximetry (04/19/17 18:00) Morphine Inj (Morphine Inj) (04/19/17 18:00) Ondansetron Inj (Zofran Inj) (04/19/17 18:00) Sodium Chloride 0.9% Flush (Ns Flush) (04/19/17 18:00) Hepatic Functional Panel (04/19/17 18:00) Ed Urine Pregnancytest Poc (04/19/17 18:01) Ct Abd/Pel W Iv Contrast(Rout) (04/19/17 ) Morphine Inj (Morphine Inj) (04/19/17 19:00) Iohexol 350 Inj (Omnipaque 350 Inj) (04/19/17 19:34) Drug Screen, Random Urine (04/19/17 20:42) Tylenol (Acetaminophen) (04/19/17 20:43) Admit Order (Ed Use Only) (04/19/17 ) ^ Saline Lock (04/19/17 20:43) Resp Oxygen Ty C Titrat 1-4 L (04/19/17 ) Notify Dr: Other (04/19/17 20:43) Labs Laboratory Tests Test 04/19/17 04/19/17 18:05 18:15 Urine Color YELLOW Urine Turbidity HAZY Urine pH 6.5 Urine Specific [place] 1.020 Urine Protein NEG mg/dL Urine Glucose (UA) NEG mg/dL Urine Ketones NEG mg/dL Urine Occult Blood NEG Urine Nitrite NEG Urine Bilirubin NEG Urine Leukocyte Esterase TRACE Urine WBC 6-8 /hpf Urine Squamous Epithelial 0-5 /hpf Cells Urine Bacteria RARE /hpf Urine Mucus FEW /lpf Microscopic Urinalysis Comment CULT NOT INDICATED Urine Opiates Screen POS Urine Barbiturates Screen POS Urine Amphetamines Screen NEG Urine Benzodiazepines Screen NEG Urine Cocaine Screen NEG Urine Cannabinoids Screen NEG White Blood Count 10.4 TH/MM3 Red Blood Count 4.17 MIL/MM3 Hemoglobin 9.2 GM/DL Hematocrit 28.7 % Mean Corpuscular Volume 68.9 FL Mean Corpuscular Hemoglobin 22.2 PG Mean Corpuscular Hemoglobin 32.2 % Concent Red Cell Distribution Width 18.6 % Platelet Count 421 TH/MM3 Mean Platelet Volume 7.1 FL Neutrophils (%) (Auto) 79.0 % Lymphocytes (%) (Auto) 12.3 % Monocytes (%) (Auto) 7.6 % Eosinophils (%) (Auto) 0.8 % Basophils (%) (Auto) 0.3 % Neutrophils # (Auto) 8.2 TH/MM3 Lymphocytes # (Auto) 1.3 TH/MM3 Monocytes # (Auto) 0.8 TH/MM3 Eosinophils # (Auto) 0.1 TH/MM3 Basophils # (Auto) 0.0 TH/MM3 CBC Comment AUTO DIFF Differential Comment AUTO DIFF CONFIRMED Ovalocytes 1+ Prothrombin Time 11.5 SEC Prothromb Time International 1.0 RATIO Ratio Activated Partial 26.3 SEC Thromboplast Time Sodium Level 140 MEQ/L Potassium Level 3.6 MEQ/L Chloride Level 108 MEQ/L Carbon Dioxide Level 24.0 MEQ/L Anion Gap 8 MEQ/L Blood Urea Nitrogen 8 MG/DL Creatinine 0.63 MG/DL Estimat Glomerular Filtration 108 ML/MIN Rate Random Glucose 113 MG/DL Calcium Level 8.4 MG/DL Total Bilirubin 0.2 MG/DL Direct Bilirubin 0.1 MG/DL Indirect Bilirubin 0.1 MG/DL Aspartate Amino Transf 596 U/L (AST/SGOT) Alanine Aminotransferase 144 U/L (ALT/SGPT) Alkaline Phosphatase 258 U/L Total Protein 7.8 GM/DL Albumin 3.2 GM/DL Lipase 213 U/L [facility] Medical Record Reviewed: Yes Supervised Visit with LACI: No Interpretation(s) LFT's: elevated, ast: 596 , alt: 144, alk phos:258 Last Impressions Abdomen/Pelvis CT 04/19/17 0000 Signed Impressions: Service Date/Time: Wednesday, April 19, 2017 19:13 - CONCLUSION: 1. Interval cholecystectomy. Prominence of the common bile duct at about 13 mm unchanged. Etiology uncertain. I don't see a duct stone. Please correlate clinically and with any laboratory evidence of biliary obstruction. 2. Gastric bypass changes without evidence of an acute complication. 3. 2 cm left ovarian cyst. No free fluid in the pelvic cavity. Michael Harrison MD CBC & BMP Diagram 04/19/17 18:15 Differential Diagnosis accepted in transfer of care from Dr Bailey; please refer to her dictation Narrative Course accepted in transfer of care from Dr Bailey; follow up of pending CT and disposition CT imaging reveals no acute abnormality evidence of previous cholecystectomy, duct stone of 13 mm unchanged on re-exam abdomen soft nontender no guarding or rebound; patient still concerning for possible ductal obstruction also to consider inflammatory process. Patient comfortable at this time therefore will admit to medicine for observation and repeat LFTs GI consult possible MRCP evaluation for choledocholithiasis. Physician Communication Physician Communication discussed with Dr Phillips; discussed with GI Diagnosis Primary Impression: Abdominal pain Qualified Code: R10.11 - Right upper quadrant abdominal pain Additional Impression: Elevated LFTs Admitting Information Admitting Physician Requests: Observation Zoey Bowden MD Apr 19, 2017 19:12
[2017-04-19 19:25] LABS: OVALOCYTES 1+ (NORMAL)
[2017-04-19] MEDS ORDERED: FERR324T4 PO (19:25)
[2017-04-19 19:26] LABS: SCAN/DIFF AUTO DIFF CONFIRMED
[2017-04-19] MEDS ORDERED: IOHEXOL 350 MG/ML 10 ML VIAL (for RAD DIAG) IV ONE (19:34)
--- NOTE | 2017-04-19 19:56 | RADHPO ---
EXAM DATE/TIME: 04/19/2017 19:13 [place] COMPARISON: CT ABDOMEN & PELVIS W CONTRAST, February 21, 2017, 15:02. INDICATIONS : Right upper quadrant pain, nausea and vomiting. IV CONTRAST: 90 cc Omnipaque 350 (iohexol) IV ORAL CONTRAST: No oral contrast ingested. RADIATION DOSE: 5.97 CTDIvol (mGy) MEDICAL HISTORY : Hypertension. Diabetes. SURGICAL HISTORY : Tubal ligation. Gastric bypass. Cholecystectomy. section. ENCOUNTER: Initial ACUITY: 1 day PAIN SCALE: 10/10 LOCATION: Right upper quadrant TECHNIQUE: Volumetric scanning of the abdomen and pelvis was performed. Using automated exposure control and ad justment of the mA and/or kV according to patient size, radiation dose was kept as low as reasonably achievable to obtain optimal diagnostic quality images. FINDINGS: Internal cholecystectomy since the prior CT. Prominence of the common bile duct is unchanged. Patient has had gastric bypass without evidence of an acute complication. Liver, spleen, pancreas, adrenal glands and kidneys are all normal. No obstruction or acute inflammatory changes are seen of the gastrointestinal tract. Previously seen right ovarian cyst has resolved. However, there is a 2 cm new rim-enhancing cyst left ovary. CONCLUSION: 1. Interval cholecystectomy. Prominence of the common bile duct at about 13 mm unchanged. Etiology un certain. I don't see a duct stone. Please correlate clinically and with any laboratory evidence of bi liary obstruction. 2. Gastric bypass changes without evidence of an acute complication. 3. 2 cm left ovarian cyst. No free fluid in the pelvic cavity. Michael Harrison MD on April 19, 2017 at 19:52 Board Certified Radiologist. This report was verified electronically.
[2017-04-19] MEDS ORDERED: SODIUM CHLORIDE 0.9% FLUSH 10 ML FLUSH IVF PRN (20:45)
[2017-04-19] MEDS ORDERED: NALOXONE HCL 0.4 MG/ML AMP IV PRN (20:45)
[2017-04-19 20:57] LABS: AMPHETAMINE, URINE NEG (NEG); COCAINE, URINE NEG (NEG)
[2017-04-19] MEDS ORDERED: SODIUM CHLORIDE 0.9% FLUSH 10 ML FLUSH IV FLUSH SCH (21:00)
[2017-04-19 21:05] LABS: BARBITURATES, URINE POS (NEG)
[2017-04-19] MEDS ORDERED: HYDROmorphone HCL PF 1 MG/ML VIAL IV PUSH ONE (21:15)
[2017-04-19] MEDS: SODIUM CHLORIDE 0.9% FLUSH 10 ML FLUSH IV FLUSH SCH (21:23)
[2017-04-20] MEDS: ZIPRASIDONE HCL 40 MG CAP PO SCH ×2 (00:22→21:02)
[2017-04-20] MEDS: HYDROmorphone HCL PF 1 MG/ML VIAL IV PUSH PRN ×5 (00:22→21:02)
[2017-04-20] MEDS: QUEtiapine FUMARATE 100 MG TAB PO SCH ×2 (00:30→21:02)
[2017-04-20 04:00] VITALS: BP 137/83; PULSE 73; RESP 18; TEMP 96.4; O2SAT 97
[2017-04-20 07:31] VITALS: BP 146/90; PULSE 73; RESP 18; TEMP 98.5; O2SAT 99
[2017-04-20 08:00] VITALS: O2SAT 96
[2017-04-20] MEDS: SODIUM CHLORIDE 0.9% FLUSH 10 ML FLUSH IV FLUSH SCH ×2 (08:04→21:02)
[2017-04-20 08:09] LABS: AUTOMATED NEUTROPHIL # 8.3 TH/MM3 (1.8-7.7); BASOPHIL % 0.4 % (0.0-2.0); EOSINOPHIL # 0.2 TH/MM3 (0-0.4); EOSINOPHIL % 2.3 % (0.0-4.0); HEMATOCRIT 30.4 % (35.0-46.0); LYMPH % 10.4 % (9.0-44.0); MEAN CELL VOLUME 69.8 FL (80.0-100.0); MEAN CORPUSCULAR HEMOGLOBIN 21.5 PG (27.0-34.0); MEAN CORPUSCULAR HGB CONC 30.8 % (32.0-36.0); MONO % 5.7 % (0.0-8.0); NEUT % 81.2 % (16.0-70.0); PLATELET COUNT 447 TH/MM3 (150-450); RED BLOOD COUNT 4.36 MIL/MM3 (4.00-5.30); WHITE BLOOD COUNT 10.1 TH/MM3 (4.0-11.0)
[2017-04-20 08:11] LABS: HEMO FLAGS AUTO DIFF
[2017-04-20 08:26] LABS: CHLORIDE 107 MEQ/L (98-107); POTASSIUM 3.9 MEQ/L (3.5-5.1); SODIUM (NA) 141 MEQ/L (136-145)
[2017-04-20 08:30] LABS: ANION GAP 9 MEQ/L (5-15); BICARBONATE 24.9 MEQ/L (21.0-32.0); BLOOD UREA NITROGEN 5 MG/DL (7-18)
[2017-04-20 08:33] LABS: ALT (GPT) 204 U/L (10-53); AST (GOT) 329 U/L (15-37); GLOMERULAR FILTRATION RATE 140 ML/MIN (>89)
[2017-04-20 08:34] LABS: OVALOCYTES 1+ (NORMAL); SCAN/DIFF AUTO DIFF CONFIRMED; TARGET CELLS 1+ (NORMAL); TOTAL BILIRUBIN ADULT 0.2 MG/DL (0.2-1.0)
[2017-04-20 08:36] LABS: ALKALINE PHOSPHATASE 357 U/L (45-117)
[2017-04-20] MEDS ORDERED: PNEUMOCOCCAL POLYVALENT INJ 25 MCG/0.5 ML SYR IM ONE (10:00)
--- NOTE | 2017-04-20 11:33 | HHI.HP ---
[facility] Service [facility] Hospitalists Primary Care Physician Conor Lazcano MD Admission Diagnosis abdominal pain; elevated LFT's Diagnoses: Travel History International Travel<30 Days: No Contact w/Intl Traveler <30 Da: No Traveled to Known Affected Are: No History of Present Illness 36-year-old female with history of gallstone pancreatitis, status post laparoscopic cholecystectomy on 03/15 at [facility] by Dr. Kam, presents with a one-day history of constant dull right upper quadrant pain radiating to right shoulder without any exacerbating or relieving factors. She also reports a one-day history of intermittent nausea with nonbloody emesis. She reports fevers measured up to 103 at home over the past day. She was recently started on Augmentin for a UTI, however denies any dysuria. Endorses fatigue over the past day. Denies any chest pain. Review of Systems Performed and negative except for history of present illness and past medical history. Past Family Social History Past Medical History Acute migraine headaches History of bipolar disorder Depression Alcohol-induced mood disorder Small bowel obstruction Seizures Iron deficiency anemia Hypertension Past Surgical History 3 Tonsillectomy Tubal ligation in 2011 Gastric bypass in 2012 Breasts left Abdominoplasty Laparoscopic lysis of adhesions in 2014 Laparoscopic cholecystectomy 03/15/2017 Reported Medications Reported Meds & Active Scripts Active Augmentin (Amoxicillin-Clavulanate) 875-125 Mg Tab 1 Tab PO BID Fioricet (Jdjuyspwyg-Qiknlysbrpudy-Amnopuzg) 50-300-40 Mg Cap 1-2 Cap PO Q6H PRN Ativan (Lorazepam) 1 Mg Tab 1 Mg PO Q8H PRN Iron (Ferrous Sulfate) 325 Mg Tab 325 Mg PO BIDPC Take after a meal. Reported Seroquel (Quetiapine Fumarate) 100 Mg Tab 100 Mg PO HS Topamax (Topiramate) 50 Mg Tab 50 Mg PO BID Prozac (Fluoxetine HCl) 40 Mg Cap 20 Mg PO DAILY Geodon (Ziprasidone) 40 Mg Cap 80 Mg PO HS Allergies: Coded Allergies: No Known Allergies (Verified , 04/19/17) Family History Mother at age 48 from complications of cholecystectomy Father is estranged. 2 sisters, one with anxiety and depression. Social History Nonsmoker. Drinks occasionally, on average once per month. Denies any illicit drugs. Lives with and children. Physical Exam Vital Signs Vital Signs Date Time Temp Pulse Resp B/P Pulse Ox O2 Delivery O2 Flow Rate FiO2 04/20/17 08:52 18 04/20/17 07:31 98.5 73 18 146/90 99 04/20/17 04:00 96.4 73 18 137/83 97 04/19/17 22:30 98 21 04/19/17 22:27 98.7 85 20 170/105 98 04/19/17 21:46 16 04/19/17 21:35 98.5 86 16 159/91 97 Room Air 04/19/17 20:30 90 16 167/87 98 Room Air 04/19/17 19:35 98.5 04/19/17 19:35 16 04/19/17 19:29 16 04/19/17 19:00 16 98 Room Air 04/19/17 19:00 80 16 176/95 98 Room Air 04/19/17 19:00 16 04/19/17 18:21 18 04/19/17 17:41 99.1 95 16 159/99 100 Physical Exam GENERAL: This is a well-nourished, well-developed patient, appears in pain. Alert and oriented 3. SKIN: No rashes, ecchymoses or lesions. Cool and dry. HEAD: Atraumatic. Normocephalic. No temporal or scalp tenderness. EYES: Pupils equal round and reactive. Extraocular motions intact. No scleral icterus. No injection or drainage. ENT: Nose without bleeding, purulent drainage or septal hematoma. Throat without erythema, tonsillar hypertrophy or exudate. Uvula midline. Airway patent. NECK: Trachea midline. No JVD or lymphadenopathy. Supple, nontender, no meningeal signs. CARDIOVASCULAR: Regular rate and rhythm without murmurs, gallops, or rubs. RESPIRATORY: Clear to auscultation. Breath sounds equal bilaterally. No wheezes , rales, or rhonchi. GASTROINTESTINAL: Abdomen soft, nondistended. Tenderness to palpation in right upper quadrant. No rebound or guarding. Positive bowel sounds. MUSCULOSKELETAL: Extremities without clubbing, cyanosis, or edema. No joint tenderness, effusion, or edema noted. No calf tenderness. Negative Homans sign bilaterally. NEUROLOGICAL: Awake and alert. Cranial nerves II through XII intact. Motor and sensory grossly within normal limits. Five out of 5 muscle strength in all muscle groups. Normal speech. Laboratory Laboratory Tests Test 04/19/17 04/19/17 04/20/17 18:05 18:15 07:55 Urine Color YELLOW Urine Turbidity HAZY Urine pH 6.5 Urine Specific [place] 1.020 Urine Protein NEG Urine Glucose (UA) NEG Urine Ketones NEG Urine Occult Blood NEG Urine Nitrite NEG Urine Bilirubin NEG Urine Leukocyte Esterase TRACE Urine WBC 6-8 Urine Squamous Epithelial 0-5 Cells Urine Bacteria RARE Urine Mucus FEW Microscopic Urinalysis Comment CULT NOT INDICATED Urine Opiates Screen POS Urine Barbiturates Screen POS Urine Amphetamines Screen NEG Urine Benzodiazepines Screen NEG Urine Cocaine Screen NEG Urine Cannabinoids Screen NEG White Blood Count 10.4 10.1 Red Blood Count 4.17 4.36 Hemoglobin 9.2 9.4 Hematocrit 28.7 30.4 Mean Corpuscular Volume 68.9 69.8 Mean Corpuscular Hemoglobin 22.2 21.5 Mean Corpuscular Hemoglobin 32.2 30.8 Concent Red Cell Distribution Width 18.6 19.0 Platelet Count 421 447 Mean Platelet Volume 7.1 7.2 Neutrophils (%) (Auto) 79.0 81.2 Lymphocytes (%) (Auto) 12.3 10.4 Monocytes (%) (Auto) 7.6 5.7 Eosinophils (%) (Auto) 0.8 2.3 Basophils (%) (Auto) 0.3 0.4 Neutrophils # (Auto) 8.2 8.3 Lymphocytes # (Auto) 1.3 1.0 Monocytes # (Auto) 0.8 0.6 Eosinophils # (Auto) 0.1 0.2 Basophils # (Auto) 0.0 0.0 CBC Comment AUTO DIFF AUTO DIFF Differential Comment AUTO DIFF AUTO DIFF CONFIRMED CONFIRMED Ovalocytes 1+ 1+ Prothrombin Time 11.5 Prothromb Time International 1.0 Ratio Activated Partial 26.3 Thromboplast Time Sodium Level 140 141 Potassium Level 3.6 3.9 Chloride Level 108 107 Carbon Dioxide Level 24.0 24.9 Anion Gap 8 9 Blood Urea Nitrogen 8 5 Creatinine 0.63 0.50 Estimat Glomerular Filtration 108 140 Rate Random Glucose 113 86 Calcium Level 8.4 8.3 Total Bilirubin 0.2 0.2 Direct Bilirubin 0.1 Indirect Bilirubin 0.1 Aspartate Amino Transf 596 329 (AST/SGOT) Alanine Aminotransferase 144 204 (ALT/SGPT) Alkaline Phosphatase 258 357 Total Protein 7.8 7.1 Albumin 3.2 2.9 Lipase 213 Acetaminophen Level LESS THAN 2.0 Target Cells 1+ Result Diagram: 04/20/17 0755 04/20/17 0755 Imaging Last Impressions Abdomen/Pelvis CT 04/19/17 0000 Signed Impressions: Service Date/Time: Wednesday, April 19, 2017 19:13 - CONCLUSION: 1. Interval cholecystectomy. Prominence of the common bile duct at about 13 mm unchanged. Etiology uncertain. I don't see a duct stone. Please correlate clinically and with any laboratory evidence of biliary obstruction. 2. Gastric bypass changes without evidence of an acute complication. 3. 2 cm left ovarian cyst. No free fluid in the pelvic cavity. Michael Harrison MD Assessment and Plan Assessment and Plan //Right upper quadrant pain //Hepatitis -Elevated AST, ALt. Bilirubin within normal limits. -CT abdomen reviewed. Bile duct unchanged. No acute findings. -Antiemetics as necessary. -Fevers reported at home, however none here. Continue to monitor. -Hepatitis serologies ordered. -Gastroenterology consulted. Appreciate assistance. //Hypertension. Blood pressure acceptable. Not on blood pressure meds at home. Continue to monitor. //Seizure disorder. //Chronic migraines. //Bipolar disorder -Depression - Although these appear stable. Continue home medications. //Anemia. Chronic. Hemoglobin 9.4. Around recent baseline. Acceptable. No signs of bleeding. Continue to monitor. //Prophylaxis. CDs. Patient is ambulatory Code Status Full code Discussed Condition With Patient, nurse. Enrico Khan MD Apr 20, 2017 11:33
[2017-04-20 12:00] VITALS: BP 147/90; PULSE 72; RESP 18; TEMP 98.8; O2SAT 100
[2017-04-20] MEDS: LORazepam 1 MG TAB PO PRN (12:41)
[2017-04-20 16:00] VITALS: BP 143/90; PULSE 79; RESP 18; TEMP 98.4; O2SAT 99
[2017-04-20] MEDS ORDERED: SODIUM CHLOR 0.9% 1000 ML INJ 1,000 ML IV ONE (18:30)
[2017-04-20 20:00] VITALS: BP 151/90; PULSE 94; RESP 20; TEMP 98.2; O2SAT 98
[2017-04-20] MEDS ORDERED: QUEtiapine FUMARATE 100 MG TAB PO SCH (21:00)
[2017-04-20] MEDS ORDERED: ZIPRASIDONE HCL 40 MG CAP PO SCH (21:00)
[2017-04-20] MEDS: TOPIRAMATE 25 MG TAB PO SCH (21:02)
[2017-04-20] MEDS: DEXT 5%-NACL 0.45% 1000 ML INJ 1,000 ML IV SCH (21:02)
--- NOTE | 2017-04-20 21:25 | MB ---
cc: GALILEO TREADWELL MD DATE OF CONSULTATION 04/20/[address] Phillips REASON FOR REFERRAL Elevated liver function test and abdominal discomfort. HISTORY OF PRESENT ILLNESS Thank you for the consultation. A 36-year-old lady who had history of gallstone pancreatitis in the past status post laparoscopic cholecystectomy. On 03/15 the patient was doing okay, but then she started having right upper quadrant again and came with significant elevation of her liver function tests. The patient denied any other problem. Apparently, she had a tattoo about a month ago. She reported having low grade temperature and now but it was up to 103 at home. She had UTI and she was treated with Augmentin that she only a few doses of. The patient complained of generalized fatigue. Currently feels that the pain subsided, but still overall she has like viral illness. PAST MEDICAL HISTORY 1. Significant for depression. 2. Occasional alcohol but very rarely 3. Seizure disorder 4. Small bowel obstruction in the past 5. Iron deficiency anemia, 6. Hypertension, 7. Gastric bypass 8. Migraine headache, 9. Neck surgery 10. Gastric bypass 11. Tubal ligation, 12. Tonsillectomy, 13. Appendectomy, 14. Laparoscopic cholecystectomy. 15. Adhesiolysis. MEDICATIONS Reviewed in the chart. ALLERGIES NO KNOWN DRUG ALLERGIES. SOCIAL HISTORY Rare alcohol. No tobacco, no drugs. The patient had a tattoo about a month ago. FAMILY HISTORY Significant for cholecystectomy, anxiety and depression. PHYSICAL EXAMINATION GENERAL: Alert, oriented in no acute distress. No fever at this time. VITAL SIGNS: Stable. HEENT: Pupils round, reactive to light. NECK: Supple. CHEST: Clear to auscultation and percussion. CARDIAC: Regular rate and rhythm. ABDOMEN: Soft, mild tenderness in the right upper quadrant. Positive bowel sounds. No hepatosplenomegaly. EXTREMITIES: No edema, clubbing or cyanosis. NEUROLOGIC: Intact. PSYCHIATRIC: Psychologically appropriate. LABORATORY DATA Sodium 141, potassium 3.9, BUN, creatinine are normal. The total bilirubin 0.2, AST 329 down from 596, ALT 204 - yesterday was 144, alk phos 357 and albumin 2.9. White count 10.1, hemoglobin 9.4, platelet 447, INR 1.0. Serology negative except hepatitis A IgM antibody which was borderline high. Toxicology positive for opiates. ASSESSMENT/PLAN A 36-year-old lady with elevated liver function tests, total bilirubin was negative and she had mild dilation of the common bile duct which was stable from before. I doubt that this is common bile duct stone, especially with a normal total bilirubin. She has elevated liver enzymes, mostly AST and ALT. This could be drug induced and possibly alcohol even though the patient is saying she is not drinking, but with gastric bypass even small amount can have high effect. Also possibility of hepatitis C. Even though the antibody is negative I am going to order an RNA because of recent tattoo. Also she has weak positive Hepatitis A, could be causing her elevation of the liver function test. RECOMMENDATION 1. Continue liver function tests 2. I will check hepatitis C RNA 3. Supportive care. 4. Further plan depends on how she is doing and what her liver function test is doing. MD DEV Chisholm/ /8:01 PM /9:14 PM
[2017-04-21] VITALS: BP_SYST 119; BP_SYST 142; BP_DIAS 77; PULSE 70; PULSE 79; RESP 20; TEMP 98.1; TEMP 98.6; O2SAT 98; O2SAT 99
[2017-04-21 04:00] VITALS: BP 142/77; PULSE 70; RESP 20; TEMP 98.6; O2SAT 98
[2017-04-21] MEDS: HYDROmorphone HCL PF 1 MG/ML VIAL IV PUSH PRN ×5 (04:43→21:55)
[2017-04-21 06:46] LABS: AUTOMATED NEUTROPHIL # 5.9 TH/MM3 (1.8-7.7); BASOPHIL % 0.4 % (0.0-2.0); EOSINOPHIL # 0.4 TH/MM3 (0-0.4); EOSINOPHIL % 4.3 % (0.0-4.0); HEMATOCRIT 27.1 % (35.0-46.0); LYMPH % 18.3 % (9.0-44.0); LYMPHOCYTE # 1.6 TH/MM3 (1.0-4.8); MEAN CELL VOLUME 69.6 FL (80.0-100.0); MEAN CORPUSCULAR HEMOGLOBIN 21.5 PG (27.0-34.0); MEAN CORPUSCULAR HGB CONC 30.9 % (32.0-36.0); MONO % 8.1 % (0.0-8.0); NEUT % 68.9 % (16.0-70.0); PLATELET COUNT 377 TH/MM3 (150-450); RED BLOOD COUNT 3.89 MIL/MM3 (4.00-5.30); RED CELL DISTRIBUTION WIDTH 19.2 % (11.6-17.2); WHITE BLOOD COUNT 8.6 TH/MM3 (4.0-11.0)
[2017-04-21 06:51] LABS: HEMO FLAGS AUTO DIFF
[2017-04-21 06:59] LABS: CHLORIDE 110 MEQ/L (98-107); POTASSIUM 3.7 MEQ/L (3.5-5.1); SODIUM (NA) 142 MEQ/L (136-145)
[2017-04-21 07:06] LABS: ANION GAP 9 MEQ/L (5-15); BICARBONATE 23.4 MEQ/L (21.0-32.0); BLOOD UREA NITROGEN 5 MG/DL (7-18); MAGNESIUM 1.9 MG/DL (1.5-2.5)
[2017-04-21 07:09] LABS: ALT (GPT) 109 U/L (10-53); AST (GOT) 88 U/L (15-37); GLOMERULAR FILTRATION RATE 212 ML/MIN (>89)
[2017-04-21 07:11] LABS: INDIRECT BILIRUBIN 0.1 MG/DL (0.0-0.8); TOTAL BILIRUBIN ADULT 0.2 MG/DL (0.2-1.0)
[2017-04-21 07:12] LABS: ALKALINE PHOSPHATASE 269 U/L (45-117)
[2017-04-21 07:17] LABS: OVALOCYTES 1+ (NORMAL); SCAN/DIFF AUTO DIFF CONFIRMED
[2017-04-21 08:00] VITALS: BP 139/89; PULSE 72; RESP 20; TEMP 98.6; O2SAT 99
[2017-04-21] MEDS: SODIUM CHLORIDE 0.9% FLUSH 10 ML FLUSH IV FLUSH SCH ×2 (09:00→20:41)
[2017-04-21] MEDS: FLUoxetine HCL 20 MG CAP PO SCH (09:03)
[2017-04-21] MEDS: TOPIRAMATE 25 MG TAB PO SCH ×2 (09:03→20:41)
[2017-04-21 12:00] VITALS: BP 167/94; PULSE 69; RESP 20; TEMP 98.9; O2SAT 99
--- NOTE | 2017-04-21 13:03 | HHI.PR ---
Subjective Remarks Patient reports the right upper quadrant pain continues, nausea continues, trying to eat. No bowel movements. Objective Vital Signs Date Time Temp Pulse Resp B/P Pulse Ox O2 Delivery O2 Flow Rate FiO2 04/21/17 12:00 98.9 69 20 167/94 99 04/21/17 08:00 98.6 72 20 139/89 99 04/21/17 04:00 98.6 70 20 142/77 98 04/21/17 00:00 98.1 79 20 119/77 99 04/21/17 00:00 98.6 70 20 142/77 98 04/20/17 20:00 98 21 04/20/17 20:00 98.2 94 20 151/90 98 04/20/17 17:47 18 04/20/17 16:00 98.4 79 18 143/90 99 I/O 04/20/17 04/20/17 04/20/17 04/21/17 04/21/17 04/21/17 07:00 15:00 23:00 07:00 15:00 23:00 Intake Total 620 ml 120 ml Balance 620 ml 120 ml Intake Oral 440 ml 120 ml IV Total 180 ml # Voids 2 3 5 1 # Bowel Movements 0 0 0 Result Diagram: 04/21/17 0515 04/21/17 0515 Imaging Last Impressions Abdomen/Pelvis CT 04/19/17 0000 Signed Impressions: Service Date/Time: Wednesday, April 19, 2017 19:13 - CONCLUSION: 1. Interval cholecystectomy. Prominence of the common bile duct at about 13 mm unchanged. Etiology uncertain. I don't see a duct stone. Please correlate clinically and with any laboratory evidence of biliary obstruction. 2. Gastric bypass changes without evidence of an acute complication. 3. 2 cm left ovarian cyst. No free fluid in the pelvic cavity. Michael Harrison MD Objective Remarks GENERAL: Patient lying in bed. Appears comfortable. Alert and oriented 3. SKIN: Warm and dry. HEAD: Normocephalic. EYES: No scleral icterus. No injection or drainage. NECK: Supple, trachea midline. No JVD. CARDIOVASCULAR: Regular rate and rhythm without murmurs, gallops, or rubs. RESPIRATORY: Breath sounds equal bilaterally. No accessory muscle use. GASTROINTESTINAL: Abdomen soft, non-tender, nondistended. MUSCULOSKELETAL: No cyanosis, or edema. BACK: Nontender without obvious deformity. No CVA tenderness. A/P Assessment and Plan //Right upper quadrant pain //Hepatitis -Elevated AST, ALt. Bilirubin within normal limits. -CT abdomen reviewed. Bile duct unchanged. No acute findings. -Antiemetics as necessary. -Fevers reported at home, however none here. Continue to monitor. -Hepatitis serologies hepatitis A IgM borderline elevated Hepatitis C testing pending. -Gastroenterology following.. Continue IV fluids. Appreciate assistance. //Hypertension. Blood pressure acceptable. Not on blood pressure meds at home. Continue to monitor. -04/21. Systolics up to 160s. While supine. Variable blood pressures however. Add low-dose amlodipine. //Seizure disorder. //Chronic migraines. //Bipolar disorder -Depression - Although these appear stable. Continue home medications. //Anemia. Chronic. Hemoglobin 9.4. Around recent baseline. Acceptable. No signs of bleeding. Continue to monitor. //Prophylaxis. scds. Patient is ambulatory Discharge Planning Home when tolerating diet, and when cleared by gastroenterology. Enrico Khan MD Apr 21, 2017 13:03
[2017-04-21] MEDS: DEXT 5%-NACL 0.45% 1000 ML INJ 1,000 ML IV SCH (13:10)
[2017-04-21] MEDS ORDERED: PILL SPLITTER OTHER PRN (13:15)
[2017-04-21] MEDS ORDERED: amLODIPine BESYLATE 5 MG TAB PO ONE (13:30)
[2017-04-21] MEDS: LORazepam 1 MG TAB PO PRN (13:42)
[2017-04-21 15:58] VITALS: BP 146/96; PULSE 77; RESP 20; TEMP 98.1; O2SAT 100
--- NOTE | 2017-04-21 18:34 | HHI.GIFU ---
Subjective Remarks still having abdominal discomfort in [place], her labs improving significantly since yesterday. Objective Vitals I&O Vital Signs Date Time Temp Pulse Resp B/P Pulse Ox O2 Delivery O2 Flow Rate FiO2 04/21/17 15:58 98.1 77 20 146/96 100 04/21/17 12:00 98.9 69 20 167/94 99 04/21/17 08:00 98.6 72 20 139/89 99 04/21/17 04:00 98.6 70 20 142/77 98 04/21/17 00:00 98.1 79 20 119/77 99 04/21/17 00:00 98.6 70 20 142/77 98 04/20/17 20:00 98 21 04/20/17 20:00 98.2 94 20 151/90 98 I/O 04/20/17 04/20/17 04/20/17 04/21/17 04/21/17 04/21/17 07:00 15:00 23:00 07:00 15:00 23:00 Intake Total 620 ml 120 ml 480 ml Balance 620 ml 120 ml 480 ml Intake Oral 440 ml 120 ml 480 ml IV Total 180 ml # Voids 2 3 5 1 5 # Bowel Movements 0 0 0 2 Laboratory Laboratory Tests Test 04/21/17 05:15 White Blood Count 8.6 Red Blood Count 3.89 Hemoglobin 8.4 Hematocrit 27.1 Mean Corpuscular Volume 69.6 Mean Corpuscular Hemoglobin 21.5 Mean Corpuscular Hemoglobin 30.9 Concent Red Cell Distribution Width 19.2 Platelet Count 377 Mean Platelet Volume 7.2 Neutrophils (%) (Auto) 68.9 Lymphocytes (%) (Auto) 18.3 Monocytes (%) (Auto) 8.1 Eosinophils (%) (Auto) 4.3 Basophils (%) (Auto) 0.4 Neutrophils # (Auto) 5.9 Lymphocytes # (Auto) 1.6 Monocytes # (Auto) 0.7 Eosinophils # (Auto) 0.4 Basophils # (Auto) 0.0 CBC Comment AUTO DIFF Differential Comment AUTO DIFF CONFIRMED Ovalocytes 1+ Sodium Level 142 Potassium Level 3.7 Chloride Level 110 Carbon Dioxide Level 23.4 Anion Gap 9 Blood Urea Nitrogen 5 Creatinine 0.35 Estimat Glomerular Filtration 212 Rate Random Glucose 93 Calcium Level 7.9 Phosphorus Level 2.7 Magnesium Level 1.9 Total Bilirubin 0.2 Direct Bilirubin LESS THAN 0.1 Indirect Bilirubin 0.1 Aspartate Amino Transf 88 (AST/SGOT) Alanine Aminotransferase 109 (ALT/SGPT) Alkaline Phosphatase 269 Total Protein 6.2 Albumin 2.5 Physical Exam HEENT: Pupils round and reactive to light; normocephalic; atraumatic; no jaundice. Throat is clear. NECK: Neck is supple, no JVD, no lymphadenopathy. CHEST: Chest is clear to auscultation and percussion. CARDIAC: Regular rate and rhythm with no murmur gallop or rubs. ABDOMEN: Soft, nondistended, moderate tenderness in the RUQ; no hepatosplenomegaly; bowel sounds are present in all four quadrants. EXTREMITIES: No clubbing, cyanosis, or edema. SKIN: Normal; no rash; no jaundice. [employer]: No focal deficits; alert and oriented times three. Assessment and Plan Plan 36 YO with abdominal pain S/P lap choly last month, she had elevated LFTs which start improving significantly overnight, mostly AST more than ALT no clear etiology for the the elevation, could be etoh or medication related, we will repeat in am abdominal pain S/P gastric bypass, plan EGD in am to R/o Shanika Hilton MD Apr 21, 2017 18:33
[2017-04-21 20:00] VITALS: BP 159/100; PULSE 79; RESP 18; TEMP 98; O2SAT 100
[2017-04-21] MEDS: ZIPRASIDONE HCL 40 MG CAP PO SCH (20:41)
[2017-04-21] MEDS: QUEtiapine FUMARATE 100 MG TAB PO SCH (20:41)
[2017-04-22] VITALS: BP 142/85; PULSE 61; RESP 16; TEMP 96.2; O2SAT 100
[2017-04-22] MEDS: DEXT 5%-NACL 0.45% 1000 ML INJ 1,000 ML IV SCH (03:24)
[2017-04-22] MEDS: HYDROmorphone HCL PF 1 MG/ML VIAL IV PUSH PRN ×2 (03:29→09:25)
[2017-04-22 04:00] VITALS: BP 143/84; PULSE 64; RESP 16; TEMP 96.9; O2SAT 100
[2017-04-22 06:44] VITALS: BP 150/93; PULSE 67; RESP 18; TEMP 98.2; O2SAT 99
[2017-04-22 06:51] LABS: TOTAL BILIRUBIN ADULT 0.1 MG/DL (0.2-1.0)
[2017-04-22] MEDS ORDERED: PROPOFOL 200 MG/20 ML AMP IV ONE (07:43)
[2017-04-22 08:00] VITALS: BP 121/74; PULSE 65; RESP 18; TEMP 97.2; O2SAT 99
[2017-04-22 08:27] VITALS: BP 117/71; PULSE 72; RESP 16; TEMP 98.8; O2SAT 99
[2017-04-22] MEDS ORDERED: amLODIPine BESYLATE 5 MG TAB PO SCH (09:00)
[2017-04-22] MEDS ORDERED: DO NOT ADM ANY ANTICOAGULANT DRUGS PRN (09:15)
[2017-04-22] MEDS: FLUoxetine HCL 20 MG CAP PO SCH (09:24)
[2017-04-22] MEDS: TOPIRAMATE 25 MG TAB PO SCH (09:24)
[2017-04-22] MEDS: SODIUM CHLORIDE 0.9% FLUSH 10 ML FLUSH IV FLUSH SCH (09:24)
[2017-04-22] MEDS ORDERED: AMLO5 PO (10:36)
[2017-04-22] MEDS ORDERED: NAPR250T PO (10:36)
--- NOTE | 2017-04-22 10:37 | HHI.DCPOC ---
Discharge Care Plan Diagnosis: (1) Elevated LFTs Goals to Promote Your Health * To prevent worsening of your condition and complications * To maintain your health at the optimal level Directions to Meet Your Goals Take your medications as prescribed Follow your dietary instruction Follow activity as directed Keep your appointments as scheduled Take your immunizations and boosters as scheduled If your symptoms worsen call your PCP, if no PCP go to Urgent Care Center or Emergency Room Smoking is Dangerous to Your Health. Avoid second hand smoke Call the 24-hour hour crisis hotline for domestic abuse at Ronda Lala MD Apr 22, 2017 10:37
--- NOTE | 2017-04-22 10:42 | HHI.DS ---
Discharge Summary Admission Date Apr 19, 2017 at 20:44 Discharge Date: Apr 22, 2017 Admitting Diagnosis abdominal pain; elevated LFT's (1) Abdominal pain ICD Code: R10.9 (2) Elevated LFTs ICD Code: R79.89 Procedures egd: Erythema around anastomatosis site Brief History - From Admission 36-year-old female with history of gallstone pancreatitis, status post laparoscopic cholecystectomy on 03/15 at [facility] by Dr. Kam, presents with a one-day history of constant dull right upper quadrant pain radiating to right shoulder without any exacerbating or relieving factors. She also reports a one-day history of intermittent nausea with nonbloody emesis. She reports fevers measured up to 103 at home over the past day. She was recently started on Augmentin for a UTI, however denies any dysuria. Endorses fatigue over the past day. Denies any chest pain. CBC/BMP: 04/21/17 0515 04/21/17 0515 Significant Findings Laboratory Tests Test 04/19/17 04/19/17 04/20/17 04/21/17 18:05 18:15 07:55 05:15 Urine Turbidity HAZY (CLEAR) Urine Leukocyte Esterase TRACE (NEG) Urine WBC 6-8 /hpf (0-5) Urine Bacteria RARE /hpf (NONE) Urine Mucus FEW /lpf (OCC) Urine Opiates Screen POS (NEG) Urine Barbiturates Screen POS (NEG) Hemoglobin 9.2 GM/DL 9.4 GM/DL 8.4 GM/DL (11.6-15.3) (11.6-15.3) (11.6-15.3) Hematocrit 28.7 % 30.4 % 27.1 % (35.0-46.0) (35.0-46.0) (35.0-46.0) Mean Corpuscular Volume 68.9 FL 69.8 FL 69.6 FL (80.0-100.0) (80.0-100.0) (80.0-100.0) Mean Corpuscular Hemoglobin 22.2 PG 21.5 PG 21.5 PG (27.0-34.0) (27.0-34.0) (27.0-34.0) Red Cell Distribution Width 18.6 % 19.0 % 19.2 % (11.6-17.2) (11.6-17.2) (11.6-17.2) Neutrophils (%) (Auto) 79.0 % 81.2 % (16.0-70.0) (16.0-70.0) Neutrophils # (Auto) 8.2 TH/MM3 8.3 TH/MM3 (1.8-7.7) (1.8-7.7) Ovalocytes 1+ (NORMAL) 1+ (NORMAL) 1+ (NORMAL) Chloride Level 108 MEQ/L 110 MEQ/L (98-107) (98-107) Random Glucose 113 MG/DL (74-106) Calcium Level 8.4 MG/DL 8.3 MG/DL 7.9 MG/DL (8.5-10.1) (8.5-10.1) (8.5-10.1) Aspartate Amino Transf 596 U/L (15-37) 329 U/L (15-37) 88 U/L (15-37) (AST/SGOT) Alanine Aminotransferase 144 U/L (10-53) 204 U/L (10-53) 109 U/L (10-53) (ALT/SGPT) Alkaline Phosphatase 258 U/L 357 U/L 269 U/L (45-117) (45-117) (45-117) Albumin 3.2 GM/DL 2.9 GM/DL 2.5 GM/DL (3.4-5.0) (3.4-5.0) (3.4-5.0) Acetaminophen Level LESS THAN 2.0 MCG/ML (10.0-30.0) Mean Corpuscular Hemoglobin 30.8 % 30.9 % Concent (32.0-36.0) (32.0-36.0) Target Cells 1+ (NORMAL) Blood Urea Nitrogen 5 MG/DL (7-18) 5 MG/DL (7-18) Hepatitis A IgM Antibody BORDERLINE (NEGATIVE) Red Blood Count 3.89 MIL/MM3 (4.00-5.30) Monocytes (%) (Auto) 8.1 % (0.0-8.0) Eosinophils (%) (Auto) 4.3 % (0.0-4.0) Creatinine 0.35 MG/DL (0.50-1.00) Total Protein 6.2 GM/DL (6.4-8.2) Test 04/22/17 04:55 Total Bilirubin 0.1 MG/DL (0.2-1.0) Alanine Aminotransferase 77 U/L (10-53) (ALT/SGPT) Alkaline Phosphatase 232 U/L (45-117) Albumin 2.6 GM/DL (3.4-5.0) Imaging Last Impressions Abdomen/Pelvis CT 04/19/17 0000 Signed Impressions: Service Date/Time: Wednesday, April 19, 2017 19:13 - CONCLUSION: 1. Interval cholecystectomy. Prominence of the common bile duct at about 13 mm unchanged. Etiology uncertain. I don't see a duct stone. Please correlate clinically and with any laboratory evidence of biliary obstruction. 2. Gastric bypass changes without evidence of an acute complication. 3. 2 cm left ovarian cyst. No free fluid in the pelvic cavity. Michael Harrison MD PE at Discharge GENERAL: This is a well-nourished, well-developed patient, in no apparent distress. CARDIOVASCULAR: Regular rate and rhythm without murmurs, gallops, or rubs. RESPIRATORY: Clear to auscultation. Breath sounds equal bilaterally. No wheezes , rales, or rhonchi. GASTROINTESTINAL: Abdomen soft, non-tender, nondistended. Normal active bowel sounds MUSCULOSKELETAL: Extremities without clubbing, cyanosis, or edema. NEURO: Alert & Oriented x4 to person, place, time, situation. Moves all ext x4 Pt update on day of discharge Patient seen today in follow-up for abdominal pain. EGD completed with some erythema surrounding the anastomosis. LFTs are better, patient tolerating diet. No new complaints and patient would like to go home. Care plan discussed with patient, Eliud SHABAZZ Hospital Course Patient is a 36-year-old female who was admitted with right upper quadrant pain and elevated liver function tests. CT abdomen and pelvis were reviewed without acute intra-abdominal findings. Patient had no fevers ( although some were described at home). Gastrology consultation was obtained. EGD was performed due to abdominal discomfort. Patient was discharged home, and she was encouraged to discontinue tobacco and excessive Tylenol use Pt Condition on Discharge: Good Discharge Disposition: Discharge Home Discharge Time: > 30 minutes Discharge Instructions DIET: Follow Instructions for: As Tolerated, No Restrictions Activities you can perform: Regular-No Restrictions Follow up Referrals: Gastroenterology - 2 Weeks with Shanika Barclay MD New Medications: Naproxen (Naproxen) 250 Mg Tab 250 MG PO BID PRN PAIN SCALE 1 TO 10 #60 Ref 0 TAB Amlodipine (Norvasc) 5 Mg Tab 2.5 MG PO DAILY Blood Pressure Management #30 TAB Continued Medications: Ferrous Sulfate DR (Ferrous Sulfate DR) 324 Mg Tabdr 324 MG PO BIDPC Nutritional Supplement #30 Ref 0 TAB Fluoxetine (Prozac) 40 Mg Cap 20 MG PO DAILY #30 Ref 0 CAP Lorazepam (Ativan) 1 Mg Tab 1 MG PO Q8H PRN ANXIETY AND/OR AGITATION #90 Ref 0 TAB Quetiapine (Seroquel) 100 Mg Tab 100 MG PO HS #30 Ref 0 TAB Topiramate (Topamax) 50 Mg Tab 50 MG PO BID Control Seizures #60 Ref 0 TAB Ziprasidone (Geodon) 40 Mg Cap 80 MG PO HS #60 Ref 0 CAP Discontinued Medications: Amoxicillin-Clavulanate (Augmentin) 875-125 Mg Tab 1 TAB PO BID Infection #28 Ref 0 TAB Tgbwwfrxpn-Jmagtxnkmcwtx-Ehbsocym (Fioricet) 50-300-40 Mg Cap 1-2 CAP PO Q6H PRN HEADACHE #30 Ref 0 CAP Ronda Lala MD Apr 22, 2017 10:42
[2017-04-22] MEDS ORDERED: NAPROXEN 250 MG TAB PO PRN (12:00)
--- NOTE | 2017-04-22 18:57 | HHI.GIFU ---
Subjective Remarks still having some abdominal discomfort Objective Vitals I&O Vital Signs Date Time Temp Pulse Resp B/P Pulse Ox O2 Delivery O2 Flow Rate FiO2 04/22/17 08:27 98.8 72 16 117/71 99 04/22/17 08:00 97.2 65 18 121/74 99 04/22/17 07:50 98.8 70 16 105/68 100 04/22/17 06:44 98.2 67 18 150/93 99 04/22/17 04:00 96.9 64 16 143/84 100 04/22/17 00:00 96.2 61 16 142/85 100 04/21/17 20:00 98.0 79 18 159/100 100 I/O 04/21/17 04/21/17 04/21/17 04/22/17 04/22/17 04/22/17 07:00 15:00 23:00 07:00 15:00 23:00 Intake Total 120 ml 480 ml 520 ml 480 ml 500 ml Balance 120 ml 480 ml 520 ml 480 ml 500 ml Intake Oral 120 ml 480 ml 520 ml IV Total 480 ml Other 500 ml # Voids 1 5 1 2 # Bowel Movements 0 2 0 Laboratory Laboratory Tests Test 04/22/17 04:55 Total Bilirubin 0.1 Direct Bilirubin 0.1 Indirect Bilirubin 0.0 Aspartate Amino Transf 37 (AST/SGOT) Alanine Aminotransferase 77 (ALT/SGPT) Alkaline Phosphatase 232 Total Protein 6.5 Albumin 2.6 Physical Exam HEENT: Pupils round and reactive to light; normocephalic; atraumatic; no jaundice. Throat is clear. NECK: Neck is supple, no JVD, no lymphadenopathy. CHEST: Chest is clear to auscultation and percussion. CARDIAC: Regular rate and rhythm with no murmur gallop or rubs. ABDOMEN: Soft, nondistended, mild tenderness in the RUQ and mid epigastric area ; no hepatosplenomegaly; bowel sounds are present in all four quadrants. EXTREMITIES: No clubbing, cyanosis, or edema. SKIN: Normal; no rash; no jaundice. CABLE TELEVISION TECHNICIAN: No focal deficits; alert and oriented times three. Assessment and Plan Plan 36 YO with abdominal pain S/P lap choly last month, she had elevated LFTs which start improving significantly overnight, mostly AST more than ALT no clear etiology for the the elevation, could be etoh or medication related, we will repeat in am abdominal pain S/P gastric bypass, 6-17 improved LFTs most likely drug induced, FU as out patient with LFTs in 1 wk no ETOH abdominal discomfort EGD showed mild esophagitis and erythema at EG junction Shanika Barclay MD Apr 22, 2017 18:57
[2017-04-23 13:51] LABS: HCV RNA PCR IU/ML LESS THAN 15 IU/mL (()); HCV RNA PCR LOGIU/ML LESS THAN 1.18 (())
--- NOTE | 2017-04-25 04:57 | MR ---
cc: GALILEO BARCLAY TWETHIDA MD DATE: 04/22/2017 DATE OF : [address] Phillips PROCEDURE Upper gastrointestinal endoscopy with biopsy. ENDOSCOPIST: Dr. Barclay. MEDICATIONS Propofol administered by anesthesia. INSTRUMENT Pentax upper scope. INDICATION 36-year-old lady who complained of abdominal pain. The patient is status post gastric bypass in the past, mostly the pain in the midepigastric area and right upper quadrant. DESCRIPTION OF PROCEDURE: After informing the patient about the procedure and complication consent was signed. The patient was placed on her left lateral decubitus, adequate sedation was achieved by propofol. The scope was placed in the mouth advanced under video guidance to the small bowel, both afferent and efferent loop. The scope drawn back. Retroflexion was performed and the scope drawn back without immediate complication. FINDINGS Esophagus: Irregular Z-line, mild esophagitis, biopsy was done. Stomach: Anatomy consistent with gastric bypass. There was a small nodularity at the anastomosis, biopsy was done. Small bowel was normal. RECOMMENDATIONS: Continue PPI. Small meals. Follow up as an outpatient when the patient gets discharged. MD DEV Chisholm/URSZULA /7:04 PM /4:34 AM
[2017-04-30] MEDS ORDERED: BUTA1CAP PO (16:10)
== END 2017-04-22 13:45 | disposition home or self-care (01) ==
LOC: PHED 17:34 → PHEDA 20:44 → PH3A 22:08
PROVIDERS: ADMIT Hospitalist; ATTEND Hospitalist
DX: R10.11 Right upper quadrant pain (principal); K20.9 Esophagitis, unspecified; R79.89 Other specified abnormal findings of blood chemistry; I10 Essential (primary) hypertension; K75.9 Inflammatory liver disease, unspecified; G40.909 Epilepsy, unspecified, not intractable, without status epilepticus; F31.9 Bipolar disorder, unspecified; D64.9 Anemia, unspecified; D50.9 Iron deficiency anemia, unspecified; R73.03 Prediabetes; Z98.84 Bariatric surgery status; Z23 Encounter for immunization; Z79.899 Other long term (current) drug therapy
CPT/HCPCS: 00740; 43239; 74177; 80048; 80053; 80069; 80074; 80076; 80307; 81001; 83690; 83735; 84703; 85025; 85610; 85730; 87522; 88305; 88312; 90471; 90732; 96374; 96375; 96376; 99285; G0378; J1170; J2270; J2405; J7030; Q9967; G0009

== ENCOUNTER 2017-05-11 18:24 | Observation (INO) | payer OTHER ==
[~2017-05-11] VITALS: Ht 157.5 cm; Wt 60.0 kg
[~2017-05-11 18:24] MED LIST changes: -AMLO10 PO; +AMLO5 PO; -AUGM875T3 PO; -CARA1SUS3 PO; -FERR1TAB36 PO; +FERR324T4 PO; +NAPR250T PO; -PROM25TA5 PO; -PROT40TA PO; -VITA500C9 CHEW; -[UNRECOGNIZED DRUG - CODE] RECTAL
[2017-05-11 18:31] VITALS: BP 89/53; PULSE 104; RESP 15; TEMP 98.5; O2SAT 97
--- NOTE | 2017-05-11 18:42 | PD ---
HPI Chief Complaint: Psychiatric Symptoms Time Seen by Provider: 18:42 Travel History International Travel<30 days: No Contact w/Intl Traveler<30days: No Traveled to known affect area: No History of Present Illness HPI 36-year-old female presents to the emergency Department under [place] act by local police for depression and alcohol intoxication. According to the [place]rell act, the patient has been intoxicated quite often and her is concerned of her severe depression. The patient states that she had a large amount of rum today. She states that she does drink often. X-ray she states she took 3 Norvasc for her headache. When explained that we don't of Norvasc for her headache, she states she was mistaken and she took 3 Fioricet. When asked if she could've accidentally taken Norvasc instead of Fioricet, she states that she knows that she took Fioricet. Patient states this was to relieve her headache. She denies any suicidal attempt. She denies any suicidal or homicidal ideation to me. Patient denies any IV drug use. PFSH Past Medical History Hx Anticoagulant Therapy: No Arthritis: No Bipolar Disorder: Yes Depression: Yes Cancer: No Cardiovascular Problems: No Cerebrovascular Accident: No Diabetes: No Diminished Hearing: No Endocrine: No Gastrointestinal Disorders: No Genitourinary: No Headaches: Yes Hiatal Hernia: Yes Hypertension: Yes Immune Disorder: No Implanted Vascular Access Dvce: No Musculoskeletal: Yes (SCOLIOSIS) Neurologic: Yes (MIGRAINES, HEADACHES) Psychiatric: Yes (BIPOLAR ) Reproductive: No Respiratory: No Immunizations Current: Yes Migraines: No Seizures: No LMP: 2 years ago : 6 Para: 5 Miscarriage: 1 Tubal Ligation: Yes (2011) Past Surgical History Abdominal Surgery: Yes (gastric bypass: 2008, BOWEL OBSTRUCTION REPAIR) AICD: No Cardiac Surgery: No Section: Yes (X2) Cholecystectomy: Yes Ear Surgery: No Endocrine Surgery: No Eye Surgery: No Genitourinary Surgery: No Gynecologic Surgery: Yes (C SECTION, TUBAL LIGATION) Joint Replacement: No Neurologic Surgery: No Oral Surgery: No Pacemaker: No Thoracic Surgery: No Other Surgery: Yes (GASTRIC BYPASS, TUMMY TUCK, BREAST LIFT) Social History Alcohol Use: Yes (OCC) Tobacco Use: No (NEVER) Substance Use: No Allergies-Medications (Allergen,Severity, Reaction): Coded Allergies: No Known Allergies (Verified , 04/23/17) Reported Meds & Prescriptions Reported Meds & Active Scripts Active Fioricet (Joadpwgjjz-Hubcmlpvzhdtq-Ioxletgd) 50-300-40 Mg Cap 1-2 Cap PO Q6H PRN Naproxen 250 Mg Tab 250 Mg PO BID PRN Norvasc (Amlodipine Besylate) 5 Mg Tab 2.5 Mg PO DAILY Ativan (Lorazepam) 1 Mg Tab 1 Mg PO Q8H PRN Reported Ferrous Sulfate DR (Ferrous Sulfate) 324 Mg Tabdr 324 Mg PO BIDPC Seroquel (Quetiapine Fumarate) 100 Mg Tab 100 Mg PO HS Topamax (Topiramate) 50 Mg Tab 50 Mg PO BID Prozac (Fluoxetine HCl) 40 Mg Cap 20 Mg PO DAILY Geodon (Ziprasidone) 40 Mg Cap 80 Mg PO HS Review of Systems Except as stated in HPI: all other systems reviewed are Neg Physical Exam Narrative GENERAL: Well-nourished, well-developed female patient, afebrile. Patient is alert and oriented to person, place, time. Patient strong smell alcohol on her breath. Patient is hypotensive on arrival. SKIN: Focused skin assessment warm/dry. HEAD: Normocephalic. Atraumatic. EYES: No scleral icterus. No injection or drainage. NECK: Supple, trachea midline. No JVD or lymphadenopathy. CARDIOVASCULAR: Regular rate and rhythm without murmurs, gallops, or rubs. RESPIRATORY: Breath sounds equal bilaterally. No accessory muscle use. Lungs sounds are clear to auscultation. GASTROINTESTINAL: Abdomen soft, non-tender, nondistended. MUSCULOSKELETAL: No cyanosis, or edema. BACK: Nontender without obvious deformity. No CVA tenderness. PSYCHIATRIC: No delusional thought processes. No hallucinations. Data Data Last Documented VS Vital Signs Date Time Temp Pulse Resp B/P Pulse Ox O2 Delivery O2 Flow Rate FiO2 05/11/17 19:00 96 16 87/53 100 05/11/17 18:31 98.5 Orders Complete Blood Count With Diff (05/11/17 18:37) Comprehensive Metabolic Panel (05/11/17 18:37) Urinalysis - C+S If Indicated (05/11/17 18:37) Ed Urine Pregnancytest Poc (05/11/17 18:37) Psych Screen (05/11/17 18:37) Drug Screen, Random Urine (05/11/17 18:37) Alcohol (Ethanol) (05/11/17 18:37) Salicylates (Aspirin) (05/11/17 18:37) Tylenol (Acetaminophen) (05/11/17 18:37) Sodium Chlor 0.9% 1000 Ml Inj (Ns 1000 M (05/11/17 18:45) Sodium Chlor 0.9% 1000 Ml Inj (Ns 1000 M (05/11/17 18:45) Electrocardiogram (05/11/17 ) Blood Glucose (05/11/17 18:41) Potassium Chloride (Kcl) (05/11/17 20:00) Sodium Chlor 0.9% 1000 Ml Inj (Ns 1000 M (05/11/17 21:45) Admit Order (Ed Use Only) (05/11/17 21:53) Labs Laboratory Tests Test 05/11/17 05/11/17 18:55 20:32 White Blood Count 7.3 TH/MM3 Red Blood Count 4.68 MIL/MM3 Hemoglobin 9.6 GM/DL Hematocrit 32.0 % Mean Corpuscular Volume 68.4 FL Mean Corpuscular Hemoglobin 20.6 PG Mean Corpuscular Hemoglobin 30.1 % Concent Red Cell Distribution Width 17.9 % Platelet Count 300 TH/MM3 Mean Platelet Volume 8.6 FL Neutrophils (%) (Auto) 58.5 % Lymphocytes (%) (Auto) 31.0 % Monocytes (%) (Auto) 7.5 % Eosinophils (%) (Auto) 2.3 % Basophils (%) (Auto) 0.7 % Neutrophils # (Auto) 4.3 TH/MM3 Lymphocytes # (Auto) 2.3 TH/MM3 Monocytes # (Auto) 0.5 TH/MM3 Eosinophils # (Auto) 0.2 TH/MM3 Basophils # (Auto) 0.1 TH/MM3 CBC Comment DIFF FINAL Differential Comment Sodium Level 143 MEQ/L Potassium Level 3.2 MEQ/L Chloride Level 110 MEQ/L Carbon Dioxide Level 20.6 MEQ/L Anion Gap 12 MEQ/L Blood Urea Nitrogen 7 MG/DL Creatinine 0.79 MG/DL Estimat Glomerular Filtration 83 ML/MIN Rate Random Glucose 152 MG/DL Calcium Level 8.5 MG/DL Total Bilirubin 0.2 MG/DL Aspartate Amino Transf 38 U/L (AST/SGOT) Alanine Aminotransferase 42 U/L (ALT/SGPT) Alkaline Phosphatase 147 U/L Total Protein 7.6 GM/DL Albumin 3.6 GM/DL Salicylates Level LESS THAN 1.7 MG/DL Acetaminophen Level LESS THAN 2.0 MCG/ML Ethyl Alcohol Level 286 MG/DL Urine Color LIGHT-YELLOW Urine Turbidity HAZY Urine pH 5.5 Urine Specific [place] 1.004 Urine Protein NEG mg/dL Urine Glucose (UA) NEG mg/dL Urine Ketones NEG mg/dL Urine Occult Blood NEG Urine Nitrite NEG Urine Bilirubin NEG Urine Urobilinogen LESS THAN 2.0 MG/DL Urine Leukocyte Esterase SMALL Urine RBC 2 /hpf Urine WBC 4 /hpf Urine Squamous Epithelial 3 /hpf Cells Urine Amorphous Sediment RARE Microscopic Urinalysis Comment CULT NOT INDICATED Urine Opiates Screen NEG Urine Barbiturates Screen POS Urine Amphetamines Screen NEG Urine Benzodiazepines Screen NEG Urine Cocaine Screen NEG Urine Cannabinoids Screen NEG MDM Medical Decision Making Medical Screen Exam Complete: Yes Emergency Medical Condition: Yes Medical Record Reviewed: Yes Differential Diagnosis Depression versus anxiety versus suicidal ideation Narrative Course 36-year-old female presents to the emergency Department under [place] act by local police. Patient is intoxicated on exam. Patient states she took 3 fioricet for a headache. She is hypotensive on arrival. Patient is given 2 L NS IV. EKG, CBC, CMP, Alcohol level, UDS, salicylate level, tylenol level, UA, UPT are ordered and pending. EKG shows ST, HR 101. CBC shows anemia with hemoglobin 9.6 hematocrit 32.0. CMP shows hypokalemia at 3.2, glucose 152. Alcohol level is 286. UDS is positive for barbiturates. Salicylate level is less than 1.7. Tylenol level is less than 2.0. UA is negative for acute infection. UPT is negative. Patient remains hypotensive. Patient is given third liter nasal cannula IV. Residents are paged for observation due to hypotension, possible Norvasc overdose. Resident manager environmental accepted admission. Diagnosis Primary Impression: Hypotension Qualified Code: I95.9 - Hypotension, unspecified hypotension type Additional Impressions: Alcohol intoxication Qualified Code: F10.929 - Alcohol intoxication, with unspecified complication Bipolar 1 disorder, depressed Admitting Information Admitting Physician Requests: Observation Crystal Malloy May 11, 2017 18:42
[2017-05-11] MEDS ORDERED: SODIUM CHLOR 0.9% 1000 ML INJ 1,000 ML IV ONE ×3 (18:45→21:45)
[2017-05-11 19:00] VITALS: BP 87/53; PULSE 96; RESP 16; O2SAT 100
[2017-05-11 19:24] LABS: AUTOMATED NEUTROPHIL # 4.3 TH/MM3 (1.8-7.7); BASOPHIL # 0.1 TH/MM3 (0-0.2); BASOPHIL % 0.7 % (0.0-2.0); EOSINOPHIL # 0.2 TH/MM3 (0-0.4); EOSINOPHIL % 2.3 % (0.0-4.0); HEMO FLAGS DIFF FINAL; LYMPHOCYTE # 2.3 TH/MM3 (1.0-4.8); MEAN CELL VOLUME 68.4 FL (80.0-100.0); MEAN CORPUSCULAR HEMOGLOBIN 20.6 PG (27.0-34.0); MEAN CORPUSCULAR HGB CONC 30.1 % (32.0-36.0); MONO % 7.5 % (0.0-8.0); NEUT % 58.5 % (16.0-70.0); PLATELET COUNT 300 TH/MM3 (150-450); RED BLOOD COUNT 4.68 MIL/MM3 (4.00-5.30); RED CELL DISTRIBUTION WIDTH 17.9 % (11.6-17.2); WHITE BLOOD COUNT 7.3 TH/MM3 (4.0-11.0)
[2017-05-11 19:39] LABS: ANION GAP 12 MEQ/L (5-15); AST (GOT) 38 U/L (15-37); BICARBONATE 20.6 MEQ/L (21.0-32.0); BLOOD UREA NITROGEN 7 MG/DL (7-18); CHLORIDE 110 MEQ/L (98-107); GLOMERULAR FILTRATION RATE 83 ML/MIN (>89); POTASSIUM 3.2 MEQ/L (3.5-5.1); SODIUM (NA) 143 MEQ/L (136-145)
[2017-05-11 19:40] LABS: ALT (GPT) 42 U/L (10-53)
[2017-05-11 19:42] LABS: ALKALINE PHOSPHATASE 147 U/L (45-117); TOTAL BILIRUBIN ADULT 0.2 MG/DL (0.2-1.0)
[2017-05-11 19:49] LABS: ACETAMINOPHEN LESS THAN 2.0 MCG/ML (10.0-30.0)
[2017-05-11] MEDS ORDERED: POTASSIUM CHLORIDE 20 MEQ CONTROLLED RELEASE TAB PO ONE (20:00)
[2017-05-11 21:00] VITALS: BP 90/56; PULSE 89; RESP 16; O2SAT 100
[2017-05-11 21:06] LABS: BLOOD, URINE NEG (NEG); COMMENT (UR) CULT NOT INDICATED; CULTURE IF INDICATED CULT NOT INDICATED; GLUCOSE,URINE NEG (NEG); KETONE, URINE NEG (NEG); NITRITE,URINE NEG (NEG); PH, URINE 5.5 (5.0-8.5); SQUAMOUS EPITHELIAL CELL URINE 3 /hpf (0-5); URINE COLOR LIGHT-YELLOW (YELLW/STRAW)
[2017-05-11 21:42] LABS: AMPHETAMINE, URINE NEG (NEG); BARBITURATES, URINE POS (NEG); COCAINE, URINE NEG (NEG)
--- NOTE | 2017-05-11 22:02 | HHI.HP ---
[facility] Service Family Medicine Primary Care Physician Conor Lazcano MD Admission Diagnosis hypotension, possible overdose on Norvasc, BA Diagnoses: Chief Complaint: Farrell act, intoxication International Travel<30 Days: No Contact w/Intl Traveler<30days: No History of Present Illness 36 y/o female with history of bipolar, HTN, chronic headaches presents under Farrell Act. Per patient, she was drinking 92 proof rum a lot today. States, she usually doesn't drink this much. She was celebrating at home with her . She lives at home with him and 4 kids. She states she started drinking around 3pm. Doesn't remember being brought in by the police. Denies any suicidal or homicidal ideations. Has a history of bipolar disease, on several medications. States she has felt more depressed recently, regarding marital issues. States she took Fiorcet this morning around 9am. Took 3 pills. She usually takes 2, but states her headache was worse than normal. Headache has resolved. Denies any pain currently or any other complaint. No headache, blurry vision, chest pain, SOB, abdominal pain, leg pain. Pt was picked up by the police at her house by the police and brought to the ED under Farrell Act. According to police report, called due to concern of alcohol intoxication and depressive symptoms. Review of Systems Constitutional: DENIES: Fever, Weight loss, Chills Eyes: DENIES: Blurred vision, Eye pain, Vision loss Ears, nose, mouth, throat: DENIES: Hearing loss, Throat pain, Epistaxis Respiratory: DENIES: Cough, Wheezing, Sputum production, Shortness of breath Cardiovascular: DENIES: Chest pain, Palpitations Gastrointestinal: DENIES: Black stools, Bloody stools, Constipation, Diarrhea, Nausea, Vomiting Genitourinary: DENIES: Urinary frequency, Urinary incontinence, Dysuria Musculoskeletal: DENIES: Joint pain, Muscle aches Integumentary: DENIES: Pruritus, Rash Hematologic/lymphatic: DENIES: Bruising, Lymphadenopathy Neurologic: DENIES: Abnormal gait, Headache, Seizures Psychiatric: COMPLAINS OF: Mood changes Past Family Social History Past Medical History Daily headaches Bipolar Depression HTN Seizures Past Surgical History 1998 tonsillectomy 1989 tubal ligation 2011 gastric bypass 2013 "tummy talk and breast lift 2013" Reported Medications Reported Meds & Active Scripts Active Fioricet (Vypmykoqjz-Cnykcsbmhrwrz-Upfyrzvy) 50-300-40 Mg Cap 1-2 Cap PO Q6H PRN Norvasc (Amlodipine Besylate) 5 Mg Tab 2.5 Mg PO DAILY Ativan (Lorazepam) 1 Mg Tab 1 Mg PO Q8H PRN Reported Ferrous Sulfate DR (Ferrous Sulfate) 324 Mg Tabdr 324 Mg PO BIDPC Seroquel (Quetiapine Fumarate) 100 Mg Tab 100 Mg PO HS Topamax (Topiramate) 50 Mg Tab 50 Mg PO BID Prozac (Fluoxetine HCl) 40 Mg Cap 20 Mg PO DAILY Geodon (Ziprasidone) 40 Mg Cap 80 Mg PO HS Allergies: Coded Allergies: No Known Allergies (Verified , 04/23/17) Active Ordered Medications Active Medications Potassium Chloride 20 meq 20 meq ONCE ONCE PO Last administered on 05/11/17 20: 26; Admin Dose 20 MEQ; Start 05/11/17 at 20:00; Stop 05/11/17 at 20:01; Status DC Sodium Chloride 1,000 ml @ 999 mls/hr BOLUS ONCE IV Last administered on 18:52; Admin Dose 999 MLS/HR; Start 05/11/17 at 18:45; Stop 05/11/17 at 19:45 ; Status DC Sodium Chloride (NS 1000 ml Inj) 1,000 ml @ 999 mls/hr BOLUS ONCE IV Last administered on 05/11/17 18:52; Admin Dose 999 MLS/HR; Start 05/11/17 at 18:45; Stop 05/11/17 at 19:45; Status DC Sodium Chloride (NS 1000 ml Inj) 1,000 ml @ 999 mls/hr BOLUS ONCE IV Last administered on 05/11/17 21:39; Admin Dose 999 MLS/HR; Start 05/11/17 at 21:45; Stop 05/11/17 at 22:45 Family History Father age 58 living with diabetes, mother 48 from complications from unknown surgery. She has 2 siblings, her sister has anxiety and depression. She has 5 sons ages from 3-15. 2 of which have some developmental delay. Social History , received her GED. Denies tobacco use Drinks a beer/week Denies illicit drugs. Physical Exam Vital Signs Vital Signs Date Time Temp Pulse Resp B/P Pulse Ox O2 Delivery O2 Flow Rate FiO2 05/11/17 19:00 96 16 87/53 100 05/11/17 18:31 98.5 104 15 89/53 97 Physical Exam GENERAL: This is a well-nourished, well-developed patient, in no apparent distress. SKIN: No rashes, ecchymoses or lesions. Cool and dry. HEAD: Atraumatic. Normocephalic. No temporal or scalp tenderness. EYES: Pupils equal round and reactive. Extraocular motions intact. No scleral icterus. No injection or drainage. ENT: Nose without bleeding, purulent drainage or septal hematoma. Throat without erythema, tonsillar hypertrophy or exudate. Uvula midline. Airway patent. NECK: Trachea midline. No JVD or lymphadenopathy. Supple, nontender. CARDIOVASCULAR: Regular rate and rhythm without murmurs, gallops, or rubs. RESPIRATORY: Clear to auscultation. Breath sounds equal bilaterally. No wheezes , rales, or rhonchi. GASTROINTESTINAL: Abdomen soft, non-tender, nondistended. No hepato-splenomegaly , or palpable masses. No guarding. MUSCULOSKELETAL: Extremities without clubbing, cyanosis, or edema. No joint tenderness, effusion, or edema noted. No calf tenderness. NEUROLOGICAL: Awake and alert. Motor and sensory grossly within normal limits. Five out of 5 muscle strength in all muscle groups. Normal speech. Laboratory Laboratory Tests Test 05/11/17 05/11/17 18:55 20:32 White Blood Count 7.3 Red Blood Count 4.68 Hemoglobin 9.6 Hematocrit 32.0 Mean Corpuscular Volume 68.4 Mean Corpuscular Hemoglobin 20.6 Mean Corpuscular Hemoglobin 30.1 Concent Red Cell Distribution Width 17.9 Platelet Count 300 Mean Platelet Volume 8.6 Neutrophils (%) (Auto) 58.5 Lymphocytes (%) (Auto) 31.0 Monocytes (%) (Auto) 7.5 Eosinophils (%) (Auto) 2.3 Basophils (%) (Auto) 0.7 Neutrophils # (Auto) 4.3 Lymphocytes # (Auto) 2.3 Monocytes # (Auto) 0.5 Eosinophils # (Auto) 0.2 Basophils # (Auto) 0.1 CBC Comment DIFF FINAL Differential Comment Sodium Level 143 Potassium Level 3.2 Chloride Level 110 Carbon Dioxide Level 20.6 Anion Gap 12 Blood Urea Nitrogen 7 Creatinine 0.79 Estimat Glomerular Filtration 83 Rate Random Glucose 152 Calcium Level 8.5 Total Bilirubin 0.2 Aspartate Amino Transf 38 (AST/SGOT) Alanine Aminotransferase 42 (ALT/SGPT) Alkaline Phosphatase 147 Total Protein 7.6 Albumin 3.6 Salicylates Level LESS THAN 1.7 Acetaminophen Level LESS THAN 2.0 Ethyl Alcohol Level 286 Urine Color LIGHT-YELLOW Urine Turbidity HAZY Urine pH 5.5 Urine Specific [place] 1.004 Urine Protein NEG Urine Glucose (UA) NEG Urine Ketones NEG Urine Occult Blood NEG Urine Nitrite NEG Urine Bilirubin NEG Urine Urobilinogen LESS THAN 2.0 Urine Leukocyte Esterase SMALL Urine RBC 2 Urine WBC 4 Urine Squamous Epithelial 3 Cells Urine Amorphous Sediment RARE Microscopic Urinalysis Comment CULT NOT INDICATED Urine Opiates Screen NEG Urine Barbiturates Screen POS Urine Amphetamines Screen NEG Urine Benzodiazepines Screen NEG Urine Cocaine Screen NEG Urine Cannabinoids Screen NEG Result Diagram: 05/11/17185405/11/171854 Assessment and Plan Assessment and Plan 36 y/o female with history of bipolar, chronic headaches presents under Farrell Act for alcohol intoxication. Will admit to observation overnight and to watch hypotension. Code Status Full Discussed Condition With Dr. Cooper Problem List: (1) Alcohol intoxication Status: Acute Plan: Patient resents Farrell acted for alcohol intoxication. Per patient, has been drinking more today than usual. States she only drinks one beer a week. Per police report, was worried about alcohol intoxication and depression symptoms. Patient denies any suicidal or homicidal ideations. Alcohol level 286 on admission. -Admit to observation -Consult Psychiatry-appreciate recs -NS @ 125mls/hr -Nurse Audit alcohol screen to monitor (2) Hypotension Status: Acute Plan: Blood pressure of 89/53 on admission. Pt is s/p 3 L boluses of NS in ED. Per chart review, patient's BPs have run as low as 100s/60s as an outpatient. States she took her Norvasc this morning and 3 Fiorcets for headache. Doesn't check her BPs at home. -IVF as above -Hold home HTN meds -Continue to monitor vitals (3) Bipolar disorder Status: Acute Plan: Chronic bipolar disorder. On several home medications. Continue home meds. Appreciate Psychiatry recs. -Seroquel 100mg HS -Geodon 80mg HS -Prozac 20mg daily (4) Hx of seizure disorder Status: Acute Plan: -Continue home Topamax (5) FEN Status: Acute Plan: Fluids: NS @ 125mls/hr Electrolytes: Hypokalemia, replaced; BMP in AM Nutrition: Regular diet DVT PPx: SCDs Problem Qualifiers (1) Alcohol intoxication: Qualified Code: F10.929 - Alcohol intoxication, with unspecified complication (2) Hypotension: Qualified Code: I95.9 - Hypotension, unspecified hypotension type (3) Bipolar disorder: Qualified Code: F31.9 - Bipolar affective disorder, remission status unspecified Sanford Alfred MD R1 May 11, 2017 22:02
[2017-05-11] MEDS ORDERED: SODIUM CHLORIDE 0.9% FLUSH 10 ML FLUSH IV FLUSH PRN (22:45)
[2017-05-11] MEDS ORDERED: ACETAMINOPHEN 325 MG TAB PO PRN (22:45)
[2017-05-11] MEDS ORDERED: NALOXONE HCL 0.4 MG/ML AMP IV PRN (22:45)
[2017-05-11] MEDS ORDERED: ONDANSETRON HCL 4 MG/2 ML VIAL IVP PRN (22:45)
[2017-05-11 22:52] LABS: MEAN CORPUSCULAR HGB CONC 29.8 % (32.0-36.0)
[2017-05-11] MEDS: SODIUM CHLOR 0.9% 1000 ML INJ 1,000 ML IV SCH (23:01)
[2017-05-12 00:17] VITALS: O2SAT 96
[2017-05-12 00:45] VITALS: BP 94/63; PULSE 72; RESP 18; TEMP 98.2; O2SAT 97
[2017-05-12 05:04] VITALS: BP 97/49; PULSE 109; RESP 18; TEMP 97.8; O2SAT 96
[2017-05-12 07:15] VITALS: O2SAT 97
[2017-05-12 08:18] LABS: AUTOMATED NEUTROPHIL # 8.1 TH/MM3 (1.8-7.7); BASOPHIL # 0.1 TH/MM3 (0-0.2); BASOPHIL % 0.5 % (0.0-2.0); EOSINOPHIL # 0.1 TH/MM3 (0-0.4); EOSINOPHIL % 0.9 % (0.0-4.0); HEMATOCRIT 28.6 % (35.0-46.0); HEMO FLAGS DIFF FINAL; LYMPH % 19.7 % (9.0-44.0); LYMPHOCYTE # 2.2 TH/MM3 (1.0-4.8); MEAN CELL VOLUME 67.6 FL (80.0-100.0); MEAN CORPUSCULAR HEMOGLOBIN 20.2 PG (27.0-34.0); MONO % 7.3 % (0.0-8.0); NEUT % 71.6 % (16.0-70.0); PLATELET COUNT 242 TH/MM3 (150-450); RED BLOOD COUNT 4.23 MIL/MM3 (4.00-5.30); RED CELL DISTRIBUTION WIDTH 17.7 % (11.6-17.2); WHITE BLOOD COUNT 11.3 TH/MM3 (4.0-11.0)
[2017-05-12 08:52] LABS: POTASSIUM 3.6 MEQ/L (3.5-5.1)
--- NOTE | 2017-05-12 08:57 | PD.PSY.CON ---
Provisional Diagnosis Admission Date May 11, 2017 at 21:54 [place] I. Alcohol-induced mood disorder, Bipolar disorder, hypnotic-sedative [place] II. Deferred [place] III. HTN, Migraine [place] IV. alcohol use disorder [place] V. 55 History of Present Illness Service Psychiatry Consult Requested By Primary Care Physician Conor Lazcano MD HPI The patient 36 y/o patient is a woman, domiciled with and 4 kids, 2 of her kids disable, unemployed, with psychiatric history of bipolar disorder, multiple hospitalizations, known by service, SAs, self cutting behavior, alcohol and hypnotic sedative use disorder, (Fioricet and lorazepam), active outpatient psychiatric in [facility], she is on Geodon 40, Seroquel 100, Topamax 50, lorazepam 1 mg tid, Prozac 20, medical history of HTN, chronic headaches presents under Farrell Act. Per patient in ER note , she was drinking 92 proof rum a lot today. States, she usually doesn't drink this much. She was celebrating at home with her . She states she started drinking around 3pm. Doesn't remember being brought in by the police. Denies any suicidal or homicidal ideations. Has a history of bipolar disease, on several medications. States she has felt more depressed recently, regarding marital issues. On psychiatric evaluation patient reports good mood, she denies depression, she is in good spirit, calm and cooperative, she says she was drunk last night and dont remember today what she said. She denies SI, she says she has too many reason to live for and she knows she has been abusing alcohol, but her plan is going to AA this week. She reports full complaint with mediations and follow up. She denies HI/VH/AH. SHe is oriented X#. Denies the use of illicit drugs. use alcohol everyday, 1-2 beers, some times could take 8-10, like yesterday, but denies withdrawal in the past. She admits frequent misuse of Fioricet and Ativan. Her , reached by phone, [phone], states patient is definitely abusing Ativan and Fioricet. Drinks alcohol everyday, was supposed to go to AA yesterday. He does not thinks she will commit suicide, but expresses patietn has a severe addiction problem that could interfere with the care of her kids. He says she takes her psychotropics and go to her appointments. He feels ok with DC back home once medically clear. Review of Systems Constitutional: DENIES: Diaphoretic episodes, Fatigue, Fever, Weight gain, Weight loss, Chills, Dizziness, Change in appetite, Night Sweats Endocrine: DENIES: Abnorml menstrual pattern, Heat/cold intolerance, Polydipsia , Polyuria, Polyphagia Eyes: DENIES: Blurred vision, Diplopia, Eye inflammation, Eye pain, Vision loss , Photosensitivity, Double Vision Ears, nose, mouth, throat: DENIES: Tinnitus, Hearing loss, Vertigo, Nasal discharge, Oral lesions, Throat pain, Hoarseness, Ear Pain, Running Nose, Epistaxis, Sinus Pain, Toothache, Odynophagia Respiratory: DENIES: Apneas, Cough, Snoring, Wheezing, Hemoptysis, Sputum production, Shortness of breath Cardiovascular: DENIES: Chest pain, Palpitations, Syncope, Dyspnea on Exertion , PND, Lower Extremity Edema, Orthopnea, Claudication Gastrointestinal: DENIES: Abdominal pain, Black stools, Bloody stools, Constipation, Diarrhea, Nausea, Vomiting, Difficulty Swallowing, Anorexia Musculoskeletal: DENIES: Joint pain, Muscle aches, Stiffness, Joint Swelling, Back pain, Neck pain Integumentary: DENIES: Abnormal pigmentation, Pruritus, Rash, Nail changes, Breast masses, Breast skin changes, Nipple discharge Hematologic/lymphatic: DENIES: Bruising, Lymphadenopathy Immunologic/allergic: DENIES: Eczema, Urticaria Neurologic: DENIES: Abnormal gait, Headache, Localized weakness, Paresthesias, Seizures, Speech Problems, Tremor, Poor Balance Past Family Social History Coded Allergies: No Known Allergies (Verified , 04/23/17) Active Scripts Mqyjrkmvta-Etjlrxkitcehc-Fghlxqch (Fioricet)50-300-40 Mg Cap1-2 Cap PO Q6H PRN ( HEADACHE) #30 CAP Ref 0 Prov:Conor Lazcano MD R3 04/30/17 Naproxen 250 Mg [id number] Mg PO BID PRN (PAIN SCALE 1 TO 10) #60 TAB Ref 0 Prov:Ronda Lala MD 04/22/17 Amlodipine (Norvasc)5 Mg Tab2.5 Mg PO DAILY #30 TAB Prov:Ronda Lala MD 04/22/17 Lorazepam (Ativan)1 Mg Tab1 Mg PO Q8H PRN (ANXIETY AND/OR AGITATION) #90 TAB Ref 0 Prov:Conor Lazcano MD R3 03/11/17 Reported Medications Ferrous Sulfate DR 324 Mg Lonrp800 Mg PO BIDPC #30 TAB Ref 0 04/19/17 Quetiapine (Seroquel)100 Mg Hlj756 Mg PO HS #30 TAB Ref 0 03/15/17 Topiramate (Topamax)50 Mg Tab50 Mg PO BID #60 TAB Ref 0 01/11/17 Fluoxetine (Prozac)40 Mg Cap20 Mg PO DAILY #30 CAP Ref 0 01/11/17 Ziprasidone (Geodon)40 Mg Cap80 Mg PO HS #60 CAP Ref 0 01/11/17 Current Medications Medications (Trade) Dose Ordered Sig/Ramiro Route Start Time Stop Time Status Last Admin (NS 1000 ml Inj) 1,000 ml @ 125 mls/hr Q8H IV 05/11/17 22:34 05/11/17 23:01 (NS Flush) 2 ml UNSCH PRN IV FLUSH 05/11/17 22:45 (NS Flush) 2 ml BID IV FLUSH 05/12/17 09:00 (Tylenol) 650 mg Q4H PRN PO 05/11/17 22:45 (Zofran Inj) 4 mg Q6H PRN IVP 05/11/17 22:45 (Narcan Inj) 0.4 mg UNSCH PRN IV 05/11/17 22:45 (SEROquel) 100 mg HS PO 05/12/17 21:00 (Topamax) 50 mg BID PO 05/12/17 09:00 (Geodon) 80 mg HS PO 05/12/17 21:00 (PROzac) 20 mg DAILY PO 05/12/17 09:00 Family History She has two kids with mental disability, cerebral palsy Social History patient was born in [place], lives in [place] with family, and 4 kids, unemployed, level of education collage Patient's Strengths (min. 2) family support, Physical Exam no EPS, no withdrawal, no tremors, Vital Signs Vital Signs Date Time Temp Pulse Resp B/P Pulse Ox O2 Delivery O2 Flow Rate FiO2 05/12/17 07:15 97 21 05/12/17 05:04 97.8 109 18 97/49 Lab Results Laboratory Tests Test 05/11/17 05/11/17 18:55 20:32 White Blood Count 7.3 Red Blood Count 4.68 Hemoglobin 9.6 Hematocrit 32.0 Mean Corpuscular Volume 68.4 Mean Corpuscular Hemoglobin 20.6 Mean Corpuscular Hemoglobin 30.1 Concent Red Cell Distribution Width 17.9 Platelet Count 300 Mean Platelet Volume 8.6 Neutrophils (%) (Auto) 58.5 Lymphocytes (%) (Auto) 31.0 Monocytes (%) (Auto) 7.5 Eosinophils (%) (Auto) 2.3 Basophils (%) (Auto) 0.7 Neutrophils # (Auto) 4.3 Lymphocytes # (Auto) 2.3 Monocytes # (Auto) 0.5 Eosinophils # (Auto) 0.2 Basophils # (Auto) 0.1 CBC Comment DIFF FINAL Differential Comment Sodium Level 143 Potassium Level 3.2 Chloride Level 110 Carbon Dioxide Level 20.6 Anion Gap 12 Blood Urea Nitrogen 7 Creatinine 0.79 Estimat Glomerular Filtration 83 Rate Random Glucose 152 Calcium Level 8.5 Total Bilirubin 0.2 Aspartate Amino Transf 38 (AST/SGOT) Alanine Aminotransferase 42 (ALT/SGPT) Alkaline Phosphatase 147 Total Protein 7.6 Albumin 3.6 Salicylates Level LESS THAN 1.7 Acetaminophen Level LESS THAN 2.0 Ethyl Alcohol Level 286 Urine Color LIGHT-YELLOW Urine Turbidity HAZY Urine pH 5.5 Urine Specific [place] 1.004 Urine Protein NEG Urine Glucose (UA) NEG Urine Ketones NEG Urine Occult Blood NEG Urine Nitrite NEG Urine Bilirubin NEG Urine Urobilinogen LESS THAN 2.0 Urine Leukocyte Esterase SMALL Urine RBC 2 Urine WBC 4 Urine Squamous Epithelial 3 Cells Urine Amorphous Sediment RARE Microscopic Urinalysis Comment CULT NOT INDICATED Urine Opiates Screen NEG Urine Barbiturates Screen POS Urine Amphetamines Screen NEG Urine Benzodiazepines Screen NEG Urine Cocaine Screen NEG Urine Cannabinoids Screen NEG Result Diagram: 05/11/17 1855 05/11/171854 Mental Status Examination Appearance AA woman, good hygiene, age appearing, calm and cooperative,. Speech: Unremarkable Orientation: x3 Memory: Unremarkable Thought Process: Logical Thought Content: Unremarkable Hallucination Type: None Suicidal Ideation: No Previous Suicide Attempts: No Homicidal Ideation: No Previous Homicide Attempts: No Judgment: WNL Affect: Good Mood: Appropriate Motor Activity: Normal gait Assessment & Plan Problem List: (1) Alcohol-induced mood disorder Assessment & Plan: Patient denies depressive symptoms at this moment, she denies anxiety, pradeep and perceptual disturbances. Denies SI/HI/VH/AH. Recent suicidal statements and disorganized behavior described in were secondary to acute alcohol intoxication. patient also seem to be misusing Fioricet and lorazepam. Had a conversation with about this issue, patient is motivated to start AA meetings. She does not meet criteria for psy admission. extensive support and psychoeducation provided. CIWA highly recommended. Withdrawal of Bezo/bar/alcohol could be extremely dangerous. backer act will be lifted. ICD Code: F10.94 Assessment & Plan Estimated LOS: days Jamin Horton MD May 12, 2017 08:57
[2017-05-12] MEDS ORDERED: FLUoxetine HCL 20 MG CAP PO SCH (09:00)
[2017-05-12] MEDS ORDERED: TOPIRAMATE 25 MG TAB PO SCH (09:00)
[2017-05-12] MEDS ORDERED: SODIUM CHLORIDE 0.9% FLUSH 10 ML FLUSH IV FLUSH SCH (09:00)
[2017-05-12 09:05] VITALS: BP 107/55; PULSE 92; RESP 20; TEMP 98.4; O2SAT 92
--- NOTE | 2017-05-12 09:30 | EKG ---
Date Performed: 05/11/2017 Time Performed: 18:47:06 PTAGE: 36 years EKG: SINUS TACHYCARDIA MODERATE ST DEPRESSION ABNORMAL ECG NO PREVIOUS TRACING DOCTOR: Jimmy Harvey Interpretating Date/Time 05/12/2017 09:28:25
[2017-05-12] MEDS: SODIUM CHLOR 0.9% 1000 ML INJ 1,000 ML IV SCH (09:57)
--- NOTE | 2017-05-12 10:41 | HHI.DCPOC ---
Discharge Care Plan Diagnosis: (1) Bipolar disorder (2) Alcohol intoxication Goals to Promote Your Health * To prevent worsening of your condition and complications * To maintain your health at the optimal level Directions to Meet Your Goals Take your medications as prescribed Follow your dietary instruction Follow activity as directed Keep your appointments as scheduled Take your immunizations and boosters as scheduled If your symptoms worsen call your PCP, if no PCP go to Urgent Care Center or Emergency Room Smoking is Dangerous to Your Health. Avoid second hand smoke Call the 24-hour hour crisis hotline for domestic abuse at Alex Glynn MD R2 May 12, 2017 10:41
--- NOTE | 2017-05-12 11:14 | HHI.FPPN ---
Subjective Remarks Patient states she is doing better this morning. She denies suicidal ideation. Patient states her behavior was in response to the alcohol. Patient does typically have 1 beer a day. She has never been through alcohol withdrawals. She is currently "doing well." She would like to be discharged. Patient is motivated to start AA meetings. Psychiatry has seen the patient earlier this morning and listed Farrell act. Patient denies fever, chills, nausea, vomiting. (Alex Glynn MD R2) Objective Vitals Vital Signs Date Time Temp Pulse Resp B/P Pulse Ox O2 Delivery O2 Flow Rate FiO2 05/12/17 09:05 98.4 92 20 107/55 92 05/12/17 07:15 97 21 05/12/17 05:04 97.8 109 18 97/49 96 05/12/17 00:45 98.2 72 18 94/63 97 05/12/17 00:17 96 05/11/17 21:00 89 16 90/56 100 05/11/17 19:00 96 16 87/53 100 05/11/17 18:31 98.5 104 15 89/53 97 (Alex Glynn MD R2) Result Diagram: 05/12/17 0753 05/12/17 0753 Objective Remarks O. CONSTITUTIONAL/GEN: normally nourished, in NAD. EYES: conjunctiva normal, PERRLA, EOMI. ENT: Mouth and pharynx normal. NECK: thyroid midline, carotids symmetrical. LUNGS: clear A-P, respiratory effort is normal. CARDIOVASCULAR: RR without murmur or gallop. No significant edema. GI/ABD: soft without masses, without organomegaly. : no CVA tenderness NEURO: No focal deficits. Gait is normal SKIN: color normal, no rashes noted. HEME/LYMPH: no bruising, petechia or significant adenopathy MUSC: back is normal in appearance. Extremities are normal in appearance. PSYCH/MENTAL STATUS: Alert and oriented x 3. (Alex Glynn MD R2) A/P Assessment and Plan 36 y/o female with history of bipolar disorder and alcohol abuse presents under Farrell act. Psychiatry cleared the patient this morning from their standpoint. Currently the patient is doing well with no signs of alcohol withdrawal. We'll discharge home today. Patient would likely benefit from AA meetings. Discharge Planning Today (Alex Glynn MD R2) Attending Attestation Patient seen and examined. Case reviewed and discussed with the resident team. Agree with plan of care as discussed with me and documented in the resident note. concern for recent problems suggestive of substance abuse. alcohol should never be combined with other sedating substances like barbiturates. She is up ambulating and feels back to normal today and recognizes that her substance abuse is getting out of control. she did not want other choices to quit except AA which she states she is joining (Nita Iverson MD) Problem List: (1) Alcohol intoxication Status: Acute Plan: Alcohol level 286 on admission. No signs of withdrawal this morning. Patient typically drinks 1 beer daily. Patient is interested in AA meetings. Counseled patient on alcohol abuse Counseled patient on signs of alcohol withdrawal and that she needs to get treatment with any of these signs. Patient states she has never been through withdrawal. (2) Hypotension Status: Resolved Plan: Resolved this morning (3) Bipolar disorder Status: Acute Plan: Chronic bipolar disorder. On several home medications. Continue home meds. Appreciate Psychiatry recs. -Seroquel 100mg HS -Geodon 80mg HS -Prozac 20mg daily (4) Hx of seizure disorder Status: Acute Plan: -Continue home Topamax (5) FEN Status: Acute Plan: Fluids: Tolerating by mouth Electrolytes: Monitor and replace as needed Nutrition: Regular diet DVT PPx: SCDs (Alex Glynn MD R2) Problem Qualifiers (1) Alcohol intoxication: Qualified Code: F10.929 - Alcohol intoxication, with unspecified complication (2) Hypotension: Qualified Code: I95.9 - Hypotension, unspecified hypotension type (3) Bipolar disorder: Qualified Code: F31.9 - Bipolar affective disorder, remission status unspecified Alex Glynn MD R2 May 12, 2017 11:14 Nita Iverson MD May 12, 2017 14:44
[2017-05-12 12:34] VITALS: BP 130/69; PULSE 97; RESP 24; TEMP 98.4; O2SAT 92
[2017-05-12] MEDS ORDERED: QUEtiapine FUMARATE 100 MG TAB PO SCH (21:00)
[2017-05-12] MEDS ORDERED: ZIPRASIDONE HCL 40 MG CAP PO SCH (21:00)
[2017-05-14] MEDS ORDERED: SERO100T PO (16:47)
[2017-05-14] MEDS ORDERED: LORA-474 PO (16:47)
[2017-05-14] MEDS ORDERED: SUMA25TA2 PO (16:48)
[2017-05-14] MEDS ORDERED: MEDR4PAK PO (16:50)
[2017-05-14] MEDS ORDERED: CYAN1000P IM (16:54)
== END 2017-05-12 14:41 | disposition home or self-care (01) ==
LOC: NEPE 18:24 → NEDA 21:54 → NEPFCDU 05-12 00:27
PROVIDERS: ADMIT Family Medicine; ATTEND Family Medicine
DX: F10.129 Alcohol abuse with intoxication, unspecified (principal); I95.9 Hypotension, unspecified; D64.9 Anemia, unspecified; E87.6 Hypokalemia; R00.0 Tachycardia, unspecified; R94.31 Abnormal electrocardiogram [ECG] [EKG]; R51 Headache; I10 Essential (primary) hypertension; F31.9 Bipolar disorder, unspecified; M41.9 Scoliosis, unspecified; G40.909 Epilepsy, unspecified, not intractable, without status epilepticus; Z98.84 Bariatric surgery status; Z79.899 Other long term (current) drug therapy; Y90.8 Blood alcohol level of 240 mg/100 ml or more
CPT/HCPCS: 80048; 80053; 80307; 81001; 84703; 85025; 93005; 96360; 96361; 99285; G0378; J7030

== ENCOUNTER 2017-07-05 14:10 | Emergency (ER) | payer OTHER ==
[~2017-07-05] VITALS: Ht 157.5 cm; Wt 56.3 kg
[~2017-07-05 14:10] MED LIST changes: +ALLE60TA PO; -AMLO5 PO; -BUTA1CAP PO; +GABA400C5 PO; +INDO25CA PO; +MOME17I EACH NARE; -NAPR250T PO; +VERA40TA PO
[2017-07-05 14:25] VITALS: BP 151/95; PULSE 105; RESP 14; TEMP 99.2; O2SAT 99
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
[2017-07-05 15:04] LABS: AUTOMATED NEUTROPHIL # 4.5 TH/MM3 (1.8-7.7); BASOPHIL # 0.1 TH/MM3 (0-0.2); EOSINOPHIL # 0.1 TH/MM3 (0-0.4); EOSINOPHIL % 0.8 % (0.0-4.0); HEMATOCRIT 27.9 % (35.0-46.0); LYMPH % 21.3 % (9.0-44.0); LYMPHOCYTE # 1.4 TH/MM3 (1.0-4.8); MEAN CELL VOLUME 65.3 FL (80.0-100.0); MEAN CORPUSCULAR HEMOGLOBIN 19.4 PG (27.0-34.0); NEUT % 66.9 % (16.0-70.0); PLATELET COUNT 258 TH/MM3 (150-450); RED BLOOD COUNT 4.27 MIL/MM3 (4.00-5.30); RED CELL DISTRIBUTION WIDTH 17.2 % (11.6-17.2); WHITE BLOOD COUNT 6.7 TH/MM3 (4.0-11.0)
[2017-07-05 15:10] LABS: HEMO FLAGS AUTO DIFF; MEAN CORPUSCULAR HGB CONC 29.7 % (32.0-36.0)
[2017-07-05 15:15] LABS: CHLORIDE 109 MEQ/L (98-107); POTASSIUM 3.5 MEQ/L (3.5-5.1); SODIUM (NA) 139 MEQ/L (136-145)
[2017-07-05 15:19] LABS: ANION GAP 10 MEQ/L (5-15); BICARBONATE 20.3 MEQ/L (21.0-32.0); BLOOD UREA NITROGEN 19 MG/DL (7-18)
[2017-07-05 15:22] LABS: GLOMERULAR FILTRATION RATE 92 ML/MIN (>89)
[2017-07-05 15:27] LABS: BETA HCG QUANT LESS THAN 1 MIU/ML (0-5)
[2017-07-05 15:30] VITALS: BP 145/87; PULSE 87; RESP 16; O2SAT 100
[2017-07-05 15:41] LABS: ALCOHOL LESS THAN 1 MG/DL (0-5)
[2017-07-05 15:45] LABS: OVALOCYTES 1+ (NORMAL); PLATELET ESTIMATE SMEAR NORMAL (NORMAL); PLATELET MORPHOLOGY NORMAL (NORMAL); SCAN/DIFF AUTO DIFF CONFIRMED
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
[2017-07-05] MEDS ORDERED: KETOROLAC TROMETHAMINE 60 MG/2 ML (IM) VIAL IM ONE (16:15)
[2017-07-05 16:49] VITALS: BP 148/90
--- NOTE | 2017-07-06 15:10 | EKG ---
Date Performed: 07/05/2017 Time Performed: 14:43:50 PTAGE: 36 years EKG: Sinus rhythm NORMAL ECG PREVIOUS TRACING : 05/11/2017 18.47 Since the prior tracing, the lateral ST segment changes hav e resolved. Clinical correlation will be important to exclude ischemia. DOCTOR: Ute Linton Interpretating Date/Time 07/06/2017 15:09:37
[2017-07-09] MEDS ORDERED: HYDR50TA94 PO (15:39)
[2017-07-09] MEDS ORDERED: LEVE500T8 PO (15:39)
[2017-08-24] MEDS ORDERED: SERO100T PO (09:12)
[2017-08-24] MEDS ORDERED: VERA40TA PO (09:18)
[2017-08-24] MEDS ORDERED: INDO25CA PO (09:18)
[2017-08-24] MEDS ORDERED: GABA400C5 PO (09:18)
== END 2017-07-05 17:09 | disposition home or self-care (01) ==
LOC: PHED 14:10
DX: M54.2 Cervicalgia (principal); S50.812A Abrasion of left forearm, initial encounter; D64.9 Anemia, unspecified; I10 Essential (primary) hypertension; V49.40XA Driver injured in collision with unspecified motor vehicles in traffic accident, initial encounter; Y92.411 Interstate highway as the place of occurrence of the external cause
CPT/HCPCS: 70450; 72125; 80048; 80307; 84702; 84703; 85025; 93005; 96372; 99285; J1885

== ENCOUNTER 2017-07-06 10:38 | Emergency (ER) | payer OTHER ==
[~2017-07-06] VITALS: Ht 157.5 cm; Wt 59.0 kg
[~2017-07-06 10:38] MED LIST changes: -INDO25CA PO
[2017-07-06 10:50] VITALS: BP 140/82; PULSE 102; RESP 16; TEMP 98.9; O2SAT 100
--- NOTE | 2017-07-06 11:42 | PD ---
HPI Chief Complaint: Laceration/Skin Injury Time Seen by Provider: 11:28 Travel History International Travel<30 days: No Contact w/Intl Traveler<30days: No Traveled to known affect area: No History of Present Illness HPI 36-year-old female presents emergency department for evaluation of a laceration to her right forearm prior to arrival. Patient reports she was reaching into her washing machine when something sharp cut the right lateral aspect of her forearm. The bleeding is well-controlled. She denies numbness/tingling/ weakness of the extremity. She has full range of motion of the wrist and digits. Tetanus immunization is up-to-date. No other injuries. PFSH Past Medical History Hx Anticoagulant Therapy: No Anemia: Yes Arthritis: No Asthma: No Blood Disorders: No Bipolar Disorder: Yes Anxiety: Yes Depression: Yes Heart Rhythm Problems: No Cancer: No Cardiovascular Problems: No High Cholesterol: No Chemotherapy: No Chest Pain: No Congestive Heart Failure: No COPD: No Cerebrovascular Accident: No Diabetes: No Diminished Hearing: No Endocrine: No Gastrointestinal Disorders: Yes (HX BOWEL OBSTRUCTION) Genitourinary: No Headaches: Yes Hiatal Hernia: Yes Hypertension: Yes Immune Disorder: No Implanted Vascular Access Dvce: No Musculoskeletal: Yes (SCOLIOSIS) Neurologic: Yes (MIGRAINES, HEADACHES) Psychiatric: Yes (BIPOLAR ) Reproductive: No Respiratory: No Immunizations Current: Yes Migraines: No Radiation Therapy: No Seizures: No Sleep Apnea: No ?: Not LMP: ABLATION : 6 Para: 5 Miscarriage: 1 Tubal Ligation: Yes (2011) Past Surgical History Abdominal Surgery: Yes (gastric bypass: 2008, BOWEL OBSTRUCTION REPAIR) AICD: No Cardiac Surgery: No Section: Yes (X 2) Cholecystectomy: Yes Ear Surgery: No Endocrine Surgery: No Eye Surgery: No Genitourinary Surgery: No Gynecologic Surgery: Yes (C SECTION, TUBAL LIGATION,endometrial ablation) Joint Replacement: No Neurologic Surgery: No Oral Surgery: No Pacemaker: No Thoracic Surgery: No Other Surgery: Yes (GASTRIC BYPASS, TUMMY TUCK, BREAST LIFT) Social History Alcohol Use: Yes (Occ.) Tobacco Use: No Substance Use: No Allergies-Medications (Allergen,Severity, Reaction): Coded Allergies: No Known Allergies (Verified , 07/06/17) Reported Meds & Prescriptions Reported Meds & Active Scripts Active Fabiola Allergy (Fexofenadine HCl) 60 Mg Tab 60 Mg PO BID Nasonex Nasal [place] (Mometasone Furoate) 50 Mcg/Act Naspr 2 [place] EACH NARE DAILY Gabapentin 400 Mg Cap 400 Cap PO TID Verapamil (Verapamil HCl) 40 Mg Tab 40 Mg PO Q8H Seroquel (Quetiapine Fumarate) 100 Mg Tab 100 Mg PO HS Ativan (Lorazepam) 1 Mg Tab 1 Mg PO Q8H PRN Reported Ferrous Sulfate DR (Ferrous Sulfate) 324 Mg Tabdr 324 Mg PO BIDPC Topamax (Topiramate) 50 Mg Tab 50 Mg PO BID Prozac (Fluoxetine HCl) 40 Mg Cap 20 Mg PO DAILY Geodon (Ziprasidone) 40 Mg Cap 80 Mg PO HS Review of Systems Except as stated in HPI: all other systems reviewed are Neg Physical Exam Narrative GENERAL: Well-nourished, well-developed patient. SKIN: Focused skin assessment warm/dry. 2 cm laceration to the right forearm lateral aspect with multiple surrounding superficial abrasions. HEAD: Normocephalic. EYES: No scleral icterus. No injection or drainage. NECK: Supple, trachea midline. No JVD or lymphadenopathy. CARDIOVASCULAR: Regular rate and rhythm without murmurs, gallops, or rubs. RESPIRATORY: Breath sounds equal bilaterally. No accessory muscle use. GASTROINTESTINAL: Abdomen soft, non-tender, nondistended. MUSCULOSKELETAL: No cyanosis, or edema. Right upper extremity: Multiple abrasions and 2; laceration to the right forearm lateral aspect. Full range of motion of the wrist and digits. Normal sensation. 2+ distal pulses. Brisk cap refill. Data Data Last Documented VS Vital Signs Date Time Temp Pulse Resp B/P (MAP) Pulse Ox O2 Delivery O2 Flow Rate FiO2 07/06/17 10:50 98.9 102 16 140/82 (101) 100 MDM Medical Decision Making Medical Screen Exam Complete: Yes Emergency Medical Condition: Yes Differential Diagnosis Laceration, abrasion, contusion Narrative Course 36-year-old female with multiple abrasions and one 2 cm laceration to the right forearm. The extremity is neurovascularly intact. Bleeding is well- controlled. There is no underlying vascular or tendon injury. Procedures Procedure Narrative Laceration repair performed by [employer] medical student Jeremías under my supervision LACERATION LOCATION: Right forearm LENGTH: 5 cm NUMBER OF STITCHES/DRE: 11 REPAIR: The area of the laceration was prepped with Betadine and sterilely draped. The laceration was infiltrated with 1% lidocaine. The wound was copiously irrigated and explored without evidence of foreign body, tendon injury or neurovascular injury. The wound was closed using 5-0 proline. This was a single layer repair. A sterile dressing was applied. The patient was advised to keep the dressing clean and dry. Patient tolerated the procedure well. Diagnosis Primary Impression: Laceration of right upper extremity Qualified Codes: S41.111A - Laceration without foreign body of right upper arm , initial encounter Referrals: Primary Care Physician Additional Instructions: Do not submerge the wound in water. He may begin showering and wash the area with soap and water daily starting tomorrow. Sutures need to be removed in 7-10 days. Take [id number] Motrin and/or Tylenol as needed for pain. Follow-up with her primary doctor. Disposition: 01 DISCHARGE HOME Condition: Stable Fadumo Means Jul 06, 2017 11:42
[2017-07-09] MEDS ORDERED: LEVE500T8 PO (15:39)
[2017-07-09] MEDS ORDERED: HYDR50TA94 PO (15:39)
[2017-08-24] MEDS ORDERED: SERO100T PO (09:12)
[2017-08-24] MEDS ORDERED: VERA40TA PO (09:18)
[2017-08-24] MEDS ORDERED: INDO25CA PO (09:18)
[2017-08-24] MEDS ORDERED: GABA400C5 PO (09:18)
== END 2017-07-06 13:05 | disposition home or self-care (01) ==
LOC: PHEFT 10:38
DX: S51.811A Laceration without foreign body of right forearm, initial encounter (principal); W26.9XXA Contact with unspecified sharp object(s), initial encounter
CPT/HCPCS: 12002

== ENCOUNTER 2017-09-09 23:54 | Emergency (ER) | payer OTHER ==
[~2017-09-09] VITALS: Ht 157.5 cm; Wt 58.2 kg
[~2017-09-09 23:54] MED LIST changes: +HYDR50TA94 PO; +INDO25CA PO; +LEVE500T8 PO
[2017-09-10 00:08] VITALS: BP 159/96; PULSE 95; RESP 16; TEMP 98.2; O2SAT 99
--- NOTE | 2017-09-10 00:10 | PD ---
HPI Chief Complaint: psychiatric evaluation Time Seen by Provider: 00:05 Travel History International Travel<30 days: No Contact w/Intl Traveler<30days: No History of Present Illness HPI Patient comes in under Farrell act by police reportedly making suicidal statements and attempting to break open razor blade to cut her wrists. Patient is uncertain as to why she is here denies any homicidal or suicidal ideations. Patient does admit to drinking 2 "large beers" this evening. Patient states that she does not drink regularly and has history of gastric bypass causing the alcohol to affect her differently. Patient only concern is a superficial abrasion over her left thumb from razor blade. Patient reports her tetanus shot is up-to-date. Denies any pain with this. Denies anything making it better or worse. Denies chest pain, shortness breath, abdominal pain, headache , numbness tingling anywhere, or loss or change in bowel or bladder. PFSH Past Medical History Hx Anticoagulant Therapy: No Anemia: Yes Arthritis: No Asthma: No Blood Disorders: No Bipolar Disorder: Yes Anxiety: Yes Depression: Yes Heart Rhythm Problems: No Cancer: No Cardiovascular Problems: No High Cholesterol: No Chemotherapy: No Chest Pain: No Congestive Heart Failure: No COPD: No Cerebrovascular Accident: No Diabetes: No Diminished Hearing: No Endocrine: No Gastrointestinal Disorders: Yes (HX BOWEL OBSTRUCTION) Genitourinary: No Headaches: Yes Hiatal Hernia: Yes Hypertension: Yes Immune Disorder: No Implanted Vascular Access Dvce: No Musculoskeletal: Yes (SCOLIOSIS) Neurologic: Yes (MIGRAINES, HEADACHES) Psychiatric: Yes (BIPOLAR ) Reproductive: No Respiratory: No Immunizations Current: Yes Migraines: No Radiation Therapy: No Seizures: No Sleep Apnea: No : 6 Para: 5 Miscarriage: 1 Tubal Ligation: Yes (2011) Past Surgical History Abdominal Surgery: Yes (gastric bypass: 2008, BOWEL OBSTRUCTION REPAIR) AICD: No Cardiac Surgery: No Section: Yes (X 2) Cholecystectomy: Yes Ear Surgery: No Endocrine Surgery: No Eye Surgery: No Genitourinary Surgery: No Gynecologic Surgery: Yes (C SECTION, TUBAL LIGATION,endometrial ablation) Joint Replacement: No Neurologic Surgery: No Oral Surgery: No Pacemaker: No Thoracic Surgery: No Other Surgery: Yes (GASTRIC BYPASS, TUMMY TUCK, BREAST LIFT) Social History Alcohol Use: Yes (Occ.) Tobacco Use: No Substance Use: No Allergies-Medications (Allergen,Severity, Reaction): Coded Allergies: No Known Allergies (Verified , 08/24/17) Reported Meds & Prescriptions Reported Meds & Active Scripts Active Indomethacin 25 Mg Cap 25 Mg PO TID Take with food, milk, or antacids to decrease stomach adverse effects. Gabapentin 400 Mg Cap 400 Cap PO TID Verapamil (Verapamil HCl) 40 Mg Tab 40 Mg PO Q8H Seroquel (Quetiapine Fumarate) 100 Mg Tab 100 Mg PO HS PRN Levetiracetam 500 Mg Tab 500 Mg PO BID Hydroxyzine HCl 50 Mg Tab 50 Mg PO QID PRN 30 Days Fabiola Allergy (Fexofenadine HCl) 60 Mg Tab 60 Mg PO BID Nasonex Nasal [place] (Mometasone Furoate) 50 Mcg/Act Naspr 2 [place] EACH NARE DAILY Ativan (Lorazepam) 1 Mg Tab 1 Mg PO Q8H PRN Reported Ferrous Sulfate DR (Ferrous Sulfate) 324 Mg Tabdr 324 Mg PO BIDPC Topamax (Topiramate) 50 Mg Tab 50 Mg PO BID Prozac (Fluoxetine HCl) 40 Mg Cap 20 Mg PO DAILY Geodon (Ziprasidone) 40 Mg Cap 80 Mg PO HS Review of Systems Except as stated in HPI: all other systems reviewed are Neg Physical Exam Narrative GENERAL: Well-developed, well nourished, in no acute distress, and non-ill appearing. SKIN: Focused skin assessment warm and dry. Superficial nonrepairable and nonbleeding abrasion noted over the palmar aspect distal left thumb. HEAD: Atraumatic. Normocephalic. EYES: Pupils equal and round. EOMI. No scleral icterus. No injection or drainage. ENT: No nasal bleeding or discharge. Mucous membranes pink and moist. NECK: Trachea midline. Supple. No nuclear rigidity. CARDIOVASCULAR: Regular rate and rhythm. No murmur appreciated. RESPIRATORY: No accessory muscle use. No respiratory distress. Clear to auscultation. Breath sounds equal bilaterally. MUSCULOSKELETAL: No obvious deformities. No clubbing. No cyanosis. No edema. Full range of motion. NEUROLOGICAL: Awake and alert. No obvious cranial nerve deficits. Motor grossly within normal limits. Normal speech. PSYCHIATRIC: Appropriate mood and affect; insight and judgment normal. Data Data Last Documented VS Vital Signs Date Time Temp Pulse Resp B/P (MAP) Pulse Ox O2 Delivery O2 Flow Rate FiO2 09/10/17 00:08 98.2 95 16 159/96 (117) 99 Orders Orders Complete Blood Count With Diff (09/10/17 00:05) Comprehensive Metabolic Panel (09/10/17 00:05) Urinalysis - C+S If Indicated (09/10/17 00:05) Ed Urine Pregnancytest Poc (09/10/17 00:05) Psych Screen (09/10/17 00:05) Drug Screen, Random Urine (09/10/17 00:05) Alcohol (Ethanol) (09/10/17 00:05) Salicylates (Aspirin) (09/10/17 00:05) Tylenol (Acetaminophen) (09/10/17 00:05) Labs Laboratory Tests Test 09/10/17 00:15 09/10/17 00:25 Urine Color LIGHT-YELLOW Urine Turbidity CLEAR Urine pH 5.0 Urine Specific [place] 1.005 Urine Protein NEG mg/dL Urine Glucose (UA) NEG mg/dL Urine Ketones NEG mg/dL Urine Occult Blood NEG Urine Nitrite NEG Urine Bilirubin NEG Urine Urobilinogen LESS THAN 2.0 MG/DL Urine Leukocyte Esterase SMALL Urine RBC LESS THAN 1 /hpf Urine WBC 3 /hpf Urine Squamous Epithelial Cells 2 /hpf Urine Mucus FEW /lpf Microscopic Urinalysis Comment CULT NOT INDICATED Urine Opiates Screen NEG Urine Barbiturates Screen NEG Urine Amphetamines Screen NEG Urine Benzodiazepines Screen NEG Urine Cocaine Screen NEG Urine Cannabinoids Screen NEG White Blood Count 6.3 TH/MM3 Red Blood Count 4.46 MIL/MM3 Hemoglobin 8.6 GM/DL Hematocrit 28.4 % Mean Corpuscular Volume 63.8 FL Mean Corpuscular Hemoglobin 19.3 PG Mean Corpuscular Hemoglobin Concent 30.2 % Red Cell Distribution Width 19.2 % Platelet Count 242 TH/MM3 Mean Platelet Volume 7.2 FL Neutrophils (%) (Auto) 44.5 % Lymphocytes (%) (Auto) 41.5 % Monocytes (%) (Auto) 10.1 % Eosinophils (%) (Auto) 2.4 % Basophils (%) (Auto) 1.5 % Neutrophils # (Auto) 2.8 TH/MM3 Lymphocytes # (Auto) 2.6 TH/MM3 Monocytes # (Auto) 0.6 TH/MM3 Eosinophils # (Auto) 0.2 TH/MM3 Basophils # (Auto) 0.1 TH/MM3 CBC Comment DIFF FINAL Differential Comment Blood Urea Nitrogen 5 MG/DL Creatinine 0.55 MG/DL Random Glucose 104 MG/DL Total Protein 7.4 GM/DL Albumin 3.5 GM/DL Calcium Level 7.7 MG/DL Alkaline Phosphatase 94 U/L Aspartate Amino Transf (AST/SGOT) 26 U/L Alanine Aminotransferase (ALT/SGPT) 25 U/L Total Bilirubin 0.1 MG/DL Sodium Level 147 MEQ/L Potassium Level 3.7 MEQ/L Chloride Level 111 MEQ/L Carbon Dioxide Level 24.7 MEQ/L Anion Gap 11 MEQ/L Estimat Glomerular Filtration Rate 126 ML/MIN Salicylates Level LESS THAN 1.7 MG/DL Acetaminophen Level LESS THAN 2.0 MCG/ML Ethyl Alcohol Level 342 MG/DL MDM Medical Decision Making Medical Screen Exam Complete: Yes Emergency Medical Condition: Yes Differential Diagnosis Homicidal, suicidal, alcohol intoxication, alcohol-induced mood disorder, bipolar, metabolic disturbance, other Narrative Course Patient was seen and examined. Labs were obtained and reviewed. Patient medically cleared for further treatment and evaluation by psych. Final disposition per psych. Diagnosis Primary Impression: Alcohol intoxication Qualified Codes: F10.920 - Alcohol use, unspecified with intoxication, uncomplicated Additional Impression: Medical clearance for psychiatric admission Condition: Stable Paul Steiner Sep 10, 2017 00:10
[2017-09-10 00:55] LABS: AUTOMATED NEUTROPHIL # 2.8 TH/MM3 (1.8-7.7); BASOPHIL # 0.1 TH/MM3 (0-0.2); BASOPHIL % 1.5 % (0.0-2.0); EOSINOPHIL # 0.2 TH/MM3 (0-0.4); EOSINOPHIL % 2.4 % (0.0-4.0); HEMATOCRIT 28.4 % (35.0-46.0); HEMO FLAGS DIFF FINAL; LYMPH % 41.5 % (9.0-44.0); LYMPHOCYTE # 2.6 TH/MM3 (1.0-4.8); MEAN CELL VOLUME 63.8 FL (80.0-100.0); MEAN CORPUSCULAR HEMOGLOBIN 19.3 PG (27.0-34.0); MEAN CORPUSCULAR HGB CONC 30.2 % (32.0-36.0); MONO % 10.1 % (0.0-8.0); NEUT % 44.5 % (16.0-70.0); PLATELET COUNT 242 TH/MM3 (150-450); RED BLOOD COUNT 4.46 MIL/MM3 (4.00-5.30); RED CELL DISTRIBUTION WIDTH 19.2 % (11.6-17.2); WHITE BLOOD COUNT 6.3 TH/MM3 (4.0-11.0)
[2017-09-10 00:57] LABS: BLOOD, URINE NEG (NEG); COMMENT (UR) CULT NOT INDICATED; CULTURE IF INDICATED CULT NOT INDICATED; GLUCOSE,URINE NEG (NEG); KETONE, URINE NEG (NEG); MUCUS URINE FEW /lpf (OCC); NITRITE,URINE NEG (NEG); SQUAMOUS EPITHELIAL CELL URINE 2 /hpf (0-5); URINE COLOR LIGHT-YELLOW (YELLW/STRAW)
[2017-09-10 00:59] LABS: ALT (GPT) 25 U/L (10-53); ANION GAP 11 MEQ/L (5-15); AST (GOT) 26 U/L (15-37); BICARBONATE 24.7 MEQ/L (21.0-32.0); BLOOD UREA NITROGEN 5 MG/DL (7-18); CHLORIDE 111 MEQ/L (98-107); GLOMERULAR FILTRATION RATE 126 ML/MIN (>89); POTASSIUM 3.7 MEQ/L (3.5-5.1); SODIUM (NA) 147 MEQ/L (136-145)
[2017-09-10 01:01] LABS: ALKALINE PHOSPHATASE 94 U/L (45-117); TOTAL BILIRUBIN ADULT 0.1 MG/DL (0.2-1.0)
[2017-09-10 01:08] LABS: ACETAMINOPHEN LESS THAN 2.0 MCG/ML (10.0-30.0)
[2017-09-10 01:09] LABS: ALCOHOL 342 MG/DL (0-5)
[2017-09-10] MEDS ORDERED: LORazepam 1 MG TAB PO PRN (03:30)
[2017-09-10] MEDS ORDERED: LORazepam 2 MG TAB PO PRN (03:30)
[2017-09-10] MEDS ORDERED: LORazepam 2 MG/ML VIAL IV PUSH PRN ×4 (03:30)
[2017-09-10] MEDS ORDERED: FLUMAZENIL 0.5 MG/5 ML VIAL IV PUSH PRN (03:30)
[2017-09-10 03:45] VITALS: BP 126/72; PULSE 78; RESP 18; TEMP 98.2; O2SAT 98
[2017-09-10 05:23] VITALS: BP 116/58; PULSE 99; RESP 18; O2SAT 95
[2017-09-10 12:08] VITALS: BP 153/80; PULSE 90; RESP 18; TEMP 98.5; O2SAT 98
--- NOTE | 2017-09-10 14:22 | PD ---
History of Present Illness Chief Complaint: Psychiatric Symptoms Time Seen by Provider: 14:00 Travel History International Travel<30 Days: No Contact w/Intl Traveler<30days: No Known affected area: No Legal Status Legal Status: Farrell Act Farrell Act Signed By: Nguyen Farrell Act Comment: [facility] #[id number] History of Present Illness: 36-year-old female brought in under a Farrell act for making suicidal statements while intoxicated. Patient is no longer intoxicated and denies any suicidal or homicidal ideation, plan or intent. Her cognition is intact and she has no psychotic symptoms. She is verbally deborah for safety and she is competent to do so. This physician also spoke with her Ralph, who vouches for her safety. He does state that she is drinking too much alcohol and he was given a referral for [facility] Past Medical History Hx Anticoagulant Therapy: No Anemia: Yes Arthritis: No Asthma: No Blood Disorders: No Bipolar Disorder: Yes Anxiety: Yes Depression: Yes Heart Rhythm Problems: No Cardiovascular Problems: No High Cholesterol: No Chemotherapy: No Chest Pain: No Congestive Heart Failure: No COPD: No Cerebrovascular Accident: No Diabetes: No Diminished Hearing: No Endocrine: No Gastrointestinal Disorders: Yes (HX BOWEL OBSTRUCTION) Genitourinary: No Headaches: Yes Hiatal Hernia: Yes Hypertension: Yes Implanted Vascular Access Dvce: No Musculoskeletal: Yes (SCOLIOSIS) Neurologic: Yes (MIGRAINES, HEADACHES) Psychiatric: Yes (BIPOLAR ) Reproductive: No Respiratory: No Immunizations Current: Yes Migraines: No Radiation Therapy: No Sleep Apnea: No Tetanus Vaccination: < 5 Years ?: Not LMP: "YEARS AGO" : 6 Para: 5 Miscarriage: 1 Tubal Ligation: Yes (2011) Past Surgical History Abdominal Surgery: Yes (gastric bypass: 2008, BOWEL OBSTRUCTION REPAIR) AICD: No Cardiac Surgery: No Section: Yes (X 2) Cholecystectomy: Yes Ear Surgery: No Endocrine Surgery: No Eye Surgery: No Genitourinary Surgery: No Gynecologic Surgery: Yes (C SECTION, TUBAL LIGATION,endometrial ablation) Neurologic Surgery: No Oral Surgery: No Thoracic Surgery: No Other Surgery: Yes (GASTRIC BYPASS, TUMMY TUCK, BREAST LIFT) Psychiatric History Psychiatric History Hx Psychiatric Treatment: Bipolar disorder. This physician does not see any significant objective clinical evidence of bipolar disorder at this time. History of Inpatient Treatment: Yes Guns or firearms in home: No Social History Hx Alcohol Use: Yes (Occ.) Hx Tobacco Use: No Hx Substance Use: Yes (ETOH 2-3 large vol. beers/day) Substance Use Type: Alcohol Hx of Substance Use Treatment: No Allergies-Medications (Allergen,Severity, Reaction): Coded Allergies: No Known Allergies (Verified Adverse Reaction, Unknown, 09/10/17) Reported Meds & Prescriptions Reported Meds & Active Scripts Active Indomethacin 25 Mg Cap 25 Mg PO TID Take with food, milk, or antacids to decrease stomach adverse effects. Gabapentin 400 Mg Cap 400 Cap PO TID Verapamil (Verapamil HCl) 40 Mg Tab 40 Mg PO Q8H Seroquel (Quetiapine Fumarate) 100 Mg Tab 100 Mg PO HS PRN Levetiracetam 500 Mg Tab 500 Mg PO BID Hydroxyzine HCl 50 Mg Tab 50 Mg PO QID PRN 30 Days Fabiola Allergy (Fexofenadine HCl) 60 Mg Tab 60 Mg PO BID Nasonex Nasal [place] (Mometasone Furoate) 50 Mcg/Act Naspr 2 [place] EACH NARE DAILY Ativan (Lorazepam) 1 Mg Tab 1 Mg PO Q8H PRN Reported Ferrous Sulfate DR (Ferrous Sulfate) 324 Mg Tabdr 324 Mg PO BIDPC Topamax (Topiramate) 50 Mg Tab 50 Mg PO BID Prozac (Fluoxetine HCl) 40 Mg Cap 20 Mg PO DAILY Geodon (Ziprasidone) 40 Mg Cap 80 Mg PO HS Review of Systems Except as stated in HPI: all other systems reviewed are Neg Mental Status Examination Appearance: Appropriate Consciousness: Alert Orientation: x4 Motor Activity: Normal gait Speech: Unremarkable Language: Adequate Fund of Knowledge: Adequate Attention and Concentration: Adequate Memory: Unremarkable Mood: Appropriate Affect: Appropriate Thought Process & Associations: Intact Thought Content: Appropriate Hallucination Type: None Delusion Type: None Suicidal Ideation: No Suicidal Plan: No Suicidal Intention: No Homicidal Ideation: No Homicidal Plan: No Homicidal Intention: No Insight: Adequate Judgment: Adequate MDM Medical Decision Making Medical Record Reviewed: Yes Assessment/Plan Patient interviewed at bedside, medical record reviewed and case discussed with nurse Raza. Patient does not meet criteria for a cracked or involuntary psychiatric hospitalization at this time. She is being released with a referral to [facility]. Orders Orders Complete Blood Count With Diff (09/10/17 00:05) Comprehensive Metabolic Panel (09/10/17 00:05) Urinalysis - C+S If Indicated (09/10/17 00:05) Ed Urine Pregnancytest Poc (09/10/17 00:05) Psych Screen (09/10/17 00:05) Drug Screen, Random Urine (09/10/17 00:05) Alcohol (Ethanol) (09/10/17 00:05) Salicylates (Aspirin) (09/10/17 00:05) Tylenol (Acetaminophen) (09/10/17 00:05) Alcohol Withdrawal Asmt-Ciwa ONCE (09/10/17 03:30) Flumazenil Inj (Romazicon Inj) (09/10/17 03:30) Lorazepam (Ativan) (09/10/17 03:30) Lorazepam Inj (Ativan Inj) (09/10/17 03:30) Lorazepam (Ativan) (09/10/17 03:30) Lorazepam Inj (Ativan Inj) (09/10/17 03:30) Lorazepam Inj (Ativan Inj) (09/10/17 03:30) Lorazepam Inj (Ativan Inj) (09/10/17 03:30) Diet Regular Basic (09/10/17 Breakfast) Diet Regular Basic (09/10/17 Lunch) Results Vital Signs Date Time Temp Pulse Resp B/P (MAP) Pulse Ox O2 Delivery O2 Flow Rate FiO2 09/10/17 12:08 98.5 90 18 153/80 (104) 98 Room Air 09/10/17 05:23 99 18 116/58 (77) 95 Room Air 09/10/17 03:45 98.2 78 18 126/72 (90) 98 Room Air 09/10/17 00:08 98.2 95 16 159/96 (117) 99 Laboratory Tests Test 09/10/17 00:15 09/10/17 00:25 Urine Color LIGHT-YELLOW Urine Turbidity CLEAR Urine pH 5.0 Urine Specific [place] 1.005 Urine Protein NEG Urine Glucose (UA) NEG Urine Ketones NEG Urine Occult Blood NEG Urine Nitrite NEG Urine Bilirubin NEG Urine Urobilinogen LESS THAN 2.0 Urine Leukocyte Esterase SMALL Urine RBC LESS THAN 1 Urine WBC 3 Urine Squamous Epithelial Cells 2 Urine Mucus FEW Microscopic Urinalysis Comment CULT NOT INDICATED Urine Opiates Screen NEG Urine Barbiturates Screen NEG Urine Amphetamines Screen NEG Urine Benzodiazepines Screen NEG Urine Cocaine Screen NEG Urine Cannabinoids Screen NEG White Blood Count 6.3 Red Blood Count 4.46 Hemoglobin 8.6 Hematocrit 28.4 Mean Corpuscular Volume 63.8 Mean Corpuscular Hemoglobin 19.3 Mean Corpuscular Hemoglobin Concent 30.2 Red Cell Distribution Width 19.2 Platelet Count 242 Mean Platelet Volume 7.2 Neutrophils (%) (Auto) 44.5 Lymphocytes (%) (Auto) 41.5 Monocytes (%) (Auto) 10.1 Eosinophils (%) (Auto) 2.4 Basophils (%) (Auto) 1.5 Neutrophils # (Auto) 2.8 Lymphocytes # (Auto) 2.6 Monocytes # (Auto) 0.6 Eosinophils # (Auto) 0.2 Basophils # (Auto) 0.1 CBC Comment DIFF FINAL Differential Comment Blood Urea Nitrogen 5 Creatinine 0.55 Random Glucose 104 Total Protein 7.4 Albumin 3.5 Calcium Level 7.7 Alkaline Phosphatase 94 Aspartate Amino Transf (AST/SGOT) 26 Alanine Aminotransferase (ALT/SGPT) 25 Total Bilirubin 0.1 Sodium Level 147 Potassium Level 3.7 Chloride Level 111 Carbon Dioxide Level 24.7 Anion Gap 11 Estimat Glomerular Filtration Rate 126 Salicylates Level LESS THAN 1.7 Acetaminophen Level LESS THAN 2.0 Ethyl Alcohol Level 342 Diagnosis Primary Impression: Alcohol abuse Condition: Stable Martinez Chowdary MD Sep 10, 2017 14:22
[2017-09-10 16:32] VITALS: BP_SYST 153; BP_SYST 156; BP_DIAS 80; PULSE 78; PULSE 90; RESP 18; TEMP 98.2; TEMP 98.5; O2SAT 98
--- NOTE | 2017-09-10 17:07 | PD ---
Physical Exam Date Seen by Provider: Sep 10, 2017 Time Seen by Provider: 17:05 Narrative 36-year-old female previously medically cleared for psychiatric evaluation under the Farrell act. Patient was seen by an psychiatric cleared by Dr. Chowdary, psychiatrist. Patient is currently medically stable. Patient will follow up as per Dr. Chowdary's note. Patient is felt medically stable for discharge. Data Data Last Documented VS Vital Signs Date Time Temp Pulse Resp B/P (MAP) Pulse Ox O2 Delivery O2 Flow Rate FiO2 09/10/17 16:32 98.2 78 18 156/80 (105) 98 Room Air Orders Orders Complete Blood Count With Diff (09/10/17 00:05) Comprehensive Metabolic Panel (09/10/17 00:05) Urinalysis - C+S If Indicated (09/10/17 00:05) Ed Urine Pregnancytest Poc (09/10/17 00:05) Psych Screen (09/10/17 00:05) Drug Screen, Random Urine (09/10/17 00:05) Alcohol (Ethanol) (09/10/17 00:05) Salicylates (Aspirin) (09/10/17 00:05) Tylenol (Acetaminophen) (09/10/17 00:05) Alcohol Withdrawal Asmt-Ciwa ONCE (09/10/17 03:30) Flumazenil Inj (Romazicon Inj) (09/10/17 03:30) Lorazepam (Ativan) (09/10/17 03:30) Lorazepam Inj (Ativan Inj) (09/10/17 03:30) Lorazepam (Ativan) (09/10/17 03:30) Lorazepam Inj (Ativan Inj) (09/10/17 03:30) Lorazepam Inj (Ativan Inj) (09/10/17 03:30) Lorazepam Inj (Ativan Inj) (09/10/17 03:30) Diet Regular Basic (09/10/17 Breakfast) Diet Regular Basic (09/10/17 Lunch) Diet Regular Basic (09/10/17 Dinner) Labs Laboratory Tests Test 09/10/17 00:15 09/10/17 00:25 Urine Color LIGHT-YELLOW Urine Turbidity CLEAR Urine pH 5.0 Urine Specific [place] 1.005 Urine Protein NEG mg/dL Urine Glucose (UA) NEG mg/dL Urine Ketones NEG mg/dL Urine Occult Blood NEG Urine Nitrite NEG Urine Bilirubin NEG Urine Urobilinogen LESS THAN 2.0 MG/DL Urine Leukocyte Esterase SMALL Urine RBC LESS THAN 1 /hpf Urine WBC 3 /hpf Urine Squamous Epithelial Cells 2 /hpf Urine Mucus FEW /lpf Microscopic Urinalysis Comment CULT NOT INDICATED Urine Opiates Screen NEG Urine Barbiturates Screen NEG Urine Amphetamines Screen NEG Urine Benzodiazepines Screen NEG Urine Cocaine Screen NEG Urine Cannabinoids Screen NEG White Blood Count 6.3 TH/MM3 Red Blood Count 4.46 MIL/MM3 Hemoglobin 8.6 GM/DL Hematocrit 28.4 % Mean Corpuscular Volume 63.8 FL Mean Corpuscular Hemoglobin 19.3 PG Mean Corpuscular Hemoglobin Concent 30.2 % Red Cell Distribution Width 19.2 % Platelet Count 242 TH/MM3 Mean Platelet Volume 7.2 FL Neutrophils (%) (Auto) 44.5 % Lymphocytes (%) (Auto) 41.5 % Monocytes (%) (Auto) 10.1 % Eosinophils (%) (Auto) 2.4 % Basophils (%) (Auto) 1.5 % Neutrophils # (Auto) 2.8 TH/MM3 Lymphocytes # (Auto) 2.6 TH/MM3 Monocytes # (Auto) 0.6 TH/MM3 Eosinophils # (Auto) 0.2 TH/MM3 Basophils # (Auto) 0.1 TH/MM3 CBC Comment DIFF FINAL Differential Comment Blood Urea Nitrogen 5 MG/DL Creatinine 0.55 MG/DL Random Glucose 104 MG/DL Total Protein 7.4 GM/DL Albumin 3.5 GM/DL Calcium Level 7.7 MG/DL Alkaline Phosphatase 94 U/L Aspartate Amino Transf (AST/SGOT) 26 U/L Alanine Aminotransferase (ALT/SGPT) 25 U/L Total Bilirubin 0.1 MG/DL Sodium Level 147 MEQ/L Potassium Level 3.7 MEQ/L Chloride Level 111 MEQ/L Carbon Dioxide Level 24.7 MEQ/L Anion Gap 11 MEQ/L Estimat Glomerular Filtration Rate 126 ML/MIN Salicylates Level LESS THAN 1.7 MG/DL Acetaminophen Level LESS THAN 2.0 MCG/ML Ethyl Alcohol Level 342 MG/DL [facility] Medical Record Reviewed: Yes Supervised Visit with LACI: Yes Narrative Course 36-year-old female previously medically cleared for psychiatric evaluation under the Farrell act. Patient was seen by an psychiatric cleared by Dr. Chowdary, psychiatrist. Patient is currently medically stable. Patient will follow up as per Dr. Chowdary's note. Patient is felt medically stable for discharge. Diagnosis Primary Impression: Alcohol abuse Patient Instructions: General Instructions Med/Other Pt SpecificInfo: No Meds Exist/No RX given Disposition: 01 DISCHARGE HOME Condition: Stable Vivek Marin Sep 10, 2017 17:07
== END 2017-09-10 17:27 | disposition home or self-care (01) ==
LOC: NEPD 23:54 → NEPJ 09-10 17:27
DX: Z02.89 Encounter for other administrative examinations (principal); F10.920 Alcohol use, unspecified with intoxication, uncomplicated; F10.10 Alcohol abuse, uncomplicated; S60.312A Abrasion of left thumb, initial encounter; I10 Essential (primary) hypertension; X58.XXXA Exposure to other specified factors, initial encounter; Z79.899 Other long term (current) drug therapy; Z86.2 Personal history of diseases of the blood and blood-forming organs and certain disorders involving the immune mechanism; Z86.59 Personal history of other mental and behavioral disorders; Z87.19 Personal history of other diseases of the digestive system; Z87.39 Personal history of other diseases of the musculoskeletal system and connective tissue; Z86.69 Personal history of other diseases of the nervous system and sense organs
CPT/HCPCS: 80053; 80307; 81001; 85025; 99284

== ENCOUNTER 2017-10-07 17:55 | Emergency (ER) | payer OTHER ==
[~2017-10-07] VITALS: Ht 157.5 cm; Wt 60.0 kg
[~2017-10-07 17:55] MED LIST changes: +FLUO40CA PO
[2017-10-07 18:00] VITALS: BP 186/98; PULSE 112; RESP 16; TEMP 98.8; O2SAT 98
[2017-10-07] MEDS ORDERED: LORazepam 2 MG/ML VIAL IV PUSH SCH (18:15)
[2017-10-07] MEDS ORDERED: SODIUM CHLORIDE 0.9% FLUSH 10 ML FLUSH IVF PRN (18:15)
[2017-10-07 18:26] VITALS: O2SAT 98
[2017-10-07 18:26] LABS: AUTOMATED NEUTROPHIL # 5.4 TH/MM3 (1.8-7.7); BASOPHIL # 0.1 TH/MM3 (0-0.2); BASOPHIL % 0.8 % (0.0-2.0); EOSINOPHIL # 0.1 TH/MM3 (0-0.4); HEMATOCRIT 28.7 % (35.0-46.0); LYMPHOCYTE # 2.2 TH/MM3 (1.0-4.8); MEAN CELL VOLUME 63.6 FL (80.0-100.0); MEAN CORPUSCULAR HEMOGLOBIN 19.3 PG (27.0-34.0); MEAN CORPUSCULAR HGB CONC 30.4 % (32.0-36.0); MONO % 9.7 % (0.0-8.0); NEUT % 63.5 % (16.0-70.0); PLATELET COUNT 244 TH/MM3 (150-450); RED BLOOD COUNT 4.51 MIL/MM3 (4.00-5.30); RED CELL DISTRIBUTION WIDTH 17.5 % (11.6-17.2); WHITE BLOOD COUNT 8.6 TH/MM3 (4.0-11.0)
[2017-10-07 18:32] LABS: HEMO FLAGS AUTO DIFF
[2017-10-07 18:33] LABS: CHLORIDE 104 MEQ/L (98-107); SODIUM (NA) 137 MEQ/L (136-145)
--- NOTE | 2017-10-07 18:35 | PD ---
HPI . Chest pain and dizziness Chief Complaint: Chest Pain Time Seen by Provider: 18:02 Travel History International Travel<30 days: No Contact w/Intl Traveler<30days: No Traveled to known affect area: No History of Present Illness HPI Patient presents with a chief complaint of chest pain and dizziness. Onset was 20 minutes prior to presentation. She reports nausea, vomiting and diarrhea all day. She has had approximately 4 episodes of each. She states that her stools have been black today. She denies the use of Pepto-Bismol. The chest pain and dizziness just started. She reports no modifying factors. Her chest pain is described as a squeezing sensation. The pain is rated 8/10. Her significant other reports excessive alcohol use this past week. PFSH Past Medical History Hx Anticoagulant Therapy: No Anemia: Yes Arthritis: No Asthma: No Blood Disorders: No Bipolar Disorder: Yes Anxiety: Yes Depression: Yes Heart Rhythm Problems: No Cardiovascular Problems: No High Cholesterol: No Chemotherapy: No Chest Pain: No Congestive Heart Failure: No COPD: No Cerebrovascular Accident: No Diabetes: No Diminished Hearing: No Endocrine: No Gastrointestinal Disorders: Yes (HX BOWEL OBSTRUCTION) Genitourinary: No Headaches: Yes Hiatal Hernia: Yes Hypertension: Yes Implanted Vascular Access Dvce: No Musculoskeletal: Yes (SCOLIOSIS) Neurologic: Yes (MIGRAINES, HEADACHES) Psychiatric: Yes (BIPOLAR ) Reproductive: No Respiratory: No Immunizations Current: Yes Migraines: No Radiation Therapy: No Sleep Apnea: No : 6 Para: 5 Miscarriage: 1 Tubal Ligation: Yes (2011) Past Surgical History Abdominal Surgery: Yes (gastric bypass: 2009, BOWEL OBSTRUCTION REPAIR) AICD: No Cardiac Surgery: No Section: Yes (X 2) Cholecystectomy: Yes Ear Surgery: No Endocrine Surgery: No Eye Surgery: No Genitourinary Surgery: No Gynecologic Surgery: Yes (C SECTION, TUBAL LIGATION,endometrial ablation) Neurologic Surgery: No Oral Surgery: No Thoracic Surgery: No Other Surgery: Yes (GASTRIC BYPASS, TUMMY TUCK, BREAST LIFT) Social History Alcohol Use: Yes (Occ.) Tobacco Use: No Substance Use: Yes (ETOH 2-3 large vol. beers/day) Allergies-Medications (Allergen,Severity, Reaction): Coded Allergies: No Known Allergies (Verified Adverse Reaction, Unknown, 09/23/17) Reported Meds & Prescriptions Reported Meds & Active Scripts Active Fluoxetine (Fluoxetine HCl) 40 Mg Cap 80 Cap PO DAILY Topamax (Topiramate) 50 Mg Tab 50 Mg PO BID Geodon (Ziprasidone) 40 Mg Cap 80 Mg PO HS Indomethacin 25 Mg Cap 25 Mg PO TID Take with food, milk, or antacids to decrease stomach adverse effects. Gabapentin 400 Mg Cap 400 Cap PO TID Verapamil (Verapamil HCl) 40 Mg Tab 40 Mg PO Q8H Seroquel (Quetiapine Fumarate) 100 Mg Tab 100 Mg PO HS PRN Levetiracetam 500 Mg Tab 500 Mg PO BID Hydroxyzine HCl 50 Mg Tab 50 Mg PO QID PRN 30 Days Fabiola Allergy (Fexofenadine HCl) 60 Mg Tab 60 Mg PO BID Nasonex Nasal [place] (Mometasone Furoate) 50 Mcg/Act Naspr 2 [place] EACH NARE DAILY Ativan (Lorazepam) 1 Mg Tab 1 Mg PO Q8H PRN Reported Ferrous Sulfate DR (Ferrous Sulfate) 324 Mg Tabdr 324 Mg PO BIDPC Review of Systems Except as stated in HPI: all other systems reviewed are Neg General / Constitutional: No: Fever, Chills HENT: Positive: Lightheadedness Cardiovascular: Positive: Chest Pain or Discomfort Gastrointestinal: Positive: Nausea, Vomiting, Diarrhea Physical Exam Narrative GENERAL: Patient is awake and alert and does not appear to be in any acute distress. She is moving her head at will and does not act like someone with vertigo. SKIN: warm/dry. Good color. HEAD: Normocephalic. Atraumatic. EYES: Pupils equal and round. No scleral icterus. No injection or drainage. ENT: No nasal bleeding or discharge. Mucous membranes pink and moist. NECK: Trachea midline. Full range of motion without pain.. CARDIOVASCULAR: Regular rate and rhythm. Heart sounds are normal. RESPIRATORY: No accessory muscle use. Clear to auscultation. Breath sounds equal bilaterally. GASTROINTESTINAL: Abdomen soft. Nontender. Bowel sounds present. Nondistended. : MUSCULOSKELETAL: No obvious deformities. NEUROLOGICAL: Awake and alert. No obvious cranial nerve deficits. Motor grossly within normal limits. Normal speech. PSYCHIATRIC: Appropriate mood and affect; insight and judgment normal. Data Data Last Documented VS Vital Signs Date Time Temp Pulse Resp B/P (MAP) Pulse Ox O2 Delivery O2 Flow Rate FiO2 10/07/17 18:26 98 Room Air 10/07/17 18:00 98.8 112 16 186/98 (127) Orders Orders Electrocardiogram (10/07/17 18:09) Basic Metabolic Panel (Bmp) (10/07/17 18:09) Complete Blood Count With Diff (10/07/17 18:09) Magnesium (Mg) (10/07/17 18:09) Prothrombin Time / Inr (Pt) (10/07/17 18:09) Act Partial Throm Time (Ptt) (10/07/17 18:09) Troponin I (10/07/17 18:09) Chest, Single Ap (10/07/17 18:09) Ecg Monitoring (10/07/17 18:09) Iv Access Insert/Monitor (10/07/17 18:09) Oximetry (10/07/17 18:09) Sodium Chloride 0.9% Flush (Ns Flush) (10/07/17 18:15) Lorazepam Inj (Ativan Inj) (10/07/17 18:15) Labs Laboratory Tests Test 10/07/17 18:19 White Blood Count 8.6 TH/MM3 Red Blood Count 4.51 MIL/MM3 Hemoglobin 8.7 GM/DL Hematocrit 28.7 % Mean Corpuscular Volume 63.6 FL Mean Corpuscular Hemoglobin 19.3 PG Mean Corpuscular Hemoglobin Concent 30.4 % Red Cell Distribution Width 17.5 % Platelet Count 244 TH/MM3 Mean Platelet Volume 6.8 FL Neutrophils (%) (Auto) 63.5 % Lymphocytes (%) (Auto) 25.0 % Monocytes (%) (Auto) 9.7 % Eosinophils (%) (Auto) 1.0 % Basophils (%) (Auto) 0.8 % Neutrophils # (Auto) 5.4 TH/MM3 Lymphocytes # (Auto) 2.2 TH/MM3 Monocytes # (Auto) 0.8 TH/MM3 Eosinophils # (Auto) 0.1 TH/MM3 Basophils # (Auto) 0.1 TH/MM3 CBC Comment AUTO DIFF Prothrombin Time 13.4 SEC Prothromb Time International Ratio 1.2 RATIO Activated Partial Thromboplast Time 27.8 SEC Blood Urea Nitrogen 4 MG/DL Creatinine 0.74 MG/DL Random Glucose 148 MG/DL Calcium Level 8.0 MG/DL Magnesium Level 1.7 MG/DL Sodium Level 137 MEQ/L Potassium Level 3.0 MEQ/L Chloride Level 104 MEQ/L Carbon Dioxide Level 23.9 MEQ/L Anion Gap 9 MEQ/L Estimat Glomerular Filtration Rate 89 ML/MIN Troponin I LESS THAN 0.02 NG/ML MDM Medical Decision Making Medical Screen Exam Complete: Yes Emergency Medical Condition: Yes Medical Record Reviewed: Yes (her medical history is mainly psych and alcohol abuse. She does have a history of dysfunctional uterine bleeding and endometriosis but has had a uterine ablation. She has not had a period in 3 years.) Interpretation(s) EKG shows a sinus rhythm with a rate of 113. No acute ischemic change. Differential Diagnosis Differential diagnosis of chest pain includes but is not limited to musculoskeletal pain, pulmonary embolism, acute coronary syndrome, pneumonia, pleurisy Narrative Course This patient presents with chest pain and dizziness. She is tachycardic. I suspect anxiety. I have treated her with Ativan. CBC & BMP Diagram 10/07/17 18:19 Calcium Level 8.0 L, Magnesium Level 1.7 CBC is at baseline for her. trop < 0.02 No etiology for the chest pain has been discovered. The history, exam, diagnostic testing, and current condition do not suggest any significant pathology to warrant further testing, continued ED treatment, admission, or surgical evaluation at this point. No EMC was found. The patient 's condition is stable and appropriate for discharge. Diagnosis Primary Impression: Chest pain Qualified Codes: R07.9 - Chest pain, unspecified Patient Instructions: Chest Pain (DC), General Instructions Disposition: 01 DISCHARGE HOME Condition: Stable Mere Dominguez MD Oct 07, 2017 18:35
[2017-10-07 18:36] LABS: ANION GAP 9 MEQ/L (5-15); BICARBONATE 23.9 MEQ/L (21.0-32.0); MAGNESIUM 1.7 MG/DL (1.5-2.5)
[2017-10-07 18:37] LABS: BLOOD UREA NITROGEN 4 MG/DL (7-18)
[2017-10-07 18:39] LABS: APTT (PATIENT) 27.8 SEC (24.3-30.1); INTERNATIONAL NORMALIZED RATIO 1.2 RATIO; PROTHROMBIN TIME - PATIENT 13.4 SEC (9.8-11.6)
[2017-10-07 18:40] LABS: GLOMERULAR FILTRATION RATE 89 ML/MIN (>89)
--- NOTE | 2017-10-07 19:00 | RADRPT ---
EXAM DATE/TIME: 10/07/2017 18:24 [facility] COMPARISON: No previous studies available for comparison. INDICATIONS : Chest pain today. MEDICAL HISTORY : None. SURGICAL HISTORY : None. ENCOUNTER: Initial ACUITY: 1 day PAIN SCORE: 6/10 LOCATION: Bilateral chest FINDINGS: A single view of the chest demonstrates the lungs to be symmetrically aerated without evidence of mas s, infiltrate or effusion. The cardiomediastinal contours are unremarkable. Osseous structures are intact. CONCLUSION: No acute disease. Michael Sinclair MD on October 07, 2017 at 18:58 Board Certified Radiologist. This report was verified electronically.
[2017-10-07 19:11] LABS: SCAN/DIFF AUTO DIFF CONFIRMED
[2017-10-07 19:30] VITALS: BP 163/89
--- NOTE | 2017-10-08 16:47 | EKG ---
Date Performed: 10/07/2017 Time Performed: 18:10:56 PTAGE: 36 years EKG: SINUS TACHYCARDIA MODERATE ST DEPRESSION ABNORMAL ECG Compared to PREVIOUS TRACING , the patient is now tachycardic. PREVIOUS TRACIN07/05/2017 14.43 DOCTOR: Denita Pugh Interpretating Date/Time 10/08/2017 16:45:57
== END 2017-10-07 19:33 | disposition home or self-care (01) ==
LOC: PHED 17:55
DX: R07.9 Chest pain, unspecified (principal); R42 Dizziness and giddiness; R11.2 Nausea with vomiting, unspecified
CPT/HCPCS: 71010; 80048; 83735; 84484; 85025; 85610; 85730; 93005

== ENCOUNTER 2017-12-06 19:42 | Inpatient (IN) | payer OTHER ==
[~2017-12-06] VITALS: Ht 157.5 cm; Wt 62.2 kg
[~2017-12-06 19:42] MED LIST changes: -PROZ40CA PO
[2017-12-06 19:47] VITALS: BP 138/78; PULSE 98; RESP 14; TEMP 97.8; O2SAT 100
--- NOTE | 2017-12-06 22:24 | PD ---
HPI Chief Complaint: Psychiatric Symptoms Time Seen by Provider: 22:12 Travel History International Travel<30 days: No Contact w/Intl Traveler<30days: No Traveled to known affect area: No History of Present Illness HPI The patient was seen and examined in the presence of the nurse. She is brought in under police Farrell act. She has been feeling depressed for a couple of days and had suicidal thoughts today. She made a suicidal gesture with a shallow cut on her right wrist. Symptoms are moderate to severe in terms of depression. She reports compliance with her medications. She also has bipolar disorder. No alleviating factors. No exacerbating factors. PFSH Past Medical History Hx Anticoagulant Therapy: No Anemia: Yes Arthritis: No Asthma: No Blood Disorders: No Bipolar Disorder: Yes Anxiety: Yes Depression: Yes Heart Rhythm Problems: No Cancer: No Cardiovascular Problems: No High Cholesterol: No Chemotherapy: No Chest Pain: No Congestive Heart Failure: No COPD: No Cerebrovascular Accident: No Diabetes: No Diminished Hearing: No Endocrine: No Gastrointestinal Disorders: Yes (HX BOWEL OBSTRUCTION) Genitourinary: No Headaches: Yes Hiatal Hernia: Yes Hypertension: Yes Immune Disorder: No Implanted Vascular Access Dvce: No Musculoskeletal: Yes (SCOLIOSIS) Neurologic: Yes (MIGRAINES, HEADACHES) Psychiatric: Yes (BIPOLAR ) Reproductive: No Respiratory: No Immunizations Current: Yes Migraines: No Radiation Therapy: No Seizures: No Sleep Apnea: No ?: Not LMP: 3 YEARS AGO : 6 Para: 5 Miscarriage: 1 Tubal Ligation: Yes (2011) Past Surgical History Abdominal Surgery: Yes (gastric bypass: 2008, BOWEL OBSTRUCTION REPAIR) AICD: No Cardiac Surgery: No Section: Yes (X 2) Cholecystectomy: Yes Ear Surgery: No Endocrine Surgery: No Eye Surgery: No Genitourinary Surgery: No Gynecologic Surgery: Yes (C SECTION, TUBAL LIGATION,endometrial ablation) Joint Replacement: No Neurologic Surgery: No Oral Surgery: No Pacemaker: No Thoracic Surgery: No Other Surgery: Yes (GASTRIC BYPASS, TUMMY TUCK, BREAST LIFT) Social History Alcohol Use: Yes Tobacco Use: No Substance Use: Yes (ETOH 2-3 large vol. beers/day) Allergies-Medications (Allergen,Severity, Reaction): Coded Allergies: No Known Allergies (Verified Adverse Reaction, Unknown, 12/06/17) Reported Meds & Prescriptions Reported Meds & Active Scripts Active Indomethacin 25 Mg Cap 25 Mg PO TID Take with food, milk, or antacids to decrease stomach adverse effects. Fluoxetine (Fluoxetine HCl) 40 Mg Cap 80 Cap PO DAILY Topamax (Topiramate) 50 Mg Tab 50 Mg PO BID Geodon (Ziprasidone) 40 Mg Cap 80 Mg PO HS Gabapentin 400 Mg Cap 400 Cap PO TID Verapamil (Verapamil HCl) 40 Mg Tab 40 Mg PO Q8H Seroquel (Quetiapine Fumarate) 100 Mg Tab 100 Mg PO HS PRN Levetiracetam 500 Mg Tab 500 Mg PO BID Hydroxyzine HCl 50 Mg Tab 50 Mg PO QID PRN 30 Days Fabiola Allergy (Fexofenadine HCl) 60 Mg Tab 60 Mg PO BID Nasonex Nasal [place] (Mometasone Furoate) 50 Mcg/Act Naspr 2 [place] EACH NARE DAILY Ativan (Lorazepam) 1 Mg Tab 1 Mg PO Q8H PRN Reported Ferrous Sulfate DR (Ferrous Sulfate) 324 Mg Tabdr 324 Mg PO BIDPC Review of Systems General / Constitutional: No: Fever Eyes: No: Visual changes HENT: No: Headaches Cardiovascular: No: Chest Pain or Discomfort Respiratory: No: Shortness of Breath Gastrointestinal: No: Abdominal Pain Genitourinary: No: Dysuria Musculoskeletal: No: Pain Skin: No Rash Neurologic: No: Weakness Psychiatric: Positive: Depression, Suicidal Ideations Endocrine: No: Polydipsia Hematologic/Lymphatic: No: Easy Bruising Physical Exam Narrative GENERAL: Well-nourished, well-developed patient in no apparent distress. SKIN: Focused skin assessment reveals no rash and nodules. Skin is Warm and dry. There are some scratches on her right wrist and a three-quarter centimeter very shallow laceration HEAD: Atraumatic. Normocephalic. EYES: Pupils equal and round. No scleral icterus. No injection or drainage. ENT: No nasal bleeding or discharge. Mucous membranes pink and moist. NECK: Trachea midline. No JVD. CARDIOVASCULAR: Regular rate and rhythm. No murmur appreciated. RESPIRATORY: No accessory muscle use. Clear to auscultation. Breath sounds equal bilaterally. GASTROINTESTINAL: Abdomen soft, non-tender, nondistended. Hepatic and splenic margins not palpable. MUSCULOSKELETAL: No obvious deformities. No clubbing. No cyanosis. No edema. NEUROLOGICAL: Awake and alert. No obvious cranial nerve deficits. Motor grossly within normal limits. Normal speech. PSYCHIATRIC: depressed mood and flat affect; insight and judgment reduced . Data Data Last Documented VS Vital Signs Date Time Temp Pulse Resp B/P (MAP) Pulse Ox O2 Delivery O2 Flow Rate FiO2 12/06/17 19:47 97.8 98 14 138/78 (98) 100 Orders Orders Complete Blood Count With Diff (12/06/17 22:16) Comprehensive Metabolic Panel (12/06/17 22:16) Thyroid Stimulating Hormone (12/06/17 22:16) Ed Urine Pregnancytest Poc (12/06/17 22:16) Psych Screen (12/06/17 22:16) Drug Screen, Random Urine (12/06/17 22:16) Alcohol (Ethanol) (12/06/17 22:16) Labs Laboratory Tests Test 12/06/17 22:00 White Blood Count 9.4 TH/MM3 Red Blood Count 4.87 MIL/MM3 Hemoglobin 9.0 GM/DL Hematocrit 29.2 % Mean Corpuscular Volume 60.0 FL Mean Corpuscular Hemoglobin 18.5 PG Mean Corpuscular Hemoglobin Concent 30.8 % Red Cell Distribution Width 19.3 % Platelet Count 373 TH/MM3 Mean Platelet Volume 8.1 FL Neutrophils (%) (Auto) 71.1 % Lymphocytes (%) (Auto) 20.4 % Monocytes (%) (Auto) 6.2 % Eosinophils (%) (Auto) 0.8 % Basophils (%) (Auto) 1.5 % Neutrophils # (Auto) 6.7 TH/MM3 Lymphocytes # (Auto) 1.9 TH/MM3 Monocytes # (Auto) 0.6 TH/MM3 Eosinophils # (Auto) 0.1 TH/MM3 Basophils # (Auto) 0.1 TH/MM3 CBC Comment DIFF FINAL Differential Comment Blood Urea Nitrogen 8 MG/DL Creatinine 0.59 MG/DL Random Glucose 110 MG/DL Total Protein 8.0 GM/DL Albumin 3.8 GM/DL Calcium Level 8.0 MG/DL Alkaline Phosphatase 89 U/L Aspartate Amino Transf (AST/SGOT) 22 U/L Alanine Aminotransferase (ALT/SGPT) 25 U/L Total Bilirubin 0.1 MG/DL Sodium Level 145 MEQ/L Potassium Level 3.3 MEQ/L Chloride Level 113 MEQ/L Carbon Dioxide Level 18.1 MEQ/L Anion Gap 14 MEQ/L Estimat Glomerular Filtration Rate 115 ML/MIN Thyroid Stimulating Hormone 3rd Gen 1.660 uIU/ML Urine Opiates Screen NEG Urine Barbiturates Screen NEG Urine Amphetamines Screen NEG Urine Benzodiazepines Screen NEG Urine Cocaine Screen NEG Urine Cannabinoids Screen NEG Ethyl Alcohol Level 117 MG/DL [facility] Medical Decision Making Medical Screen Exam Complete: Yes Emergency Medical Condition: Yes Medical Record Reviewed: Yes Differential Diagnosis Suicidal ideation, depression, adjustment disorder Narrative Course I have reviewed the patient's electronic medical record. I have ordered medical screening workup CBC shows mild anemia Metabolic profile is normal Alcohol level is 117 suggesting acute intoxication Urine is negative Urine tox screen is negative Psychiatric screening is been ordered as she is here under Farrell act. Her right wrist laceration is very small and very shallow and requires literally one Steri-Strip. She is somewhat intoxicated but otherwise medically stable as can be made. She is getting sobering up time now. She will get psychiatric evaluation and disposition will be per psychiatry Diagnosis Primary Impression: Depression with suicidal ideation Oliver Ellis MD Dec 06, 2017 22:24
[2017-12-06 22:37] LABS: AUTOMATED NEUTROPHIL # 6.7 TH/MM3 (1.8-7.7); BASOPHIL # 0.1 TH/MM3 (0-0.2); BASOPHIL % 1.5 % (0.0-2.0); EOSINOPHIL # 0.1 TH/MM3 (0-0.4); EOSINOPHIL % 0.8 % (0.0-4.0); HEMATOCRIT 29.2 % (35.0-46.0); LYMPH % 20.4 % (9.0-44.0); LYMPHOCYTE # 1.9 TH/MM3 (1.0-4.8); MEAN CORPUSCULAR HEMOGLOBIN 18.5 PG (27.0-34.0); MEAN CORPUSCULAR HGB CONC 30.8 % (32.0-36.0); MEAN PLATELET VOLUME 8.1 FL (7.0-11.0); MONO % 6.2 % (0.0-8.0); MONOCYTE # 0.6 TH/MM3 (0-0.9); NEUT % 71.1 % (16.0-70.0); PLATELET COUNT 373 TH/MM3 (150-450); RED BLOOD COUNT 4.87 MIL/MM3 (4.00-5.30); RED CELL DISTRIBUTION WIDTH 19.3 % (11.6-17.2); WHITE BLOOD COUNT 9.4 TH/MM3 (4.0-11.0)
[2017-12-06 22:52] LABS: ALBUMIN 3.8 GM/DL (3.4-5.0); ALT (GPT) 25 U/L (10-53); AST (GOT) 22 U/L (15-37); BICARBONATE 18.1 MEQ/L (21.0-32.0); BLOOD UREA NITROGEN 8 MG/DL (7-18); CHLORIDE 113 MEQ/L (98-107); CREATININE 0.59 MG/DL (0.50-1.00); GLOMERULAR FILTRATION RATE 115 ML/MIN (>89); GLUCOSE,RANDOM 110 MG/DL (74-106); SODIUM (NA) 145 MEQ/L (136-145)
[2017-12-06 23:02] LABS: ALKALINE PHOSPHATASE 89 U/L (45-117); TOTAL BILIRUBIN ADULT 0.1 MG/DL (0.2-1.0)
[2017-12-07 00:50] VITALS: BP 131/76; PULSE 114; RESP 16; TEMP 98.4; O2SAT 98
[2017-12-07 06:19] VITALS: BP 140/79; PULSE 99; RESP 16; O2SAT 100
[2017-12-07] MEDS ORDERED: LORazepam 2 MG/ML VIAL IV PUSH PRN ×4 (08:15)
[2017-12-07] MEDS ORDERED: LORazepam 0.5 MG TAB PO PRN (08:15)
[2017-12-07] MEDS ORDERED: LORazepam 2 MG/ML VIAL IM PRN ×2 (08:15)
[2017-12-07] MEDS ORDERED: ACETAMINOPHEN 325 MG TAB PO PRN (08:15)
[2017-12-07] MEDS ORDERED: ALUMINUM/MAGNESIUM/SIMETH 30 ML CUP PO PRN (08:15)
[2017-12-07] MEDS ORDERED: LORazepam 2 MG TAB PO PRN (08:15)
[2017-12-07] MEDS ORDERED: FLUMAZENIL 0.5 MG/5 ML VIAL IV PUSH PRN (08:15)
[2017-12-07] MEDS ORDERED: MAGNESIUM HYDROXIDE SUSP 30 ML CUP PO PRN (08:15)
[2017-12-07] MEDS ORDERED: LORazepam 1 MG TAB PO PRN ×2 (08:15)
[2017-12-07 10:30] VITALS: BP 151/92; PULSE 93; RESP 18; TEMP 98.2; O2SAT 100
[2017-12-07] MEDS: NICOTINE 21 MG/24 HR PATCH T-DERMAL SCH (10:30)
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
[2017-12-07] MEDS: levETIRAcetam 500 MG TAB PO SCH ×2 (15:18→21:08)
[2017-12-07] MEDS ORDERED: GABAPENTIN 400 MG CAP PO SCH (18:00)
[2017-12-07 18:47] VITALS: BP 154/92; PULSE 83; RESP 17; TEMP 98.1; O2SAT 100
[2017-12-07] MEDS: GABAPENTIN 300 MG CAP PO SCH (19:00)
[2017-12-07] MEDS: REMOVE OLD NICODERM (NICOTINE) PATCH T-DERMAL SCH (21:00)
[2017-12-08 06:00] VITALS: BP 128/90; PULSE 58; RESP 16; TEMP 98.2; O2SAT 99
[2017-12-08] MEDS: NICOTINE 21 MG/24 HR PATCH T-DERMAL SCH (09:00)
[2017-12-08] MEDS: levETIRAcetam 500 MG TAB PO SCH ×2 (09:25→20:34)
[2017-12-08] MEDS: GABAPENTIN 300 MG CAP PO SCH ×2 (09:25→13:00)
[2017-12-08 12:36] LABS: BICARBONATE 21.6 MEQ/L (21.0-32.0); BLOOD UREA NITROGEN 10 MG/DL (7-18); CALCIUM 8.6 MG/DL (8.5-10.1); CHLORIDE 110 MEQ/L (98-107); CREATININE 0.58 MG/DL (0.50-1.00); GLOMERULAR FILTRATION RATE 118 ML/MIN (>89); GLUCOSE,RANDOM 82 MG/DL (74-106); SODIUM (NA) 141 MEQ/L (136-145)
[2017-12-08 12:38] LABS: CHOLESTEROL 164 MG/DL (120-200); TRIGLYCERIDES 151 MG/DL (42-150)
[2017-12-08 12:43] LABS: CHOLESTEROL/ HDL RATIO 2.89 RATIO; HDL CHOLESTEROL 56.7 MG/DL (40.0-60.0); LDL CHOLESTEROL 77 MG/DL (0-99)
[2017-12-08] MEDS ORDERED: diphenhydrAMINE HCL 50 MG CAP PO PRN (14:00)
[2017-12-08] MEDS ORDERED: BENZTROPINE MESYLATE 1 MG TAB PO PRN (14:00)
[2017-12-08] MEDS ORDERED: BENZTROPINE MESYLATE 2 MG/2 ML VIAL IM PRN (14:00)
--- NOTE | 2017-12-08 14:46 | HHI.PYPN ---
Subjective Chief Complaint: Depression Remarks Patient seen and examined with nurse. Chart reviewed. Case discussed with nursing staff. On my examination today, the patient says that she feels like her outpatient psychotropics are not "correct." She reports ongoing mood swings despite taking Geodon 40 mg twice daily, Seroquel 300 mg at bedtime and Topamax 50 mg twice daily. Sleep is reportedly poor as well secondary to anxious rumination. She has previously been diagnosed with bipolar disorder and reports that she may have had a hypomanic episode about a month ago. She also reports occasional deprecatory auditory hallucinations and command auditory hallucinations to hurt herself, although she denies any AVH presently. She notes that her brother, mother and sister all have bipolar disorder. She cannot remember much of previous medication trials but says that she has been on lithium in the past and was unable to tolerate this. Patient reports that she had previously been a heavy drinker but had been abstinent for the last month until drinking alcohol at the time of her suicidal gesture. No physical complaints presently. Review of Systems Except as stated in HPI: all other systems reviewed are Neg Mental Status Examination Appearance: Appropriate Consciousness: Alert Orientation: x4 Motor Activity: Normal gait, Other (no motor abnormalities noted. No signs of withdrawal noted.) Speech: Unremarkable Language: Adequate Fund of Knowledge: Adequate Attention and Concentration: Adequate Memory: Unremarkable Mood: Sad Affect: Blunt Thought Process & Associations: Intact, Logical, Linear Thought Content: Appropriate Hallucination Type: None Delusion Type: None Suicidal Ideation: Yes (no reported urge to hurt herself on the inpatient unit) Suicidal Plan: No Suicidal Intention: No Homicidal Ideation: No Homicidal Plan: No Homicidal Intention: No Insight: Fair Judgment: Impulsive Results Labs Test 12/08/17 10:36 Blood Urea Nitrogen 10 MG/DL Creatinine 0.58 MG/DL Random Glucose 82 MG/DL Calcium Level 8.6 MG/DL Sodium Level 141 MEQ/L Potassium Level 3.6 MEQ/L Chloride Level 110 MEQ/L Carbon Dioxide Level 21.6 MEQ/L Anion Gap 9 MEQ/L Estimat Glomerular Filtration Rate 118 ML/MIN Triglycerides Level 151 MG/DL Cholesterol Level 164 MG/DL LDL Cholesterol 77 MG/DL HDL Cholesterol 56.7 MG/DL Cholesterol/HDL Ratio 2.89 RATIO Labs reviewed. Anemia appears to be chronic. Vitals/IOs Vital Signs Date Time Temp Pulse Resp B/P (MAP) Pulse Ox O2 Delivery O2 Flow Rate FiO2 12/08/17 06:00 98.2 58 16 128/90 (103) 99 12/07/17 06:19 Room Air Assessment & Plan Problem List: (1) Bipolar 1 disorder, depressed ICD Codes: F31.9 - Bipolar disorder, unspecified Status: Acute Assessment & Plan Discontinue reported home Topamax due to side effects and Geodon due to lack of efficacy. Titrate Seroquel to 400mg qHS for mood stabilization with plans for further titration to effect. Add Atarax as needed for anxiety, Benadryl for insomnia, Cogentin for EPS. Patient remains on Keppra for seizures as this reportedly controls this issue well. We did discuss that Keppra can be associated with psychiatric symptoms; patient has not noted this to be the case. Continue gabapentin 400mg TID for fibromyalgia. Continue to monitor on the inpatient unit. Continue other medications and care as ordered. Justification for Cont. Inpt. Med changes. Monitoring for impairment in safety. Risk for decompensation in less restrictive environment. Discharge Planning Pending psychiatric stabilization Request HC Surrog/Guard Advoc?: No Surjit Urena MD Dec 08, 2017 14:46
[2017-12-08] MEDS: hydrOXYzine HCL 50 MG TAB PO PRN (17:16)
[2017-12-08 17:39] LABS: HEMOGLOBIN A1C 5.8 % (4.3-6.0)
[2017-12-08] MEDS: GABAPENTIN 400 MG CAP PO SCH (18:47)
[2017-12-08 19:28] VITALS: BP 122/88; PULSE 77; RESP 18; TEMP 99.1; O2SAT 98
[2017-12-08] MEDS: QUEtiapine FUMARATE 200 MG TAB PO SCH (20:34)
[2017-12-08] MEDS: REMOVE OLD NICODERM (NICOTINE) PATCH T-DERMAL SCH (20:36)
[2017-12-09 05:36] VITALS: BP 124/70; PULSE 75; RESP 17; TEMP 98.2; O2SAT 99
[2017-12-09] MEDS: NICOTINE 21 MG/24 HR PATCH T-DERMAL SCH (09:00)
[2017-12-09] MEDS ORDERED: QUEtiapine FUMARATE 100 MG TAB PO SCH (09:00)
[2017-12-09] MEDS: levETIRAcetam 500 MG TAB PO SCH ×2 (10:04→20:41)
[2017-12-09] MEDS: GABAPENTIN 400 MG CAP PO SCH ×3 (10:04→18:00)
--- NOTE | 2017-12-09 14:35 | HHI.PYPN ---
Subjective Chief Complaint: Depression Remarks Patient seen and examined with nurse. Chart reviewed. Case discussed with nursing staff. No behavioral issues overnight. On my examination today, the patient reports ongoing low mood although she denies any hopelessness, worthlessness or morbid guilt. She denies any suicidal ideation. She slept much better with titration of Seroquel. She denies any AVH. Denies any side effects from medications. No physical complaints. No seizures or seizure auras. We discuss pharmacotherapeutic options going forward and settle on titration of her Seroquel by addition of a morning dose. R/B/A discussed with patient. Review of Systems Except as stated in HPI: all other systems reviewed are Neg Mental Status Examination Appearance: Appropriate Consciousness: Alert Orientation: x4 Motor Activity: Normal gait, Other (no abnormal motor movements noted) Speech: Unremarkable Language: Adequate Fund of Knowledge: Adequate Attention and Concentration: Adequate Memory: Unremarkable Mood: Sad Affect: Other (more reactive today) Thought Process & Associations: Intact, Logical, Linear Thought Content: Appropriate Hallucination Type: None Delusion Type: None Suicidal Ideation: No Suicidal Plan: No Suicidal Intention: No Homicidal Ideation: No Homicidal Plan: No Homicidal Intention: No Insight: Fair Judgment: Impulsive Mental Status Exam Remarks No signs of withdrawal noted Results Labs Labs reviewed. No new labs. Vitals/IOs Vital Signs Date Time Temp Pulse Resp B/P (MAP) Pulse Ox O2 Delivery O2 Flow Rate FiO2 12/09/17 05:36 98.2 75 17 124/70 (88) 99 12/07/17 06:19 Room Air Intake and Output 12/09/17 12/09/17 12/10/17 08:00 16:00 00:00 Intake Total 240 ml 240 ml Balance 240 ml 240 ml Assessment & Plan Problem List: (1) Bipolar 1 disorder, depressed ICD Codes: F31.9 - Bipolar disorder, unspecified Status: Acute Assessment & Plan Titrate Seroquel to 100 mg in the morning and 400 mg at bedtime. Check updated CBC and iron studies in the morning. Continue to monitor on an inpatient unit. Continue other medications and care as ordered. Justification for Cont. Inpt. Risk for decompensation in less restrictive environment. Discharge Planning Pending psychiatric stabilization. Request HC Surrog/Guard Advoc?: No Surjit Urena MD Dec 09, 2017 14:35
[2017-12-09 17:40] VITALS: BP 164/83; PULSE 88; RESP 14; TEMP 98.2; O2SAT 99
[2017-12-09] MEDS: REMOVE OLD NICODERM (NICOTINE) PATCH T-DERMAL SCH (20:40)
[2017-12-09] MEDS: QUEtiapine FUMARATE 200 MG TAB PO SCH (20:41)
[2017-12-09] MEDS: hydrOXYzine HCL 50 MG TAB PO PRN (20:42)
[2017-12-10 06:07] VITALS: BP 141/68; PULSE 75; RESP 16; TEMP 98.2; O2SAT 99
[2017-12-10 08:12] LABS: AUTOMATED NEUTROPHIL # 4.1 TH/MM3 (1.8-7.7); BASOPHIL # 0.1 TH/MM3 (0-0.2); BASOPHIL % 1.8 % (0.0-2.0); EOSINOPHIL # 0.3 TH/MM3 (0-0.4); EOSINOPHIL % 4.2 % (0.0-4.0); HEMATOCRIT 29.3 % (35.0-46.0); HEMOGLOBIN 8.8 GM/DL (11.6-15.3); LYMPH % 23.7 % (9.0-44.0); LYMPHOCYTE # 1.6 TH/MM3 (1.0-4.8); MEAN CORPUSCULAR HEMOGLOBIN 18.1 PG (27.0-34.0); MEAN CORPUSCULAR HGB CONC 30.2 % (32.0-36.0); MEAN PLATELET VOLUME 7.5 FL (7.0-11.0); MONO % 8.6 % (0.0-8.0); MONOCYTE # 0.6 TH/MM3 (0-0.9); NEUT % 61.7 % (16.0-70.0); PLATELET COUNT 400 TH/MM3 (150-450); RED BLOOD COUNT 4.88 MIL/MM3 (4.00-5.30); WHITE BLOOD COUNT 6.7 TH/MM3 (4.0-11.0)
[2017-12-10 08:36] LABS: % SATURATION IRON PROFILE 2.5 % (20-50); IRON (FE) 12 MCG/DL (50-170); TOTAL IRON BINDING CAPACITY 487 MCG/DL (250-450)
[2017-12-10 08:39] LABS: FERRITIN 9 NG/ML (8-252)
[2017-12-10] MEDS: GABAPENTIN 400 MG CAP PO SCH ×2 (08:56→13:15)
[2017-12-10] MEDS: levETIRAcetam 500 MG TAB PO SCH (08:56)
[2017-12-10] MEDS ORDERED: QUEtiapine FUMARATE 100 MG TAB PO SCH (09:00)
[2017-12-10] MEDS ORDERED: HYDR50TA94 PO (12:19)
[2017-12-10] MEDS ORDERED: NEUR400C PO (12:19)
[2017-12-10] MEDS ORDERED: QUET1TAB8 PO (12:19)
[2017-12-10] MEDS ORDERED: FERR324T4 PO (12:19)
[2017-12-10] MEDS ORDERED: QUET1TAB9 PO (12:19)
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
== END 2017-12-10 15:10 | disposition home or self-care (01) | DRG 885 ==
LOC: NEDAMB 19:42 → NEDA 12-07 08:14 → H260 12-07 10:25
PROVIDERS: ADMIT Psychiatry & Neurology Psychiatry; ATTEND Psychiatry & Neurology Psychiatry
DX: F31.30 Bipolar disorder, current episode depressed, mild or moderate severity, unspecified (principal); R45.851 Suicidal ideations; M41.9 Scoliosis, unspecified; I10 Essential (primary) hypertension; F13.10 Sedative, hypnotic or anxiolytic abuse, uncomplicated; D50.9 Iron deficiency anemia, unspecified; S61.511A Laceration without foreign body of right wrist, initial encounter; F10.129 Alcohol abuse with intoxication, unspecified; F60.3 Borderline personality disorder; F41.9 Anxiety disorder, unspecified; G47.00 Insomnia, unspecified; M79.7 Fibromyalgia; Y90.5 Blood alcohol level of 100-119 mg/100 ml; X78.9XXA Intentional self-harm by unspecified sharp object, initial encounter; Z81.8 Family history of other mental and behavioral disorders; Z91.5 Personal history of self-harm; Z98.84 Bariatric surgery status
CPT/HCPCS: 80048; 80053; 80061; 80307; 82728; 83036; 83540; 83550; 84443; 84703; 85025; 99285